=== PATIENT | female | born 1990 | race American Indian/Alaskan Native ===

== ENCOUNTER 2019-04-28 17:10 | Inpatient (IN) | payer BC ==
[2019-04-28] MEDS: Pantoprazole 40 MG Tab.CR PO SCH (18:17)
[2019-04-28] MEDS ORDERED: Famotidine 20 MG/2 ML SDV IVPUSH ONE (18:49)
[2019-04-28] MEDS ORDERED: Lactated Ringers 1,000 ML IV ONE (18:50)
[2019-04-28] MEDS ORDERED: Alum Hydrox/Mag Hydrox/Simeth 30 ML, Lidocaine 2% 15 ML PO ONE ×2 (18:54)
[2019-04-28] MEDS: Lactated Ringers 1,000 ML IV SCH (20:34)
--- NOTE | 2019-04-28 22:52 | PCM.LDHP ---
L&D History of Present Illness - General Date of Service: 04/28/19 Admit Problem/Dx: Patient Status Order with Admit Dx/Problem 04/28/19 17:21 Patient Status [ADT] Routine Admission Diagnosis/Problem Admission Diagnosis/Problem Acute pancreatitis Source of Information: Patient History Limitations: Reports: No Limitations - History of Present Illness Introduction:: 28 yo A2 female at 33 weeks and 4 days gestation presented for evaluation of upper abdominal pain. She states that it started during the night, but when she woke up at 6:30 am she was feeling upper abdominal pain that radiated through to her back. It is a constant pain and is worse on the right side. The pain is aggravated by eating or drinking. She also has increased pain with deep breaths, laughing or going over bumps when she was driving in to the hospital. She denies nausea or vomiting or diarrhea. She is feeling hungry, but trying to eat or drink anything causes an increase in her pain. She rated her pain as 6-7/10. She did have a cholecystectomy about 8 years ago after her last baby delivered. She had gallbladder attacks during that and was hospitalized a number of times with her last . She denies fever or chills. She denies any alcohol use. She has been using a heating pad which helped some. We gave her a pantoprazole when she first came in to the hospital that didn't seem to help. I then gave her a GI cocktail and then Pepcid 20 mg IV which did help relieve some of her discomfort, but still a constant pain that is worse with standing, walking and deep breaths. She is rating her pain now as 3-4/10. She has been having a lot of heartburn with her , worse in the last couple of weeks. She has not been feeling any contractions and baby has been moving well. Her NST is reactive and no contractions noted. She did test positive for Influenza B on 04/16/19 and was treated with Tamiflu. - Related Data Allergies/Adverse Reactions: Allergies Allergy/AdvReac Type Severity Reaction Status Date / Time No Known Allergies Allergy Verified 04/28/19 17:21 Past Medical History Gastrointestinal History: Reports: Cholelithiasis, GERD Other Gastrointestinal History: Cholecystectomy about 2010 : 4 Para: 1 (C/S due to breech presentation) LMP (Approximate): Other OB/BYN History: 1 miscarriage and 1 TA Other Psychiatric History: depression Social & Family History - Family History GI: Reports: Pancreatitis (Mother had pancreatitis this summer 2018, unknown etiology) H&P Review of Systems - Review of Systems: Review Of Systems: See Below General: Reports: No Symptoms HEENT: Reports: No Symptoms Pulmonary: Reports: Pleuritic Chest Pain Gastrointestinal: Reports: Abdominal Pain, Other (Heartburn) Genitourinary: Reports: No Symptoms Musculoskeletal: Reports: No Symptoms Skin: Reports: No Symptoms Psychiatric: Reports: No Symptoms Neurological: Reports: No Symptoms Hematologic/Lymphatic: Reports: No Symptoms L&D Exam - Exam Exam: See Below - Vital Signs Weight: 93.44 kg - OB Specific Contraction Frequency (min): None Movement: Active Heart Tones: Present Heart Tones per Min: 135 Heart Rate (FHR) Variability: Moderate (6-25 bmp) Presentation: Vertex - Exam General: Alert, Oriented, Mild Distress HEENT: EOMI, Hearing Intact, Pupils Equal Neck: Supple, Trachea Midline Lungs: Normal Respiratory Effort, Decreased Breath Sounds (Decreased breath sounds on right side. No crackles or wheezes) Cardiovascular: Regular Rate, Regular Rhythm GI/Abdominal Exam: Normal Bowel Sounds, Soft, Tender (Tender to palpation in RUQ and epigastric area. Increased pain with deep breaths. ) Rectal Exam: Deferred Back Exam: Normal Inspection, Full Range of Motion, CVA Tenderness (R) Extremities: Normal Inspection, Non-Tender, No Pedal Edema Skin: Warm, Dry, Intact Neurological: Cranial Nerves Intact, Normal Gait, Normal Speech Psychiatric: Alert, Normal Affect, Normal Mood - Patient Data Lab Results Last 24 hrs: Laboratory Results - last 24 hr 04/28/19 04/28/19 04/28/19 Range/Units 18:00 18:00 18:00 WBC 11.50 H (3.98-10.04) K/mm3 RBC 3.71 L (3.98-5.22) M/mm3 Hgb 11.4 (11.2-15.7) gm/dl Hct 34.9 (34.1-44.9) % MCV 94.1 (79.4-94.8) fl MCH 30.7 (25.6-32.2) pg MCHC 32.7 (32.2-35.5) g/dl RDW Std Deviation 44.3 (36.4-46.3) fL Plt Count 305 (182-369) K/mm3 MPV 9.3 L (9.4-12.3) fl Neut % (Auto) 73.8 H (34.0-71.1) % Lymph % (Auto) 15.8 L (19.3-51.7) % [place] % (Auto) 8.8 (4.7-12.5) % Eos % (Auto) 1.1 (0.7-5.8) Baso % (Auto) 0.2 (0.1-1.2) % Neut # (Auto) 8.48 H (1.56-6.13) K/mm3 Lymph # (Auto) 1.82 (1.18-3.74) K/mm3 [place] # (Auto) 1.01 H (0.24-0.36) K/mm3 Eos # (Auto) 0.13 (0.04-0.36) K/mm3 Baso # (Auto) 0.02 (0.01-0.08) K/mm3 Manual Slide Review Not Reportable Sodium 140 (136-145) mEq/L Potassium 3.5 (3.5-5.1) mEq/L Chloride 106 (98-107) mEq/L Carbon Dioxide 22 (21-32) mEq/L Anion Gap 15.5 H (5-15) BUN 5 L (7-18) mg/dL Creatinine 0.3 L (0.55-1.02) mg/dL Est Cr Clr Drug Dosing 241.08 mL/min Estimated GFR (MDRD) > 60 (>60) mL/min BUN/Creatinine Ratio 16.7 (14-18) Glucose 95 (74-106) mg/dL Calcium 8.6 (8.5-10.1) mg/dL Total Bilirubin 0.4 (0.2-1.0) mg/dL AST 19 (15-37) U/L ALT 15 (14-59) U/L Alkaline Phosphatase 109 (46-116) U/L C-Reactive Protein 1.2 H* (<1.0) mg/dL Total Protein 6.6 (6.4-8.2) g/dl Albumin 2.5 L (3.4-5.0) g/dl Globulin 4.1 gm/dL Albumin/Globulin Ratio 0.6 L (1-2) Amylase 136 H (25-115) U/L Lipase (73-393) U/L Urine Color (Yellow) Urine Appearance (Clear) Urine pH (5.0-8.0) Ur Specific [place] (1.005-1.030) Urine Protein (Negative) Urine Glucose (UA) (Negative) Urine Ketones (Negative) Urine Occult Blood (Negative) Urine Nitrite (Negative) Urine Bilirubin (Negative) Urine Urobilinogen (0.2-1.0) Ur Leukocyte Esterase (Negative) Urine RBC (0-5) /hpf Urine WBC (0-5) /hpf Ur Squamous Epith Cells (0-5) /hpf Urine Bacteria (FEW) /hpf Urine Mucus (FEW) /hpf 04/28/19 04/28/19 Range/Units 18:00 19:00 WBC (3.98-10.04) K/mm3 RBC (3.98-5.22) M/mm3 Hgb (11.2-15.7) gm/dl Hct (34.1-44.9) % MCV (79.4-94.8) fl MCH (25.6-32.2) pg MCHC (32.2-35.5) g/dl RDW Std Deviation (36.4-46.3) fL Plt Count (182-369) K/mm3 MPV (9.4-12.3) fl Neut % (Auto) (34.0-71.1) % Lymph % (Auto) (19.3-51.7) % [place] % (Auto) (4.7-12.5) % Eos % (Auto) (0.7-5.8) Baso % (Auto) (0.1-1.2) % Neut # (Auto) (1.56-6.13) K/mm3 Lymph # (Auto) (1.18-3.74) K/mm3 [place] # (Auto) (0.24-0.36) K/mm3 Eos # (Auto) (0.04-0.36) K/mm3 Baso # (Auto) (0.01-0.08) K/mm3 Manual Slide Review Sodium (136-145) mEq/L Potassium (3.5-5.1) mEq/L Chloride (98-107) mEq/L Carbon Dioxide (21-32) mEq/L Anion Gap (5-15) BUN (7-18) mg/dL Creatinine (0.55-1.02) mg/dL Est Cr Clr Drug Dosing mL/min Estimated GFR (MDRD) (>60) mL/min BUN/Creatinine Ratio (14-18) Glucose (74-106) mg/dL Calcium (8.5-10.1) mg/dL Total Bilirubin (0.2-1.0) mg/dL AST (15-37) U/L ALT (14-59) U/L Alkaline Phosphatase (46-116) U/L C-Reactive Protein (<1.0) mg/dL Total Protein (6.4-8.2) g/dl Albumin (3.4-5.0) g/dl Globulin gm/dL Albumin/Globulin Ratio (1-2) Amylase (25-115) U/L Lipase 1055 H (73-393) U/L Urine Color Yellow (Yellow) Urine Appearance Clear (Clear) Urine pH 7.5 (5.0-8.0) Ur Specific [place] 1.020 (1.005-1.030) Urine Protein Negative (Negative) Urine Glucose (UA) Negative (Negative) Urine Ketones Negative (Negative) Urine Occult Blood Negative (Negative) Urine Nitrite Negative (Negative) Urine Bilirubin Negative (Negative) Urine Urobilinogen 0.2 (0.2-1.0) Ur Leukocyte Esterase Negative (Negative) Urine RBC 0-5 (0-5) /hpf Urine WBC 0-5 (0-5) /hpf Ur Squamous Epith Cells 0-5 (0-5) /hpf Urine Bacteria Moderate H (FEW) /hpf Urine Mucus Moderate H (FEW) /hpf Result Diagrams: 04/28/19 18:00 04/28/19 18:00 Imaging Impressions Last 24 hrs: Abdominal ultrasound read as no focal hepatic lesion. STatus post cholecystectomy, no abnormal collection demonstrated in the gallbladder fossa. The common bile duct is nondilated. Pancreas is not well evaluated. Mild distention of the right renal pelvis and right ureter is mildly prominent, most likely due to . CXR done tonight, report pending but appears clear to me. - Problem List (1) Acute pancreatitis SNOMED Code(s): 119009119 ICD Code: K85.90 - ACUTE PANCREATITIS WITHOUT NECROSIS OR INFECTION, UNSP Status: Acute Current Visit: Yes (2) 33 weeks gestation of SNOMED Code(s): 70073479 ICD Code: Z3A.33 - 33 WEEKS GESTATION OF Status: Acute Current Visit: Yes (3) Status post cholecystectomy SNOMED Code(s): 118881962, 01631108, 227817890 ICD Code: Z90.49 - ACQUIRED ABSENCE OF OTHER SPECIFIED PARTS OF DIGESTIVE TRACT Status: Acute Current Visit: Yes (4) GERD (gastroesophageal reflux disease) SNOMED Code(s): 012861016 ICD Code: K21.9 - GASTRO-ESOPHAGEAL REFLUX DISEASE WITHOUT ESOPHAGITIS Status: Acute Current Visit: Yes Problem List Initiated/Reviewed/Updated: Yes Orders Last 24hrs: Active Orders 24 hr Category Date Time Status Patient Status [ADT] Routine ADT 04/28/19 17:21 Active Antiembolic Devices [RC] .Routine Care 04/28/19 22:22 Ordered Non Stress Test [RC] PER UNIT ROUTINE Care 04/28/19 17:21 Active Non Stress Test [RC] PER UNIT ROUTINE Care 04/28/19 22:18 Ordered Intake and Output [RC] Q2H Care 04/28/19 22:21 Ordered Notify Provider Consults [RC] ASDIRECTED Care 04/28/19 22:27 Ordered Notify Provider [RC] PRN Care 04/28/19 22:19 Ordered VTE/DVT Education [RC] PER UNIT ROUTINE Care 04/28/19 22:22 Ordered Vital Signs [RC] PER UNIT ROUTINE Care 04/28/19 17:21 Active Vital Signs [RC] PER UNIT ROUTINE Care 04/28/19 22:19 Ordered Consult to Physician [CONS] Urgent Cons 04/28/19 22:18 Ordered Nothing Per Oral Diet [DIET] Diet 04/28/19 Dinner Ordered Abdomen Ltd [US] Routine Exams 04/28/19 20:48 Ordered Chest 2V [CR] Routine Exams 04/28/19 20:48 Ordered CBC WITH AUTO DIFF [HEME] AM Lab 04/29/19 05:11 Ordered COMPREHENSIVE METABOLIC PN,CMP [CHEM] AM Lab 04/29/19 05:11 Ordered LIPASE [CHEM] AM Lab 04/29/19 05:11 Ordered Famotidine [Pepcid] Med 04/28/19 22:18 Ordered 20 mg IV Q12H PRN Lactated Ringers [Ringers, Lactated] 1,000 ml Med 04/28/19 19:00 Active IV ASDIRECTED Ondansetron [Zofran] Med 04/28/19 22:18 Ordered 4 mg IV Q4H PRN Pantoprazole [ProTONIX] Med 04/28/19 17:45 Active 40 mg PO DAILY fentaNYL [Sublimaze] Med 04/28/19 22:41 Ordered 25 mcg IVPUSH Q1H PRN DVT/VTE Prophylaxis Reflex [OM.PC] Routine Oth 04/28/19 22:18 Ordered Resuscitation Status Routine Resus Stat 04/28/19 17:21 Ordered Medication Orders Famotidine (Pepcid) 20 mg IV Q12H PRN PRN Reason: Heartburn Fentanyl (Sublimaze) 25 mcg IVPUSH Q1H PRN PRN Reason: Abdominal Pain Lactated Ringer's (Ringers, Lactated) 1,000 mls @ 200 mls/hr IV ASDIRECTED [facility] Last Admin: 04/28/19 20:34 Dose: 100 mls/hr Ondansetron HCl (Zofran) 4 mg IV Q4H PRN PRN Reason: Nausea/Vomiting Pantoprazole Sodium (Protonix) 40 mg PO DAILY [facility] Last Admin: 04/28/19 18:17 Dose: 40 mg Assessment/Plan Comment:: 28 year old A2 at 33+4 weeks gestation with acute pancreatitis, mild. Symptoms started this morning. No nausea or vomiting, but limited oral intake due to increased pain when she tries to eat or drink. GERD has been more severe lately as well. Normal , no signs of labor. Plan: Consult hospitalist, DR. Gamble to assist with medical management of acute pancreatitis. IV hydration and NPO for now. LR at 200 ml/hr. Monitor ins and outs every 2 hours and adjust IV fluid rate if needed for poor urine output. She has voided 3 times since we started IV fluids. DVT prophylaxis per protocol. Pain management - currently has mild pain, 3/10 and is not wanting any pain meds. Will order IV fentanyl as needed Repeat labs in am Will do daily NST to monitor well being and as needed if she starts feeling contractions or decreased movement.
[2019-04-28] MEDS: fentaNYL 100 MCG/2 ML SDV IVPUSH PRN (23:19)
--- NOTE | 2019-04-29 00:50 | PCM.CONS ---
H&P History of Present Illness - General Date of Service: 04/29/19 Admit Problem/Dx: Patient Status Order with Admit Dx/Problem 04/28/19 17:21 Patient Status [ADT] Routine Admission Diagnosis/Problem Admission Diagnosis/Problem Acute pancreatitis Source of Information: Patient, Family, Old Records, Provider, RN Notes Reviewed History Limitations: Reports: No Limitations - History of Present Illness Initial Comments - Free Text/Narative: This is a 28 yo A2 at 33 weeks and 4 days gestation with past medical hx/o GERD and Cholelithiasis S/p Cholecystectomy in 2010w ho presents to OB for right upper quadrant pain with radiation to her back that started a couple of night ago and was diagnosed with acute pancreatitis. The hospitalist service was consulted to help with further evaluation and medical management. - Related Data Allergies/Adverse Reactions: Allergies Allergy/AdvReac Type Severity Reaction Status Date / Time No Known Allergies Allergy Verified 04/28/19 17:21 Past Medical History Gastrointestinal History: Reports: Cholelithiasis, GERD Other Gastrointestinal History: Cholecystectomy about 2010 [employer] History: Reports: , Spontaneous , Therapeutic Other OB/BYN History: 1 miscarriage and 1 TA Psychiatric History: Reports: Depression Other Psychiatric History: depression - Past Surgical History HEENT Surgical History: Reports: Myringotomy w Tube(s), Oral Surgery Female Surgical History: Reports: Section Social & Family History - Family History GI: Reports: Pancreatitis (Mother had pancreatitis this summer 2018, unknown etiology) - Tobacco Use Smoking Status *Q: Never Smoker - Recreational Drug Use Recreational Drug Type: Reports: Marijuana/Hashish Other Recreational Drug Type: pt denies drug use with ; notes she had Marijuana in August 2018 H&P Review of Systems - Review of Systems: Review Of Systems: See Below General: Reports: Decreased Appetite Pulmonary: Denies: Shortness of Breath Cardiovascular: Denies: Chest Pain, Lightheadedness Gastrointestinal: Reports: Abdominal Pain. Denies: Nausea, Vomiting Genitourinary: Reports: No Symptoms Musculoskeletal: Reports: No Symptoms Skin: Denies: Rash Psychiatric: Denies: Depression, Anxiety, Hallucinations Neurological: Reports: No Symptoms Hematologic/Lymphatic: Reports: No Symptoms Immunologic: Reports: No Symptoms Exam - Exam Exam: See Below - Vital Signs Weight: 93.44 kg - Exam General: Alert, Oriented, Cooperative HEENT: Conjunctiva Clear, EACs Clear, EOMI, Hearing Intact, Mucosa Moist & [place] , Nares Patent, Normal Nasal Septum, Posterior Pharynx Clear, Pupils Reactive, TMs Clear Neck: Supple, Trachea Midline Lungs: Clear to Auscultation, Normal Respiratory Effort Cardiovascular: Regular Rate, Regular Rhythm GI/Abdominal Exam: Normal Bowel Sounds, No Abnormal Bruit, No Mass, Tender ( right upper quadrant), Other (enlarged abdomen) (Female) Exam: Deferred Rectal (Female) Exam: Deferred Back Exam: Normal Inspection, Decreased Range of Motion Extremities: Normal Inspection, Normal Range of Motion, Non-Tender, No Pedal Edema, Normal Capillary Refill Peripheral Pulses: 2+: Posterior Tibial (L), Posterior Tibial (R), Dorsalis Pedis (L), Dorsalis Pedis (R) Skin: Warm, Dry, Intact Neuro Extensive - Mental Status: Oriented x3, Normal Cognition, Memory Intact Neuro Extensive - Motor, Sensory, Reflexes: CN II-XII Intact (limited but grossly intact), Normal Gait Psychiatric: Alert, Normal Affect, Normal Mood - Patient Data Lab Results Last 24 hrs: Laboratory Results - last 24 hr 04/28/19 04/28/19 04/28/19 Range/Units 18:00 18:00 18:00 WBC 11.50 H (3.98-10.04) K/mm3 RBC 3.71 L (3.98-5.22) M/mm3 Hgb 11.4 (11.2-15.7) gm/dl Hct 34.9 (34.1-44.9) % MCV 94.1 (79.4-94.8) fl MCH 30.7 (25.6-32.2) pg MCHC 32.7 (32.2-35.5) g/dl RDW Std Deviation 44.3 (36.4-46.3) fL Plt Count 305 (182-369) K/mm3 MPV 9.3 L (9.4-12.3) fl Neut % (Auto) 73.8 H (34.0-71.1) % Lymph % (Auto) 15.8 L (19.3-51.7) % [place] % (Auto) 8.8 (4.7-12.5) % Eos % (Auto) 1.1 (0.7-5.8) Baso % (Auto) 0.2 (0.1-1.2) % Neut # (Auto) 8.48 H (1.56-6.13) K/mm3 Lymph # (Auto) 1.82 (1.18-3.74) K/mm3 [place] # (Auto) 1.01 H (0.24-0.36) K/mm3 Eos # (Auto) 0.13 (0.04-0.36) K/mm3 Baso # (Auto) 0.02 (0.01-0.08) K/mm3 Manual Slide Review Not Reportable Sodium 140 (136-145) mEq/L Potassium 3.5 (3.5-5.1) mEq/L Chloride 106 (98-107) mEq/L Carbon Dioxide 22 (21-32) mEq/L Anion Gap 15.5 H (5-15) BUN 5 L (7-18) mg/dL Creatinine 0.3 L (0.55-1.02) mg/dL Est Cr Clr Drug Dosing 241.08 mL/min Estimated GFR (MDRD) > 60 (>60) mL/min BUN/Creatinine Ratio 16.7 (14-18) Glucose 95 (74-106) mg/dL Lactic Acid (0.4-2.0) mmol/L Calcium 8.6 (8.5-10.1) mg/dL Total Bilirubin 0.4 (0.2-1.0) mg/dL AST 19 (15-37) U/L ALT 15 (14-59) U/L Alkaline Phosphatase 109 (46-116) U/L C-Reactive Protein 1.2 H* (<1.0) mg/dL Total Protein 6.6 (6.4-8.2) g/dl Albumin 2.5 L (3.4-5.0) g/dl Globulin 4.1 gm/dL Albumin/Globulin Ratio 0.6 L (1-2) Amylase 136 H (25-115) U/L Lipase (73-393) U/L Urine Color (Yellow) Urine Appearance (Clear) Urine pH (5.0-8.0) Ur Specific [place] (1.005-1.030) Urine Protein (Negative) Urine Glucose (UA) (Negative) Urine Ketones (Negative) Urine Occult Blood (Negative) Urine Nitrite (Negative) Urine Bilirubin (Negative) Urine Urobilinogen (0.2-1.0) Ur Leukocyte Esterase (Negative) Urine RBC (0-5) /hpf Urine WBC (0-5) /hpf Ur Squamous Epith Cells (0-5) /hpf Urine Bacteria (FEW) /hpf Urine Mucus (FEW) /hpf 04/28/19 04/28/19 04/28/19 Range/Units 18:00 19:00 23:35 WBC (3.98-10.04) K/mm3 RBC (3.98-5.22) M/mm3 Hgb (11.2-15.7) gm/dl Hct (34.1-44.9) % MCV (79.4-94.8) fl MCH (25.6-32.2) pg MCHC (32.2-35.5) g/dl RDW Std Deviation (36.4-46.3) fL Plt Count (182-369) K/mm3 MPV (9.4-12.3) fl Neut % (Auto) (34.0-71.1) % Lymph % (Auto) (19.3-51.7) % [place] % (Auto) (4.7-12.5) % Eos % (Auto) (0.7-5.8) Baso % (Auto) (0.1-1.2) % Neut # (Auto) (1.56-6.13) K/mm3 Lymph # (Auto) (1.18-3.74) K/mm3 [place] # (Auto) (0.24-0.36) K/mm3 Eos # (Auto) (0.04-0.36) K/mm3 Baso # (Auto) (0.01-0.08) K/mm3 Manual Slide Review Sodium (136-145) mEq/L Potassium (3.5-5.1) mEq/L Chloride (98-107) mEq/L Carbon Dioxide (21-32) mEq/L Anion Gap (5-15) BUN (7-18) mg/dL Creatinine (0.55-1.02) mg/dL Est Cr Clr Drug Dosing mL/min Estimated GFR (MDRD) (>60) mL/min BUN/Creatinine Ratio (14-18) Glucose (74-106) mg/dL Lactic Acid 0.7 (0.4-2.0) mmol/L Calcium (8.5-10.1) mg/dL Total Bilirubin (0.2-1.0) mg/dL AST (15-37) U/L ALT (14-59) U/L Alkaline Phosphatase (46-116) U/L C-Reactive Protein (<1.0) mg/dL Total Protein (6.4-8.2) g/dl Albumin (3.4-5.0) g/dl Globulin gm/dL Albumin/Globulin Ratio (1-2) Amylase (25-115) U/L Lipase 1055 H (73-393) U/L Urine Color Yellow (Yellow) Urine Appearance Clear (Clear) Urine pH 7.5 (5.0-8.0) Ur Specific [place] 1.020 (1.005-1.030) Urine Protein Negative (Negative) Urine Glucose (UA) Negative (Negative) Urine Ketones Negative (Negative) Urine Occult Blood Negative (Negative) Urine Nitrite Negative (Negative) Urine Bilirubin Negative (Negative) Urine Urobilinogen 0.2 (0.2-1.0) Ur Leukocyte Esterase Negative (Negative) Urine RBC 0-5 (0-5) /hpf Urine WBC 0-5 (0-5) /hpf Ur Squamous Epith Cells 0-5 (0-5) /hpf Urine Bacteria Moderate H (FEW) /hpf Urine Mucus Moderate H (FEW) /hpf Result Diagrams: 04/28/19 18:00 04/28/19 18:00 Imaging Impressions Last 24 hrs: CRX V-rad report read as no radiographic evidence or active cardiopulmonary disease. US abdominal U/S V-rad report read as Cholecystectomy > no abnormal collection demonstrated in the GB fossa. The common bile duct is non-dilated. Pancreas is not well evaluated. Sepsis Event Note - Evaluation Sepsis Screening Result: No Definite Risk Consult PN Assessment/Plan POD#: 0 Procedures: Procedures ASSAY OF FERRITIN (01/08/19) ASSAY OF IRON (01/08/19) ASSAY THYROID STIM HORMONE (12/26/18) BLOOD TYPING SEROLOGIC ABO (10/09/18) BLOOD TYPING SEROLOGIC RH(D) (10/09/18) CHORIONIC GONADOTROPIN TEST (10/09/18) COMPLETE CBC W/AUTO DIFF WBC (03/18/19) GLUCOSE TEST (03/18/19) HEPATITIS C AB TEST (12/26/18) HIV-1 AG W/HIV-1 & HIV-2 AB (12/26/18) METABOLIC PANEL TOTAL CA (01/08/19) OB US >/= 14 WKS SNGL FETUS (02/05/19) RBC ANTIBODY SCREEN (10/09/18) ROUTINE VENIPUNCTURE (03/18/19) SMEAR WET [place] SALINE/INK (12/29/18) SYPHILIS TEST NON-TREP QUAL (03/18/19) TRICHOMONAS ASSAY W/OPTIC (12/29/18) URINALYSIS AUTO W/O SCOPE (12/26/18) URINE CULTURE/COLONY COUNT (12/26/18) VARICELLA-ZOSTER ANTIBODY (12/26/18) Problem List Initiated/Reviewed/Updated: Yes My Orders Last 24 Hours: My Active Orders 04/29/19 05:11 LACTATE DEHYDROGENASE,LDH [CHEM] AM Plan: 28 yo A2 at 33 weeks and 4 days gestation who presents to OB for right upper quadrant pain with radiation to her back Assessment: Acute Pancreatitis with 0 to 1 -/+ (pending LDH) [place]'s Criteria. Supportive care and medical management for now. Mild Leukocytosis with WBC of 11.50 2/2 to above. Will monitor. Status post cholecystectomy in 2010 GERD, H2B/PPI Hypoalbuminemia with Albumin of 2.6. Dietary consult once po with meals Plan: From the hospitalist standpoint after reviewing her diagnostic data and imaging studies, we felt she has a mild case of acute pancreatitis with mildly elevated WBC, very minimal CRP and a normal LA level. Her abdominal U/S also showed no acute finding and her pain has essentially improved with narcotics. At this point, we recommend to continue current treatment, serial lipase level, Lipid panel, LDH and routine AM labs. NPO except ice chips or sips of water. No po meals until her lipase level is at or < 500. If she does not improve with medical management, we recommend general surgery consult. Thank you for the opportunity to participate in the management of this patinet. Any changes or further recommendations will be based on the patient's course. We will follow her along with you.
[2019-04-29] MEDS: fentaNYL 100 MCG/2 ML SDV IVPUSH PRN ×6 (01:43→09:26)
[2019-04-29] MEDS: Ondansetron 4 MG/2 ML SDV IV PRN ×2 (03:29→11:06)
[2019-04-29] MEDS: Lactated Ringers 1,000 ML IV SCH (06:06)
--- NOTE | 2019-04-29 07:02 | CR ---
Chest: Two views of the chest were obtained. Comparison: No previous chest imaging. Heart size and mediastinum are normal. Slight atelectasis is seen within the left lung base. Lungs otherwise are clear. Bony structures are unremarkable. Surgical clips are seen from prior cholecystectomy. Impression: 1. Slight atelectasis within left lung base. 2. Nothing acute is appreciated on two-view chest x-ray. Diagnostic code #2 This report was dictated in [place] Standard Time I agree with preliminary report from [facility], finalized on 04/29/19, 12:23 AM Central Time
--- NOTE | 2019-04-29 07:02 | US ---
Limited abdominal ultrasound: Multiple real-time images of the upper right abdomen were obtained. Comparison: No prior abdominal imaging. Findings: Liver shows no focal abnormality. Previous cholecystectomy is noted. No biliary duct dilatation is seen. Right kidney shows an extrarenal pelvis which is slightly prominent. Right ureter is also slightly prominent in size. Right kidney has a length of 12.6 cm. Visualized portions of the pancreas appear within normal limits. Impression: 1. Mildly prominent extrarenal pelvis and proximal right ureter within the right kidney. Findings may relate to hydronephrosis of . Difficult to exclude nonvisualized partially obstructing ureteral stone, please correlate with the patient's symptoms. 2. Prior cholecystectomy with no biliary duct dilatation. 3. No additional abnormality is appreciated on right upper quadrant abdominal ultrasound. Diagnostic code #2 This report was dictated in [place] Standard Time I agree with preliminary report from [facility], finalized on 04/28/19, 11:54 PM Central Time
[2019-04-29] MEDS ORDERED: Potassium Chloride 20 MEQ Tab.ER PO ONE (07:21)
--- NOTE | 2019-04-29 08:07 | PCM.PN ---
- General Info Date of Service: 04/29/19 Admission Dx/Problem (Free Text): Patient Status Order with Admit Dx/Problem 04/28/19 17:21 Patient Status [ADT] Routine Admission Diagnosis/Problem Admission Diagnosis/Problem Acute pancreatitis Subjective Update: Patient has been having more pain and has been getting 50 mcg IV fentanyl every hour since 6 am. Her pain will get up to 10/10 and down to about 6/10 with the fentanyl. She describes her pain as constant, worst in the RUQ, goes through to the back, but also feels pain radiating down to her abdomen. Pain is worse if she moves, especially when she gets up to the bathroom. She is nauseated now after getting up to the bathroom because her pain is so severe. She has not vomited. Has not had a BM today. NST this am is reactive, no contractions noted just a few tightenings. Donis score as of this am is 0. Functional Status: Reports: Ambulating, Urinating. Denies: Pain Controlled, New Symptoms - Review of Systems General: Denies: Fever, Fatigue, Malaise, Chills, Night Sweats HEENT: Reports: No Symptoms Pulmonary: Denies: Shortness of Breath Cardiovascular: Denies: Chest Pain Gastrointestinal: Denies: Abdominal Pain, Nausea, Vomiting Genitourinary: Reports: No Symptoms Musculoskeletal: Reports: No Symptoms Skin: Denies: Pruritis, Rash Neurological: Denies: Trouble Speaking, Weakness, Gait Disturbance Psychiatric: Denies: Depression, Anxiety, Agitation, Cravings Systems Review Comment:: She did not rest well last night due to pain. Her pain was not fully controlled so she is now on [employer] (narcotic gtt). She is passing gas and denies having nausea or vomiting. - Patient Data Vitals - Most Recent: Last Vital Signs Temp 36.3 C 04/29/19 03:33 Pulse 85 04/29/19 03:33 Resp 16 04/29/19 03:33 BP 102/83 04/29/19 03:33 Pulse Ox 97 04/29/19 03:33 Weight - Most Recent: 93.44 kg I&O - Last 24 Hours: Intake & Output 04/28/19 04/29/19 04/29/19 22:59 06:59 14:59 Intake Total 1000 1000 Output Total 750 Balance 1000 250 Lab Results Last 24 Hours: Laboratory Results - last 24 hr 04/28/19 04/28/19 04/28/19 Range/Units 18:00 18:00 18:00 WBC 11.50 H (3.98-10.04) K/mm3 RBC 3.71 L (3.98-5.22) M/mm3 Hgb 11.4 (11.2-15.7) gm/dl Hct 34.9 (34.1-44.9) % MCV 94.1 (79.4-94.8) fl MCH 30.7 (25.6-32.2) pg MCHC 32.7 (32.2-35.5) g/dl RDW Std Deviation 44.3 (36.4-46.3) fL Plt Count 305 (182-369) K/mm3 MPV 9.3 L (9.4-12.3) fl Neut % (Auto) 73.8 H (34.0-71.1) % Lymph % (Auto) 15.8 L (19.3-51.7) % [place] % (Auto) 8.8 (4.7-12.5) % Eos % (Auto) 1.1 (0.7-5.8) Baso % (Auto) 0.2 (0.1-1.2) % Neut # (Auto) 8.48 H (1.56-6.13) K/mm3 Lymph # (Auto) 1.82 (1.18-3.74) K/mm3 [place] # (Auto) 1.01 H (0.24-0.36) K/mm3 Eos # (Auto) 0.13 (0.04-0.36) K/mm3 Baso # (Auto) 0.02 (0.01-0.08) K/mm3 Manual Slide Review Not Reportable Sodium 140 (136-145) mEq/L Potassium 3.5 (3.5-5.1) mEq/L Chloride 106 (98-107) mEq/L Carbon Dioxide 22 (21-32) mEq/L Anion Gap 15.5 H (5-15) BUN 5 L (7-18) mg/dL Creatinine 0.3 L (0.55-1.02) mg/dL Est Cr Clr Drug Dosing 241.08 mL/min Estimated GFR (MDRD) > 60 (>60) mL/min BUN/Creatinine Ratio 16.7 (14-18) Glucose 95 (74-106) mg/dL Lactic Acid (0.4-2.0) mmol/L Calcium 8.6 (8.5-10.1) mg/dL Total Bilirubin 0.4 (0.2-1.0) mg/dL AST 19 (15-37) U/L ALT 15 (14-59) U/L Alkaline Phosphatase 109 (46-116) U/L Lactate Dehydrogenase (81-234) U/L C-Reactive Protein 1.2 H* (<1.0) mg/dL Total Protein 6.6 (6.4-8.2) g/dl Albumin 2.5 L (3.4-5.0) g/dl Globulin 4.1 gm/dL Albumin/Globulin Ratio 0.6 L (1-2) Triglycerides (<150) mg/dL Cholesterol (<200) mg/dL LDL Cholesterol Direct (<100) mg/dL HDL Cholesterol (40-59) mg/dL Amylase 136 H (25-115) U/L Lipase (73-393) U/L Urine Color (Yellow) Urine Appearance (Clear) Urine pH (5.0-8.0) Ur Specific [place] (1.005-1.030) Urine Protein (Negative) Urine Glucose (UA) (Negative) Urine Ketones (Negative) Urine Occult Blood (Negative) Urine Nitrite (Negative) Urine Bilirubin (Negative) Urine Urobilinogen (0.2-1.0) Ur Leukocyte Esterase (Negative) Urine RBC (0-5) /hpf Urine WBC (0-5) /hpf Ur Squamous Epith Cells (0-5) /hpf Urine Bacteria (FEW) /hpf Urine Mucus (FEW) /hpf 04/28/19 04/28/19 04/28/19 Range/Units 18:00 19:00 23:35 WBC (3.98-10.04) K/mm3 RBC (3.98-5.22) M/mm3 Hgb (11.2-15.7) gm/dl Hct (34.1-44.9) % MCV (79.4-94.8) fl MCH (25.6-32.2) pg MCHC (32.2-35.5) g/dl RDW Std Deviation (36.4-46.3) fL Plt Count (182-369) K/mm3 MPV (9.4-12.3) fl Neut % (Auto) (34.0-71.1) % Lymph % (Auto) (19.3-51.7) % [place] % (Auto) (4.7-12.5) % Eos % (Auto) (0.7-5.8) Baso % (Auto) (0.1-1.2) % Neut # (Auto) (1.56-6.13) K/mm3 Lymph # (Auto) (1.18-3.74) K/mm3 [place] # (Auto) (0.24-0.36) K/mm3 Eos # (Auto) (0.04-0.36) K/mm3 Baso # (Auto) (0.01-0.08) K/mm3 Manual Slide Review Sodium (136-145) mEq/L Potassium (3.5-5.1) mEq/L Chloride (98-107) mEq/L Carbon Dioxide (21-32) mEq/L Anion Gap (5-15) BUN (7-18) mg/dL Creatinine (0.55-1.02) mg/dL Est Cr Clr Drug Dosing mL/min Estimated GFR (MDRD) (>60) mL/min BUN/Creatinine Ratio (14-18) Glucose (74-106) mg/dL Lactic Acid 0.7 (0.4-2.0) mmol/L Calcium (8.5-10.1) mg/dL Total Bilirubin (0.2-1.0) mg/dL AST (15-37) U/L ALT (14-59) U/L Alkaline Phosphatase (46-116) U/L Lactate Dehydrogenase (81-234) U/L C-Reactive Protein (<1.0) mg/dL Total Protein (6.4-8.2) g/dl Albumin (3.4-5.0) g/dl Globulin gm/dL Albumin/Globulin Ratio (1-2) Triglycerides (<150) mg/dL Cholesterol (<200) mg/dL LDL Cholesterol Direct (<100) mg/dL HDL Cholesterol (40-59) mg/dL Amylase (25-115) U/L Lipase 1055 H (73-393) U/L Urine Color Yellow (Yellow) Urine Appearance Clear (Clear) Urine pH 7.5 (5.0-8.0) Ur Specific [place] 1.020 (1.005-1.030) Urine Protein Negative (Negative) Urine Glucose (UA) Negative (Negative) Urine Ketones Negative (Negative) Urine Occult Blood Negative (Negative) Urine Nitrite Negative (Negative) Urine Bilirubin Negative (Negative) Urine Urobilinogen 0.2 (0.2-1.0) Ur Leukocyte Esterase Negative (Negative) Urine RBC 0-5 (0-5) /hpf Urine WBC 0-5 (0-5) /hpf Ur Squamous Epith Cells 0-5 (0-5) /hpf Urine Bacteria Moderate H (FEW) /hpf Urine Mucus Moderate H (FEW) /hpf 04/29/19 04/29/19 04/29/19 Range/Units 05:15 05:15 05:15 WBC 13.13 H (3.98-10.04) K/mm3 RBC 3.70 L (3.98-5.22) M/mm3 Hgb 11.2 (11.2-15.7) gm/dl Hct 35.2 (34.1-44.9) % MCV 95.1 H (79.4-94.8) fl MCH 30.3 (25.6-32.2) pg MCHC 31.8 L (32.2-35.5) g/dl RDW Std Deviation 44.8 (36.4-46.3) fL Plt Count 311 (182-369) K/mm3 MPV 9.9 (9.4-12.3) fl Neut % (Auto) 75.7 H (34.0-71.1) % Lymph % (Auto) 14.0 L (19.3-51.7) % [place] % (Auto) 9.1 (4.7-12.5) % Eos % (Auto) 0.8 (0.7-5.8) Baso % (Auto) 0.1 (0.1-1.2) % Neut # (Auto) 9.94 H (1.56-6.13) K/mm3 Lymph # (Auto) 1.84 (1.18-3.74) K/mm3 [place] # (Auto) 1.19 H (0.24-0.36) K/mm3 Eos # (Auto) 0.11 (0.04-0.36) K/mm3 Baso # (Auto) 0.01 (0.01-0.08) K/mm3 Manual Slide Review Sodium 138 (136-145) mEq/L Potassium 3.4 L (3.5-5.1) mEq/L Chloride 105 (98-107) mEq/L Carbon Dioxide 20 L (21-32) mEq/L Anion Gap 16.4 H (5-15) BUN 5 L (7-18) mg/dL Creatinine 0.5 L (0.55-1.02) mg/dL Est Cr Clr Drug Dosing 144.65 mL/min Estimated GFR (MDRD) > 60 (>60) mL/min BUN/Creatinine Ratio 10.0 L (14-18) Glucose 95 97 (74-106) mg/dL Lactic Acid (0.4-2.0) mmol/L Calcium 8.6 (8.5-10.1) mg/dL Total Bilirubin 0.7 (0.2-1.0) mg/dL AST 17 (15-37) U/L ALT 14 (14-59) U/L Alkaline Phosphatase 105 (46-116) U/L Lactate Dehydrogenase 147 (81-234) U/L C-Reactive Protein (<1.0) mg/dL Total Protein 6.4 (6.4-8.2) g/dl Albumin 2.5 L (3.4-5.0) g/dl Globulin 3.9 gm/dL Albumin/Globulin Ratio 0.6 L (1-2) Triglycerides 376 H (<150) mg/dL Cholesterol 178 (<200) mg/dL LDL Cholesterol Direct 79 (<100) mg/dL HDL Cholesterol 57.0 (40-59) mg/dL Amylase (25-115) U/L Lipase 2754 H (73-393) U/L Urine Color (Yellow) Urine Appearance (Clear) Urine pH (5.0-8.0) Ur Specific [place] (1.005-1.030) Urine Protein (Negative) Urine Glucose (UA) (Negative) Urine Ketones (Negative) Urine Occult Blood (Negative) Urine Nitrite (Negative) Urine Bilirubin (Negative) Urine Urobilinogen (0.2-1.0) Ur Leukocyte Esterase (Negative) Urine RBC (0-5) /hpf Urine WBC (0-5) /hpf Ur Squamous Epith Cells (0-5) /hpf Urine Bacteria (FEW) /hpf Urine Mucus (FEW) /hpf Med Orders - Current: Current Medications Famotidine (Pepcid) 20 mg IV Q12H PRN PRN Reason: Heartburn Fentanyl (Sublimaze) 25 mcg IVPUSH Q1H PRN PRN Reason: Abdominal Pain Last Admin: 04/29/19 01:43 Dose: 25 mcg Fentanyl (Sublimaze) 50 mcg IVPUSH Q1H PRN PRN Reason: Abdominal Pain Last Admin: 04/29/19 07:07 Dose: 50 mcg Lactated Ringer's (Ringers, Lactated) 1,000 mls @ 200 mls/hr IV ASDIRECTED [facility] Last Admin: 04/29/19 06:06 Dose: 200 mls/hr Ondansetron HCl (Zofran) 4 mg IV Q4H PRN PRN Reason: Nausea/Vomiting Last Admin: 04/29/19 03:29 Dose: 4 mg Pantoprazole Sodium (Protonix) 40 mg PO DAILY [facility] Last Admin: 04/28/19 18:17 Dose: 40 mg Discontinued Medications Al Hydroxide/Mg Hydroxide 30 (ml/ Lidocaine HCl 15 ml) 0 ml PO ONETIME ONE Stop: 04/28/19 18:55 Last Admin: 04/28/19 19:29 Dose: 45 ml Famotidine (Pepcid) 20 mg IVPUSH ONETIME ONE Stop: 04/28/19 18:50 Last Admin: 04/28/19 19:30 Dose: 20 mg Lactated Ringer's (Ringers, Lactated) 1,000 mls @ 999 mls/hr IV .BOLUS ONE Stop: 04/28/19 19:50 Last Admin: 04/28/19 19:30 Dose: 999 mls/hr Potassium Chloride (Klor-Con M20) 40 meq PO ONETIME ONE Stop: 04/29/19 07:22 - Exam General: Alert, Oriented, Cooperative, No Acute Distress HEENT: Pupils Equal, Pupils Reactive, EOMI, Mucous Membr. Moist/[place] Neck: Supple Lungs: Clear to Auscultation, Normal Respiratory Effort, Decreased Breath Sounds Cardiovascular: Regular Rate, Regular Rhythm GI/Abdominal Exam: Normal Bowel Sounds, Soft, Non-Tender, No Organomegaly, No Distention, No Abnormal Bruit, Other (enlarged abdomen) (Female) Exam: Deferred Back Exam: Normal Inspection, Decreased Range of Motion Extremities: Normal Inspection, Normal Range of Motion, Non-Tender, No Pedal Edema, Normal Capillary Refill Peripheral Pulses: 2+: Dorsalis Pedis (L), Dorsalis Pedis (R) Skin: Warm, Dry, Intact Neurological: No New Focal Deficit (limited but grossly intact) Psy/Mental Status: Alert, Normal Affect, Normal Mood Sepsis Event Note - Evaluation Sepsis Screening Result: No Definite Risk - Focused Exam Vital Signs: Vital Signs Temp Pulse Resp BP Pulse Ox 04/29/19 03:33 36.3 C 85 16 102/83 97 Date Exam was Performed: 04/29/19 Time Exam was Performed: 19:00 - Problem List Review Problem List Initiated/Reviewed/Updated: Yes - Plan Plan:: 28 year old A2 at 33+4 weeks gestation with acute pancreatitis. Assessment: Acute Pancreatitis with 0 Donis's Criteria. Lipase of 1055-->2754. CRP 1.2--> 2.5. Mild Leukocytosis with WBC of 11.50--> 13.13 2/2 above. Continue to monitor. Status post cholecystectomy in 2010 GERD, Already on H2B/PPI Hypoalbuminemia with Albumin of 2.6. Dietary consult once po with meals Hypokalemia with K of 3.4. Will replete and monitor Mild Hypertriglyceridemia Plan: Continue supportive care and medical management. IV fluid for hydration, already on D51/2NS. Monitor Is/Os. DVT prophylaxis. IS as directed to prevent pneumonia. Consider low dose Dilaudid PRN for pain control. Educated patient about narcotics and its potential side effects.
[2019-04-29] MEDS: Pantoprazole 40 MG Tab.CR PO SCH (09:28)
[2019-04-29] MEDS ORDERED: NS + KCl 20mEq/L 1,000 ML IV SCH (10:45)
[2019-04-29] MEDS: HYDROmorphone 0.5 MG/0.5 ML Syringe IVPUSH PRN ×9 (10:53→23:23)
--- NOTE | 2019-04-29 10:57 | PCM.PN ---
- General Info Date of Service: 04/29/19 Admission Dx/Problem (Free Text): Patient Status Order with Admit Dx/Problem 04/28/19 17:21 Patient Status [ADT] Routine Admission Diagnosis/Problem Admission Diagnosis/Problem Acute pancreatitis Subjective Update: Patient has been having more pain and has been getting 50 mcg IV fentanyl every hour since 6 am. Her pain will get up to 10/10 and down to about 6/10 with the fentanyl. She describes her pain as constant, worst in the RUQ, goes through to the back, but also feels pain radiating down to her abdomen. Pain is worse if she moves, especially when she gets up to the bathroom. She is nauseated now after getting up to the bathroom because her pain is so severe. She has not vomited. Has not had a BM today. NST this am is reactive, no contractions noted just a few tightenings. Cincinnatus score as of this am is 0. Functional Status: Reports: Urinating Pain Score: 10 - Review of Systems General: Reports: Weakness, Fatigue HEENT: Reports: No Symptoms Pulmonary: Reports: No Symptoms, Other (hurts to take deep breaths. ) Cardiovascular: Reports: No Symptoms Gastrointestinal: Reports: Abdominal Pain, Nausea Genitourinary: Reports: No Symptoms Musculoskeletal: Reports: No Symptoms Skin: Reports: No Symptoms Neurological: Reports: No Symptoms Psychiatric: Reports: Agitation - Patient Data Vitals - Most Recent: Last Vital Signs Temp 36.4 C 04/29/19 08:22 Pulse 93 04/29/19 08:22 Resp 16 04/29/19 03:33 BP 109/67 04/29/19 08:22 Pulse Ox 97 04/29/19 08:22 Weight - Most Recent: 93.44 kg I&O - Last 24 Hours: Intake & Output 04/28/19 04/29/19 04/29/19 22:59 06:59 14:59 Intake Total 1000 1000 Output Total 750 200 Balance 1000 250 -200 Lab Results Last 24 Hours: Laboratory Results - last 24 hr 04/28/19 04/28/19 04/28/19 Range/Units 18:00 18:00 18:00 WBC 11.50 H (3.98-10.04) K/mm3 RBC 3.71 L (3.98-5.22) M/mm3 Hgb 11.4 (11.2-15.7) gm/dl Hct 34.9 (34.1-44.9) % MCV 94.1 (79.4-94.8) fl MCH 30.7 (25.6-32.2) pg MCHC 32.7 (32.2-35.5) g/dl RDW Std Deviation 44.3 (36.4-46.3) fL Plt Count 305 (182-369) K/mm3 MPV 9.3 L (9.4-12.3) fl Neut % (Auto) 73.8 H (34.0-71.1) % Lymph % (Auto) 15.8 L (19.3-51.7) % Porter % (Auto) 8.8 (4.7-12.5) % Eos % (Auto) 1.1 (0.7-5.8) Baso % (Auto) 0.2 (0.1-1.2) % Neut # (Auto) 8.48 H (1.56-6.13) K/mm3 Lymph # (Auto) 1.82 (1.18-3.74) K/mm3 Porter # (Auto) 1.01 H (0.24-0.36) K/mm3 Eos # (Auto) 0.13 (0.04-0.36) K/mm3 Baso # (Auto) 0.02 (0.01-0.08) K/mm3 Manual Slide Review Not Reportable Sodium 140 (136-145) mEq/L Potassium 3.5 (3.5-5.1) mEq/L Chloride 106 (98-107) mEq/L Carbon Dioxide 22 (21-32) mEq/L Anion Gap 15.5 H (5-15) BUN 5 L (7-18) mg/dL Creatinine 0.3 L (0.55-1.02) mg/dL Est Cr Clr Drug Dosing 241.08 mL/min Estimated GFR (MDRD) > 60 (>60) mL/min BUN/Creatinine Ratio 16.7 (14-18) Glucose 95 (74-106) mg/dL Lactic Acid (0.4-2.0) mmol/L Calcium 8.6 (8.5-10.1) mg/dL Total Bilirubin 0.4 (0.2-1.0) mg/dL AST 19 (15-37) U/L ALT 15 (14-59) U/L Alkaline Phosphatase 109 (46-116) U/L Lactate Dehydrogenase (81-234) U/L C-Reactive Protein 1.2 H* (<1.0) mg/dL Total Protein 6.6 (6.4-8.2) g/dl Albumin 2.5 L (3.4-5.0) g/dl Globulin 4.1 gm/dL Albumin/Globulin Ratio 0.6 L (1-2) Triglycerides (<150) mg/dL Cholesterol (<200) mg/dL LDL Cholesterol Direct (<100) mg/dL HDL Cholesterol (40-59) mg/dL Amylase 136 H (25-115) U/L Lipase (73-393) U/L Urine Color (Yellow) Urine Appearance (Clear) Urine pH (5.0-8.0) Ur Specific [place] (1.005-1.030) Urine Protein (Negative) Urine Glucose (UA) (Negative) Urine Ketones (Negative) Urine Occult Blood (Negative) Urine Nitrite (Negative) Urine Bilirubin (Negative) Urine Urobilinogen (0.2-1.0) Ur Leukocyte Esterase (Negative) Urine RBC (0-5) /hpf Urine WBC (0-5) /hpf Ur Squamous Epith Cells (0-5) /hpf Urine Bacteria (FEW) /hpf Urine Mucus (FEW) /hpf 04/28/19 04/28/19 04/28/19 Range/Units 18:00 19:00 23:35 WBC (3.98-10.04) K/mm3 RBC (3.98-5.22) M/mm3 Hgb (11.2-15.7) gm/dl Hct (34.1-44.9) % MCV (79.4-94.8) fl MCH (25.6-32.2) pg MCHC (32.2-35.5) g/dl RDW Std Deviation (36.4-46.3) fL Plt Count (182-369) K/mm3 MPV (9.4-12.3) fl Neut % (Auto) (34.0-71.1) % Lymph % (Auto) (19.3-51.7) % Porter % (Auto) (4.7-12.5) % Eos % (Auto) (0.7-5.8) Baso % (Auto) (0.1-1.2) % Neut # (Auto) (1.56-6.13) K/mm3 Lymph # (Auto) (1.18-3.74) K/mm3 Porter # (Auto) (0.24-0.36) K/mm3 Eos # (Auto) (0.04-0.36) K/mm3 Baso # (Auto) (0.01-0.08) K/mm3 Manual Slide Review Sodium (136-145) mEq/L Potassium (3.5-5.1) mEq/L Chloride (98-107) mEq/L Carbon Dioxide (21-32) mEq/L Anion Gap (5-15) BUN (7-18) mg/dL Creatinine (0.55-1.02) mg/dL Est Cr Clr Drug Dosing mL/min Estimated GFR (MDRD) (>60) mL/min BUN/Creatinine Ratio (14-18) Glucose (74-106) mg/dL Lactic Acid 0.7 (0.4-2.0) mmol/L Calcium (8.5-10.1) mg/dL Total Bilirubin (0.2-1.0) mg/dL AST (15-37) U/L ALT (14-59) U/L Alkaline Phosphatase (46-116) U/L Lactate Dehydrogenase (81-234) U/L C-Reactive Protein (<1.0) mg/dL Total Protein (6.4-8.2) g/dl Albumin (3.4-5.0) g/dl Globulin gm/dL Albumin/Globulin Ratio (1-2) Triglycerides (<150) mg/dL Cholesterol (<200) mg/dL LDL Cholesterol Direct (<100) mg/dL HDL Cholesterol (40-59) mg/dL Amylase (25-115) U/L Lipase 1055 H (73-393) U/L Urine Color Yellow (Yellow) Urine Appearance Clear (Clear) Urine pH 7.5 (5.0-8.0) Ur Specific [place] 1.020 (1.005-1.030) Urine Protein Negative (Negative) Urine Glucose (UA) Negative (Negative) Urine Ketones Negative (Negative) Urine Occult Blood Negative (Negative) Urine Nitrite Negative (Negative) Urine Bilirubin Negative (Negative) Urine Urobilinogen 0.2 (0.2-1.0) Ur Leukocyte Esterase Negative (Negative) Urine RBC 0-5 (0-5) /hpf Urine WBC 0-5 (0-5) /hpf Ur Squamous Epith Cells 0-5 (0-5) /hpf Urine Bacteria Moderate H (FEW) /hpf Urine Mucus Moderate H (FEW) /hpf 04/29/19 04/29/19 04/29/19 Range/Units 05:15 05:15 05:15 WBC 13.13 H (3.98-10.04) K/mm3 RBC 3.70 L (3.98-5.22) M/mm3 Hgb 11.2 (11.2-15.7) gm/dl Hct 35.2 (34.1-44.9) % MCV 95.1 H (79.4-94.8) fl MCH 30.3 (25.6-32.2) pg MCHC 31.8 L (32.2-35.5) g/dl RDW Std Deviation 44.8 (36.4-46.3) fL Plt Count 311 (182-369) K/mm3 MPV 9.9 (9.4-12.3) fl Neut % (Auto) 75.7 H (34.0-71.1) % Lymph % (Auto) 14.0 L (19.3-51.7) % Porter % (Auto) 9.1 (4.7-12.5) % Eos % (Auto) 0.8 (0.7-5.8) Baso % (Auto) 0.1 (0.1-1.2) % Neut # (Auto) 9.94 H (1.56-6.13) K/mm3 Lymph # (Auto) 1.84 (1.18-3.74) K/mm3 [place] # (Auto) 1.19 H (0.24-0.36) K/mm3 Eos # (Auto) 0.11 (0.04-0.36) K/mm3 Baso # (Auto) 0.01 (0.01-0.08) K/mm3 Manual Slide Review Sodium 138 (136-145) mEq/L Potassium 3.4 L (3.5-5.1) mEq/L Chloride 105 (98-107) mEq/L Carbon Dioxide 20 L (21-32) mEq/L Anion Gap 16.4 H (5-15) BUN 5 L (7-18) mg/dL Creatinine 0.5 L (0.55-1.02) mg/dL Est Cr Clr Drug Dosing 144.65 mL/min Estimated GFR (MDRD) > 60 (>60) mL/min BUN/Creatinine Ratio 10.0 L (14-18) Glucose 95 97 (74-106) mg/dL Lactic Acid (0.4-2.0) mmol/L Calcium 8.6 (8.5-10.1) mg/dL Total Bilirubin 0.7 (0.2-1.0) mg/dL AST 17 (15-37) U/L ALT 14 (14-59) U/L Alkaline Phosphatase 105 (46-116) U/L Lactate Dehydrogenase 147 (81-234) U/L C-Reactive Protein (<1.0) mg/dL Total Protein 6.4 (6.4-8.2) g/dl Albumin 2.5 L (3.4-5.0) g/dl Globulin 3.9 gm/dL Albumin/Globulin Ratio 0.6 L (1-2) Triglycerides 376 H (<150) mg/dL Cholesterol 178 (<200) mg/dL LDL Cholesterol Direct 79 (<100) mg/dL HDL Cholesterol 57.0 (40-59) mg/dL Amylase (25-115) U/L Lipase 2754 H (73-393) U/L Urine Color (Yellow) Urine Appearance (Clear) Urine pH (5.0-8.0) Ur Specific [place] (1.005-1.030) Urine Protein (Negative) Urine Glucose (UA) (Negative) Urine Ketones (Negative) Urine Occult Blood (Negative) Urine Nitrite (Negative) Urine Bilirubin (Negative) Urine Urobilinogen (0.2-1.0) Ur Leukocyte Esterase (Negative) Urine RBC (0-5) /hpf Urine WBC (0-5) /hpf Ur Squamous Epith Cells (0-5) /hpf Urine Bacteria (FEW) /hpf Urine Mucus (FEW) /hpf 04/29/19 Range/Units 05:15 WBC (3.98-10.04) K/mm3 RBC (3.98-5.22) M/mm3 Hgb (11.2-15.7) gm/dl Hct (34.1-44.9) % MCV (79.4-94.8) fl MCH (25.6-32.2) pg MCHC (32.2-35.5) g/dl RDW Std Deviation (36.4-46.3) fL Plt Count (182-369) K/mm3 MPV (9.4-12.3) fl Neut % (Auto) (34.0-71.1) % Lymph % (Auto) (19.3-51.7) % [place] % (Auto) (4.7-12.5) % Eos % (Auto) (0.7-5.8) Baso % (Auto) (0.1-1.2) % Neut # (Auto) (1.56-6.13) K/mm3 Lymph # (Auto) (1.18-3.74) K/mm3 [place] # (Auto) (0.24-0.36) K/mm3 Eos # (Auto) (0.04-0.36) K/mm3 Baso # (Auto) (0.01-0.08) K/mm3 Manual Slide Review Sodium (136-145) mEq/L Potassium (3.5-5.1) mEq/L Chloride (98-107) mEq/L Carbon Dioxide (21-32) mEq/L Anion Gap (5-15) BUN (7-18) mg/dL Creatinine (0.55-1.02) mg/dL Est Cr Clr Drug Dosing mL/min Estimated GFR (MDRD) (>60) mL/min BUN/Creatinine Ratio (14-18) Glucose (74-106) mg/dL Lactic Acid (0.4-2.0) mmol/L Calcium (8.5-10.1) mg/dL Total Bilirubin (0.2-1.0) mg/dL AST (15-37) U/L ALT (14-59) U/L Alkaline Phosphatase (46-116) U/L Lactate Dehydrogenase (81-234) U/L C-Reactive Protein 2.5 H* (<1.0) mg/dL Total Protein (6.4-8.2) g/dl Albumin (3.4-5.0) g/dl Globulin gm/dL Albumin/Globulin Ratio (1-2) Triglycerides (<150) mg/dL Cholesterol (<200) mg/dL LDL Cholesterol Direct (<100) mg/dL HDL Cholesterol (40-59) mg/dL Amylase (25-115) U/L Lipase (73-393) U/L Urine Color (Yellow) Urine Appearance (Clear) Urine pH (5.0-8.0) Ur Specific [place] (1.005-1.030) Urine Protein (Negative) Urine Glucose (UA) (Negative) Urine Ketones (Negative) Urine Occult Blood (Negative) Urine Nitrite (Negative) Urine Bilirubin (Negative) Urine Urobilinogen (0.2-1.0) Ur Leukocyte Esterase (Negative) Urine RBC (0-5) /hpf Urine WBC (0-5) /hpf Ur Squamous Epith Cells (0-5) /hpf Urine Bacteria (FEW) /hpf Urine Mucus (FEW) /hpf Med Orders - Current: Current Medications Famotidine (Pepcid) 20 mg IV Q12H PRN PRN Reason: Heartburn Fentanyl (Sublimaze) 50 mcg IVPUSH Q1H PRN PRN Reason: Abdominal Pain Last Admin: 04/29/19 09:26 Dose: 50 mcg Hydromorphone HCl (Dilaudid) 0.25 mg IVPUSH Q1H PRN PRN Reason: Abdominal Pain Potassium Chloride/Sodium Chloride (Normal Saline With 20 Meq Kcl) 1,000 mls @ 125 mls/hr IV ASDIRECTED [facility] Ondansetron HCl (Zofran) 4 mg IV Q4H PRN PRN Reason: Nausea/Vomiting Last Admin: 04/29/19 03:29 Dose: 4 mg Pantoprazole Sodium (Protonix) 40 mg PO DAILY [facility] Last Admin: 04/29/19 09:28 Dose: 40 mg Discontinued Medications Al Hydroxide/Mg Hydroxide 30 (ml/ Lidocaine HCl 15 ml) 0 ml PO ONETIME ONE Stop: 04/28/19 18:55 Last Admin: 04/28/19 19:29 Dose: 45 ml Famotidine (Pepcid) 20 mg IVPUSH ONETIME ONE Stop: 04/28/19 18:50 Last Admin: 04/28/19 19:30 Dose: 20 mg Fentanyl (Sublimaze) 25 mcg IVPUSH Q1H PRN PRN Reason: Abdominal Pain Last Admin: 04/29/19 01:43 Dose: 25 mcg Lactated Ringer's (Ringers, Lactated) 1,000 mls @ 999 mls/hr IV .BOLUS ONE Stop: 04/28/19 19:50 Last Admin: 04/28/19 19:30 Dose: 999 mls/hr Lactated Ringer's (Ringers, Lactated) 1,000 mls @ 200 mls/hr IV ASDIRECTED [facility] Last Admin: 04/29/19 06:06 Dose: 200 mls/hr Potassium Chloride (Klor-Con M20) 40 meq PO ONETIME ONE Stop: 04/29/19 07:22 Last Admin: 04/29/19 09:28 Dose: 40 meq - Exam General: Alert, Oriented, Severe Distress HEENT: Pupils Equal, Other (mucus membranes dry) Neck: Supple Lungs: Decreased Breath Sounds Cardiovascular: Regular Rate, Regular Rhythm GI/Abdominal Exam: Guarding, Tender (tender to palpation in RUQ and epigastric area. Mild tenderness in suprapubic area as well. ), Abnormal Bowel Sounds ( decreased bowel sounds) (Female) Exam: Fundal Height (gravid uterus, soft to palpation, fundus about 3 fingers above umbilicus) Back Exam: Normal Inspection, CVA Tenderness (R) Extremities: Non-Tender Skin: Warm, Dry, Intact Neurological: No New Focal Deficit Psy/Mental Status: Anxious Sepsis Event Note - Evaluation Sepsis Screening Result: No Definite Risk - Focused Exam Vital Signs: Vital Signs Temp Pulse Resp BP Pulse Ox 04/29/19 08:22 36.4 C 93 109/67 97 04/29/19 03:33 36.3 C 85 16 102/83 97 Date Exam was Performed: 04/29/19 Time Exam was Performed: 11:14 - Problem List & Annotations (1) Acute pancreatitis SNOMED Code(s): 205414309 Code(s): K85.90 - ACUTE PANCREATITIS WITHOUT NECROSIS OR INFECTION, UNSP Status: Acute Current Visit: Yes (2) 33 weeks gestation of SNOMED Code(s): 66995771 Code(s): Z3A.33 - 33 WEEKS GESTATION OF Status: Acute Current Visit: Yes (3) Status post cholecystectomy SNOMED Code(s): 693808554, 51139791, 044275588 Code(s): Z90.49 - ACQUIRED ABSENCE OF OTHER SPECIFIED PARTS OF DIGESTIVE TRACT Status: Acute Current Visit: Yes (4) GERD (gastroesophageal reflux disease) SNOMED Code(s): 113931969 Code(s): K21.9 - GASTRO-ESOPHAGEAL REFLUX DISEASE WITHOUT ESOPHAGITIS Status: Acute Current Visit: Yes (5) Hypokalemia SNOMED Code(s): 32559656 Code(s): E87.6 - HYPOKALEMIA Status: Acute Current Visit: Yes - Problem List Review Problem List Initiated/Reviewed/Updated: Yes - My Orders Last 24 Hours: My Active Orders 04/28/19 17:21 Non Stress Test [RC] PER UNIT ROUTINE Vital Signs [RC] PER UNIT ROUTINE Resuscitation Status Routine 04/28/19 17:45 Pantoprazole [ProTONIX] 40 mg PO DAILY 04/28/19 22:18 Consult to Physician [CONS] Urgent Famotidine [Pepcid] 20 mg IV Q12H PRN Ondansetron [Zofran] 4 mg IV Q4H PRN DVT/VTE Prophylaxis Reflex [OM.PC] Routine 04/28/19 22:19 Notify Provider [RC] PRN 04/28/19 22:21 Intake and Output [RC] Q2H 04/28/19 22:22 Antiembolic Devices [RC] .Routine VTE/DVT Education [RC] PER UNIT ROUTINE 04/28/19 22:27 Notify Provider Consults [RC] ASDIRECTED 04/28/19 Dinner Nothing Per Oral Diet [DIET] 04/29/19 03:20 fentaNYL [Sublimaze] 50 mcg IVPUSH Q1H PRN 04/29/19 09:49 Admission Status [Patient Status] [ADT] Routine 04/29/19 10:30 HYDROmorphone [Dilaudid] 0.25 mg IVPUSH Q1H PRN 04/29/19 10:34 Antiembolic Devices [RC] PER UNIT ROUTINE Incentive Spirometry [RT Incentive Spirometry] [RC] Q1HWA Sequential Compression Device [OM.PC] Routine 04/29/19 10:45 NS + KCl 20mEq/L [Normal Saline with 20 mEq KCl] 1,000 ml IV ASDIRECTED 04/30/19 05:11 CBC WITH AUTO DIFF [HEME] AM COMPREHENSIVE METABOLIC PN,CMP [CHEM] AM CRP [C-REACTIVE PROTEIN] [CHEM] AM LIPASE [CHEM] AM - Assessment Assessment:: 1. Acute pancreatitis - she is having more pain this am than she was having yesterday. Lipase has more than doubled, CRP is up to 2.5. Donis score is 0. She has been receiving 50 mcg IV fentanyl every hour since 6 am and that brings her pain down from 10/10 to 6/10. She is nauseated this am, but no vomiting. 2. Fluid status - currently IV LR at 200 ml/hr. URine output has been averaging about 100 ml/hour. Creatinine and BUN stable. 3. GERD - on IV Pepcid q 12 hour and po pantoprazole given this am. 4. Hypokalemia - given 40 mEq po this am. 5. at 33 weeks and 5 days - NST this am is reactive. No signs of labor - Plan Plan:: 28 year old A2 at 33+4 weeks gestation with acute pancreatitis, mild. Symptoms started this morning. No nausea or vomiting, but limited oral intake due to increased pain when she tries to eat or drink. GERD has been more severe lately as well. Normal , no signs of labor. Plan: Consult hospitalist, DR. Gambel to assist with medical management of acute pancreatitis. IV hydration and NPO for now. LR at 200 ml/hr. Monitor ins and outs every 2 hours and adjust IV fluid rate if needed for poor urine output. She has voided 3 times since we started IV fluids. DVT prophylaxis per protocol. Pain management - currently has mild pain, 3/10 and is not wanting any pain meds. Will order IV fentanyl as needed Repeat labs in am Will do daily NST to monitor well being and as needed if she starts feeling contractions or decreased movement. 05/09/19 Acute pancreatitis - will try Dilaudid IV for pain control and see if that will give her longer periods of relief than the fentanyl. She has not been moving, only getting up to void, so will start SCD's and IS. Repeat CMP, lipase, CBC, CRP and LDH in am. Continue NPO until lipase under 500. She is nauseated this am, will use Zofran as needed. Fluid status - will change IV to NS with 20 mEq KCl/litre and decrease rate to 125 ml/hr since urine output has been so good and she has not been vomiting. GERD - continue pepcid IV 20 mg q12 h and pantoprazole 40 mg also given this am. Hypokalemia - 40 mEq po given this am and will add KCl to her iv fluids. Recheck CMP in am. - stable, reactive NST, continue daily NST and prn if any contractions.
--- NOTE | 2019-04-29 19:20 | PCM.PN ---
- General Info Date of Service: 04/29/19 Admission Dx/Problem (Free Text): Patient Status Order with Admit Dx/Problem 04/28/19 17:21 Patient Status [ADT] Routine Admission Diagnosis/Problem Admission Diagnosis/Problem Acute pancreatitis Subjective Update: 1899: Patient has done better with Dilaudid for pain control this afternoon. Pain rating at 6/10 before Dilaudid and down to 2-3/10 after dilaudid. She does have increased pain with Dilaudid injection for about a minute and then it settles. She was given zofran IV this am when her pain was so bad and she was nauseated, and has not needed zofran since. She is finding it easier to move and actually walked in the halls this afternoon. Still has noticed increased pain just with trying to wet her mouth with a wet sponge. She was complaining of some lower abdominal pressure about 1730 and put on the monitor again. It was showing mild contractions about every 3 minutes that she wasn't really feeling and was sleeping through them. RN checked her cervix and it was posterior, difficult to reach. By 1830, those contractions had settled. NST reactive with moderate variability and accelerations, no decelerations. She has been doing her IS and no complaints of SOB and no cough and no fever. SCD' s are on. IV changed to NS with 20mEq KCl this am and rate decreased to 125 ml/ hr and still has been voiding 150-250 ml every couple of hours. Functional Status: Reports: Pain Controlled, Ambulating, Urinating - Review of Systems General: Reports: No Symptoms HEENT: Reports: Other (dry mouth) Pulmonary: Reports: No Symptoms Cardiovascular: Reports: No Symptoms Gastrointestinal: Reports: Abdominal Pain, Other (Not passing gas, but burping) Genitourinary: Reports: No Symptoms Musculoskeletal: Reports: No Symptoms Skin: Reports: No Symptoms Neurological: Reports: No Symptoms Psychiatric: Reports: No Symptoms - Patient Data Vitals - Most Recent: Last Vital Signs Temp 36.4 C 04/29/19 12:24 Pulse 100 04/29/19 12:24 Resp 16 04/29/19 12:24 BP 126/70 04/29/19 12:24 Pulse Ox 96 04/29/19 12:24 Weight - Most Recent: 93.44 kg I&O - Last 24 Hours: Intake & Output 04/29/19 04/29/19 04/29/19 06:59 14:59 22:59 Intake Total 1000 500 Output Total 750 800 350 Balance 250 -800 150 Lab Results Last 24 Hours: Laboratory Results - last 24 hr 04/28/19 04/28/19 04/28/19 Range/Units 18:00 18:00 19:00 WBC (3.98-10.04) K/mm3 RBC (3.98-5.22) M/mm3 Hgb (11.2-15.7) gm/dl Hct (34.1-44.9) % MCV (79.4-94.8) fl MCH (25.6-32.2) pg MCHC (32.2-35.5) g/dl RDW Std Deviation (36.4-46.3) fL Plt Count (182-369) K/mm3 MPV (9.4-12.3) fl Neut % (Auto) (34.0-71.1) % Lymph % (Auto) (19.3-51.7) % [place] % (Auto) (4.7-12.5) % Eos % (Auto) (0.7-5.8) Baso % (Auto) (0.1-1.2) % Neut # (Auto) (1.56-6.13) K/mm3 Lymph # (Auto) (1.18-3.74) K/mm3 [place] # (Auto) (0.24-0.36) K/mm3 Eos # (Auto) (0.04-0.36) K/mm3 Baso # (Auto) (0.01-0.08) K/mm3 Sodium (136-145) mEq/L Potassium (3.5-5.1) mEq/L Chloride (98-107) mEq/L Carbon Dioxide (21-32) mEq/L Anion Gap (5-15) BUN (7-18) mg/dL Creatinine (0.55-1.02) mg/dL Est Cr Clr Drug Dosing mL/min Estimated GFR (MDRD) (>60) mL/min BUN/Creatinine Ratio (14-18) Glucose (74-106) mg/dL Lactic Acid (0.4-2.0) mmol/L Calcium (8.5-10.1) mg/dL Total Bilirubin (0.2-1.0) mg/dL AST (15-37) U/L ALT (14-59) U/L Alkaline Phosphatase (46-116) U/L Lactate Dehydrogenase (81-234) U/L C-Reactive Protein (<1.0) mg/dL Total Protein (6.4-8.2) g/dl Albumin (3.4-5.0) g/dl Globulin gm/dL Albumin/Globulin Ratio (1-2) Triglycerides (<150) mg/dL Cholesterol (<200) mg/dL LDL Cholesterol Direct (<100) mg/dL HDL Cholesterol (40-59) mg/dL Amylase 136 H (25-115) U/L Lipase 1055 H (73-393) U/L Urine Color Yellow (Yellow) Urine Appearance Clear (Clear) Urine pH 7.5 (5.0-8.0) Ur Specific [place] 1.020 (1.005-1.030) Urine Protein Negative (Negative) Urine Glucose (UA) Negative (Negative) Urine Ketones Negative (Negative) Urine Occult Blood Negative (Negative) Urine Nitrite Negative (Negative) Urine Bilirubin Negative (Negative) Urine Urobilinogen 0.2 (0.2-1.0) Ur Leukocyte Esterase Negative (Negative) Urine RBC 0-5 (0-5) /hpf Urine WBC 0-5 (0-5) /hpf Ur Squamous Epith Cells 0-5 (0-5) /hpf Urine Bacteria Moderate H (FEW) /hpf Urine Mucus Moderate H (FEW) /hpf 04/28/19 04/29/19 04/29/19 Range/Units 23:35 05:15 05:15 WBC 13.13 H (3.98-10.04) K/mm3 RBC 3.70 L (3.98-5.22) M/mm3 Hgb 11.2 (11.2-15.7) gm/dl Hct 35.2 (34.1-44.9) % MCV 95.1 H (79.4-94.8) fl MCH 30.3 (25.6-32.2) pg MCHC 31.8 L (32.2-35.5) g/dl RDW Std Deviation 44.8 (36.4-46.3) fL Plt Count 311 (182-369) K/mm3 MPV 9.9 (9.4-12.3) fl Neut % (Auto) 75.7 H (34.0-71.1) % Lymph % (Auto) 14.0 L (19.3-51.7) % [place] % (Auto) 9.1 (4.7-12.5) % Eos % (Auto) 0.8 (0.7-5.8) Baso % (Auto) 0.1 (0.1-1.2) % Neut # (Auto) 9.94 H (1.56-6.13) K/mm3 Lymph # (Auto) 1.84 (1.18-3.74) K/mm3 [place] # (Auto) 1.19 H (0.24-0.36) K/mm3 Eos # (Auto) 0.11 (0.04-0.36) K/mm3 Baso # (Auto) 0.01 (0.01-0.08) K/mm3 Sodium 138 (136-145) mEq/L Potassium 3.4 L (3.5-5.1) mEq/L Chloride 105 (98-107) mEq/L Carbon Dioxide 20 L (21-32) mEq/L Anion Gap 16.4 H (5-15) BUN 5 L (7-18) mg/dL Creatinine 0.5 L (0.55-1.02) mg/dL Est Cr Clr Drug Dosing 144.65 mL/min Estimated GFR (MDRD) > 60 (>60) mL/min BUN/Creatinine Ratio 10.0 L (14-18) Glucose 95 (74-106) mg/dL Lactic Acid 0.7 (0.4-2.0) mmol/L Calcium 8.6 (8.5-10.1) mg/dL Total Bilirubin 0.7 (0.2-1.0) mg/dL AST 17 (15-37) U/L ALT 14 (14-59) U/L Alkaline Phosphatase 105 (46-116) U/L Lactate Dehydrogenase 147 (81-234) U/L C-Reactive Protein (<1.0) mg/dL Total Protein 6.4 (6.4-8.2) g/dl Albumin 2.5 L (3.4-5.0) g/dl Globulin 3.9 gm/dL Albumin/Globulin Ratio 0.6 L (1-2) Triglycerides 376 H (<150) mg/dL Cholesterol 178 (<200) mg/dL LDL Cholesterol Direct 79 (<100) mg/dL HDL Cholesterol 57.0 (40-59) mg/dL Amylase (25-115) U/L Lipase 2754 H (73-393) U/L Urine Color (Yellow) Urine Appearance (Clear) Urine pH (5.0-8.0) Ur Specific [place] (1.005-1.030) Urine Protein (Negative) Urine Glucose (UA) (Negative) Urine Ketones (Negative) Urine Occult Blood (Negative) Urine Nitrite (Negative) Urine Bilirubin (Negative) Urine Urobilinogen (0.2-1.0) Ur Leukocyte Esterase (Negative) Urine RBC (0-5) /hpf Urine WBC (0-5) /hpf Ur Squamous Epith Cells (0-5) /hpf Urine Bacteria (FEW) /hpf Urine Mucus (FEW) /hpf 04/29/19 04/29/19 Range/Units 05:15 05:15 WBC (3.98-10.04) K/mm3 RBC (3.98-5.22) M/mm3 Hgb (11.2-15.7) gm/dl Hct (34.1-44.9) % MCV (79.4-94.8) fl MCH (25.6-32.2) pg MCHC (32.2-35.5) g/dl RDW Std Deviation (36.4-46.3) fL Plt Count (182-369) K/mm3 MPV (9.4-12.3) fl Neut % (Auto) (34.0-71.1) % Lymph % (Auto) (19.3-51.7) % [place] % (Auto) (4.7-12.5) % Eos % (Auto) (0.7-5.8) Baso % (Auto) (0.1-1.2) % Neut # (Auto) (1.56-6.13) K/mm3 Lymph # (Auto) (1.18-3.74) K/mm3 [place] # (Auto) (0.24-0.36) K/mm3 Eos # (Auto) (0.04-0.36) K/mm3 Baso # (Auto) (0.01-0.08) K/mm3 Sodium (136-145) mEq/L Potassium (3.5-5.1) mEq/L Chloride (98-107) mEq/L Carbon Dioxide (21-32) mEq/L Anion Gap (5-15) BUN (7-18) mg/dL Creatinine (0.55-1.02) mg/dL Est Cr Clr Drug Dosing mL/min Estimated GFR (MDRD) (>60) mL/min BUN/Creatinine Ratio (14-18) Glucose 97 (74-106) mg/dL Lactic Acid (0.4-2.0) mmol/L Calcium (8.5-10.1) mg/dL Total Bilirubin (0.2-1.0) mg/dL AST (15-37) U/L ALT (14-59) U/L Alkaline Phosphatase (46-116) U/L Lactate Dehydrogenase (81-234) U/L C-Reactive Protein 2.5 H* (<1.0) mg/dL Total Protein (6.4-8.2) g/dl Albumin (3.4-5.0) g/dl Globulin gm/dL Albumin/Globulin Ratio (1-2) Triglycerides (<150) mg/dL Cholesterol (<200) mg/dL LDL Cholesterol Direct (<100) mg/dL HDL Cholesterol (40-59) mg/dL Amylase (25-115) U/L Lipase (73-393) U/L Urine Color (Yellow) Urine Appearance (Clear) Urine pH (5.0-8.0) Ur Specific [place] (1.005-1.030) Urine Protein (Negative) Urine Glucose (UA) (Negative) Urine Ketones (Negative) Urine Occult Blood (Negative) Urine Nitrite (Negative) Urine Bilirubin (Negative) Urine Urobilinogen (0.2-1.0) Ur Leukocyte Esterase (Negative) Urine RBC (0-5) /hpf Urine WBC (0-5) /hpf Ur Squamous Epith Cells (0-5) /hpf Urine Bacteria (FEW) /hpf Urine Mucus (FEW) /hpf Med Orders - Current: Current Medications Famotidine (Pepcid) 20 mg IV Q12H PRN PRN Reason: Heartburn Fentanyl (Sublimaze) 50 mcg IVPUSH Q1H PRN PRN Reason: Abdominal Pain Last Admin: 04/29/19 09:26 Dose: 50 mcg Hydromorphone HCl (Dilaudid) 0.25 mg IVPUSH Q1H PRN PRN Reason: Abdominal Pain Last Admin: 04/29/19 18:22 Dose: 0.25 mg Potassium Chloride/Dextrose/Sod Cl (D5 1/2 Ns W/ 20 Meq/L Kcl) 1,000 mls @ 100 [facility]ls[facility] Ondansetron HCl (Zofran) 4 mg IV Q4H PRN PRN Reason: Nausea/Vomiting Last Admin: 04/29/19 11:06 Dose: 4 mg Pantoprazole Sodium (Protonix) 40 mg PO DAILY [facility] Last Admin: 04/29/19 09:28 Dose: 40 mg Discontinued Medications Al Hydroxide/Mg Hydroxide 30 (ml/ Lidocaine HCl 15 ml) 0 ml PO ONETIME ONE Stop: 04/28/19 18:55 Last Admin: 04/28/19 19:29 Dose: 45 ml Famotidine (Pepcid) 20 mg IVPUSH ONETIME ONE Stop: 04/28/19 18:50 Last Admin: 04/28/19 19:30 Dose: 20 mg Fentanyl (Sublimaze) 25 mcg IVPUSH Q1H PRN PRN Reason: Abdominal Pain Last Admin: 04/29/19 01:43 Dose: 25 mcg Lactated Ringer's (Ringers, Lactated) 1,000 mls @ 999 mls/hr IV .BOLUS ONE Stop: 04/28/19 19:50 Last Admin: 04/28/19 19:30 Dose: 999 mls/hr Lactated Ringer's (Ringers, Lactated) 1,000 mls @ 200 mls/hr IV ASDIRECTED [facility] Last Admin: 04/29/19 06:06 Dose: 200 mls/hr Potassium Chloride/Sodium Chloride (Normal Saline With 20 Meq Kcl) 1,000 mls @ 125 mls/hr IV ASDIRECTED [facility] Last Admin: 04/29/19 10:57 Dose: 125 mls/hr Potassium Chloride (Klor-Con M20) 40 meq PO ONETIME ONE Stop: 04/29/19 07:22 Last Admin: 04/29/19 09:28 Dose: 40 meq - Exam General: Alert, Oriented, Mild Distress HEENT: Pupils Equal, EOMI, Other (lips dry) Neck: Supple Lungs: Normal Respiratory Effort, Decreased Breath Sounds (Decreased to bases, no crackles. Still pain in abdomen with deep inspiration.) Cardiovascular: Regular Rate, Regular Rhythm GI/Abdominal Exam: Soft, Guarding, Tender (Tender in RUQ and epigastrium and right flank) (Female) Exam: Other (Gravid uterus, soft to palpation) Back Exam: Normal Inspection, CVA Tenderness (R) Extremities: Normal Inspection, Non-Tender, No Pedal Edema, Other (SCD's on) Skin: Warm, Dry, Intact Neurological: No New Focal Deficit Psy/Mental Status: Alert, Normal Affect, Normal Mood Sepsis Event Note - Evaluation Sepsis Screening Result: No Definite Risk - Focused Exam Vital Signs: Vital Signs Temp Pulse Resp BP Pulse Ox 04/29/19 12:24 36.4 C 100 16 126/70 96 04/29/19 08:22 36.4 C 93 109/67 97 Date Exam was Performed: 04/29/19 Time Exam was Performed: 19:14 - Problem List & Annotations (1) Acute pancreatitis SNOMED Code(s): 929999867 Code(s): K85.90 - ACUTE PANCREATITIS WITHOUT NECROSIS OR INFECTION, UNSP Status: Acute Current Visit: Yes (2) 33 weeks gestation of SNOMED Code(s): 29798663 Code(s): Z3A.33 - 33 WEEKS GESTATION OF Status: Acute Current Visit: Yes (3) Status post cholecystectomy SNOMED Code(s): 656474001, 17521153, 081221276 Code(s): Z90.49 - ACQUIRED ABSENCE OF OTHER SPECIFIED PARTS OF DIGESTIVE TRACT Status: Acute Current Visit: Yes (4) GERD (gastroesophageal reflux disease) SNOMED Code(s): 988438820 Code(s): K21.9 - GASTRO-ESOPHAGEAL REFLUX DISEASE WITHOUT ESOPHAGITIS Status: Acute Current Visit: Yes (5) Hypokalemia SNOMED Code(s): 47902369 Code(s): E87.6 - HYPOKALEMIA Status: Acute Current Visit: Yes - Problem List Review Problem List Initiated/Reviewed/Updated: Yes - My Orders Last 24 Hours: My Active Orders 04/28/19 22:18 Consult to Physician [CONS] Urgent Famotidine [Pepcid] 20 mg IV Q12H PRN Ondansetron [Zofran] 4 mg IV Q4H PRN DVT/VTE Prophylaxis Reflex [OM.PC] Routine 04/28/19 22:19 Notify Provider [RC] PRN 04/28/19 22:21 Intake and Output [RC] Q2H 04/28/19 22:22 Antiembolic Devices [RC] .Routine VTE/DVT Education [RC] PER UNIT ROUTINE 04/28/19 22:27 Notify Provider Consults [RC] ASDIRECTED 04/29/19 03:20 fentaNYL [Sublimaze] 50 mcg IVPUSH Q1H PRN 04/29/19 09:49 Admission Status [Patient Status] [ADT] Routine 04/29/19 10:30 HYDROmorphone [Dilaudid] 0.25 mg IVPUSH Q1H PRN 04/29/19 10:34 Antiembolic Devices [RC] PER UNIT ROUTINE Incentive Spirometry [RT Incentive Spirometry] [RC] Q1HWA Sequential Compression Device [OM.PC] Routine 04/29/19 19:00 Dextrose 5%-1/2 Normal Saline with KCl 20 mEq @ 100 mL/Hr (1000 mL) D5 1/2 NS w / 20 mEq/L KCl 1,000 ml IV ASDIRECTED 04/30/19 05:11 CBC WITH AUTO DIFF [HEME] AM COMPREHENSIVE METABOLIC PN,CMP [CHEM] AM CRP [C-REACTIVE PROTEIN] [CHEM] AM LIPASE [CHEM] AM - Assessment Assessment:: 1900: Assessment and plan 1. Acute pancreatitis - Doing better with IV dilaudid for pain control. Using 0.25 mg about every 1.5 hours and pain will go from 6/10 to 2-3/10. She was nauseated this am, but no vomiting. 1 dose zofran given, none since then and nausea has not returned. Will continue Dilaudid and keep NPO. Repeat labs in am. 2. Fluid status - currently IV NS with 20mEq KCl at 125 ml/hr. Still good UO, 150-250 ml every couple hours. Creatinine and BUN stable. Will change to D5 1/2 NS with 20mEq KCl and decrease to 100 ml/hr and continue to monitor urine output. BP and pulse stable. 3. GERD - on IV Pepcid q 12 hour and po pantoprazole given this am. 4. Hypokalemia - given 40 mEq po this am. KCl in IV fluid since this am. 5. at 33 weeks and 5 days - NST this am is reactive. Had some mild cramping and mild tightenings every 3 mins this evening on monitor that have resolved. Cervix is posterior and hard to reach. Will repeat NST in am and as needed. Jessica Harris MD - Plan Plan:: 28 year old A2 at 33+4 weeks gestation with acute pancreatitis. Assessment: Acute Pancreatitis with 0 Donis's Criteria. Lipase of 1055-->2754. CRP 1.2--> 2.5. Mild Leukocytosis with WBC of 11.50--> 13.13 2/2 above. Continue to monitor. Status post cholecystectomy in 2010 GERD, Already on H2B/PPI Hypoalbuminemia with Albumin of 2.6. Dietary consult once po with meals Hypokalemia with K of 3.4. Will replete and monitor Mild Hypertriglyceridemia Plan: Continue supportive care and medical management. IV fluid for hydration, already on D51/2NS. Monitor Is/Os. DVT prophylaxis. IS as directed to prevent pneumonia. Consider low dose Dilaudid PRN for pain control. Educated patient about narcotics and its potential side effects.
[2019-04-29] MEDS: D5 1/2 NS w/ 20 mEq/L KCl 1,000 ML IV SCH (19:40)
[2019-04-30] MEDS: HYDROmorphone 0.5 MG/0.5 ML Syringe IVPUSH PRN ×10 (02:04→22:37)
[2019-04-30] MEDS: Famotidine 20 MG/2 ML SDV IV PRN (05:18)
[2019-04-30] MEDS: D5 1/2 NS w/ 20 mEq/L KCl 1,000 ML IV SCH ×2 (05:28→16:57)
[2019-04-30] MEDS: Pantoprazole 40 MG Tab.CR PO SCH (10:25)
--- NOTE | 2019-04-30 11:44 | PCM.CONSN ---
- General Info Date of Service: 04/30/19 Admission Dx/Problem (Free Text): Patient Status Order with Admit Dx/Problem 04/28/19 17:21 Patient Status [ADT] Routine Admission Diagnosis/Problem Admission Diagnosis/Problem Acute pancreatitis Subjective Update: 1899: Patient has done better with Dilaudid for pain control this afternoon. Pain rating at 6/10 before Dilaudid and down to 2-3/10 after dilaudid. She does have increased pain with Dilaudid injection for about a minute and then it settles. She was given zofran IV this am when her pain was so bad and she was nauseated, and has not needed zofran since. She is finding it easier to move and actually walked in the halls this afternoon. Still has noticed increased pain just with trying to wet her mouth with a wet sponge. She was complaining of some lower abdominal pressure about 1730 and put on the monitor again. It was showing mild contractions about every 3 minutes that she wasn't really feeling and was sleeping through them. RN checked her cervix and it was posterior, difficult to reach. By 1830, those contractions had settled. NST reactive with moderate variability and accelerations, no decelerations. She has been doing her IS and no complaints of SOB and no cough and no fever. SCD' s are on. IV changed to NS with 20mEq KCl this am and rate decreased to 125 ml/ hr and still has been voiding 150-250 ml every couple of hours. Functional Status: Reports: Pain Controlled, Ambulating, Urinating - Review of Systems General: Denies: Fever, Chills HEENT: Reports: No Symptoms Pulmonary: Denies: Shortness of Breath Cardiovascular: Denies: Chest Pain, Dyspnea on Exertion, Lightheadedness Gastrointestinal: Denies: Abdominal Pain, Nausea, Vomiting Genitourinary: Reports: No Symptoms Musculoskeletal: Reports: No Symptoms Skin: Denies: Cyanosis, Pallor, Diaphoresis, Rash Neurological: Denies: Numbness, Weakness, Gait Disturbance Psychiatric: Denies: Depression, Anxiety, Agitation Systems Review Comment:: She had an uneventful night. She feels much better today than yesterday. She remains afebrile w/o nausea and vomiting. She got up and took a shower this morning. So far she had 5 small doses of Dilaudid overnight. She is mainly ice chips for now. - Patient Data Vitals - Most Recent: Last Vital Signs Temp 36.7 C 04/30/19 04:45 Pulse 104 H 04/30/19 04:45 Resp 16 04/30/19 04:45 BP 124/72 04/30/19 04:45 Pulse Ox 96 04/30/19 04:45 Weight - Most Recent: 91.314 kg I&O - Last 24 Hours: Intake & Output 04/29/19 04/30/19 04/30/19 22:59 06:59 14:59 Intake Total 1475 45 1000 Output Total 675 400 75 Balance 800 -355 925 Lab Results Last 24 Hours: Laboratory Results - last 24 hr 04/30/19 04/30/19 Range/Units 05:15 05:15 WBC 18.10 H (3.98-10.04) K/mm3 RBC 4.04 (3.98-5.22) M/mm3 Hgb 12.6 (11.2-15.7) gm/dl Hct 38.4 (34.1-44.9) % MCV 95.0 H (79.4-94.8) fl MCH 31.2 (25.6-32.2) pg MCHC 32.8 (32.2-35.5) g/dl RDW Std Deviation 45.6 (36.4-46.3) fL Plt Count 323 (182-369) K/mm3 MPV 9.7 (9.4-12.3) fl Neut % (Auto) 83.3 H (34.0-71.1) % Lymph % (Auto) 7.1 L (19.3-51.7) % [place] % (Auto) 8.9 (4.7-12.5) % Eos % (Auto) 0.4 L (0.7-5.8) Baso % (Auto) 0.1 (0.1-1.2) % Neut # (Auto) 15.08 H (1.56-6.13) K/mm3 Lymph # (Auto) 1.28 (1.18-3.74) K/mm3 [place] # (Auto) 1.61 H (0.24-0.36) K/mm3 Eos # (Auto) 0.08 (0.04-0.36) K/mm3 Baso # (Auto) 0.01 (0.01-0.08) K/mm3 Manual Slide Review Abnormal smear Sodium 136 (136-145) mEq/L Potassium 4.1 (3.5-5.1) mEq/L Chloride 105 (98-107) mEq/L Carbon Dioxide 19 L (21-32) mEq/L Anion Gap 16.1 H (5-15) BUN 5 L (7-18) mg/dL Creatinine 0.6 (0.55-1.02) mg/dL Est Cr Clr Drug Dosing 120.54 mL/min Estimated GFR (MDRD) > 60 (>60) mL/min BUN/Creatinine Ratio 8.3 L (14-18) Glucose 121 H (74-106) mg/dL Calcium 8.7 (8.5-10.1) mg/dL Total Bilirubin 1.5 H (0.2-1.0) mg/dL AST 22 (15-37) U/L ALT 15 (14-59) U/L Alkaline Phosphatase 118 H (46-116) U/L C-Reactive Protein 16.0 H* (<1.0) mg/dL Total Protein 6.9 (6.4-8.2) g/dl Albumin 2.6 L (3.4-5.0) g/dl Globulin 4.3 gm/dL Albumin/Globulin Ratio 0.6 L (1-2) Lipase 5594 H (73-393) U/L Med Orders - Current: Current Medications Famotidine (Pepcid) 20 mg IV Q12H PRN PRN Reason: Heartburn Last Admin: 04/30/19 05:18 Dose: 20 mg Fentanyl (Sublimaze) 50 mcg IVPUSH Q1H PRN PRN Reason: Abdominal Pain Last Admin: 04/29/19 09:26 Dose: 50 mcg Hydromorphone HCl (Dilaudid) 0.25 mg IVPUSH Q1H PRN PRN Reason: Abdominal Pain Last Admin: 04/30/19 10:24 Dose: 0.25 mg Potassium Chloride/Dextrose/Sod Cl (D5 1/2 Ns W/ 20 Meq/L Kcl) 1,000 mls @ 100 mls/hr IV ASDIRECTED [facility] Last Admin: 04/30/19 05:28 Dose: 100 mls/hr Ondansetron HCl (Zofran) 4 mg IV Q4H PRN PRN Reason: Nausea/Vomiting Last Admin: 04/29/19 11:06 Dose: 4 mg Pantoprazole Sodium (Protonix) 40 mg PO DAILY [facility] Last Admin: 04/30/19 10:25 Dose: 40 mg Discontinued Medications Al Hydroxide/Mg Hydroxide 30 (ml/ Lidocaine HCl 15 ml) 0 ml PO ONETIME ONE Stop: 04/28/19 18:55 Last Admin: 04/28/19 19:29 Dose: 45 ml Famotidine (Pepcid) 20 mg IVPUSH ONETIME ONE Stop: 04/28/19 18:50 Last Admin: 04/28/19 19:30 Dose: 20 mg Fentanyl (Sublimaze) 25 mcg IVPUSH Q1H PRN PRN Reason: Abdominal Pain Last Admin: 04/29/19 01:43 Dose: 25 mcg Lactated Ringer's (Ringers, Lactated) 1,000 mls @ 999 mls/hr IV .BOLUS ONE Stop: 04/28/19 19:50 Last Admin: 04/28/19 19:30 Dose: 999 mls/hr Lactated Ringer's (Ringers, Lactated) 1,000 mls @ 200 mls/hr IV ASDIRECTED [facility] Last Admin: 04/29/19 06:06 Dose: 200 mls/hr Potassium Chloride/Sodium Chloride (Normal Saline With 20 Meq Kcl) 1,000 mls @ 125 mls/hr IV ASDIRECTED [facility] Last Admin: 04/29/19 10:57 Dose: 125 mls/hr Potassium Chloride (Klor-Con M20) 40 meq PO ONETIME ONE Stop: 04/29/19 07:22 Last Admin: 04/29/19 09:28 Dose: 40 meq - Exam General: Alert, Oriented, Cooperative HEENT: Pupils Equal, EOMI, Mucous Membr. Moist/[place] Neck: Supple Lungs: Clear to Auscultation, Normal Respiratory Effort, Decreased Breath Sounds Cardiovascular: Regular Rate, Regular Rhythm GI/Abdominal Exam: Normal Bowel Sounds, Soft, Non-Tender, No Organomegaly, No Distention, No Abnormal Bruit (Female) Exam: Deferred Back Exam: Normal Inspection, Decreased Range of Motion Extremities: Normal Inspection, Normal Range of Motion, Non-Tender, No Pedal Edema, Normal Capillary Refill Peripheral Pulses: 2+: Dorsalis Pedis (L), Dorsalis Pedis (R) Skin: Warm, Dry, Intact Neurological: No New Focal Deficit Psy/Mental Status: Alert, Normal Affect, Normal Mood Sepsis Event Note - Evaluation Sepsis Screening Result: No Definite Risk - Focused Exam Vital Signs: Vital Signs Temp Pulse Resp BP Pulse Ox 04/30/19 04:45 36.7 C 104 H 16 124/72 96 Date Exam was Performed: 05/01/19 Time Exam was Performed: 00:02 Consult PN Assessment/Plan Procedures: Procedures ASSAY OF FERRITIN (01/08/19) ASSAY OF IRON (01/08/19) ASSAY THYROID STIM HORMONE (12/26/18) BLOOD TYPING SEROLOGIC ABO (10/09/18) BLOOD TYPING SEROLOGIC RH(D) (10/09/18) CHORIONIC GONADOTROPIN TEST (10/09/18) COMPLETE CBC W/AUTO DIFF WBC (03/18/19) GLUCOSE TEST (03/18/19) HEPATITIS C AB TEST (12/26/18) HIV-1 AG W/HIV-1 & HIV-2 AB (12/26/18) METABOLIC PANEL TOTAL CA (01/08/19) OB US >/= 14 WKS SNGL FETUS (02/05/19) RBC ANTIBODY SCREEN (10/09/18) ROUTINE VENIPUNCTURE (03/18/19) SMEAR WET [place] SALINE/INK (12/29/18) SYPHILIS TEST NON-TREP QUAL (03/18/19) TRICHOMONAS ASSAY W/OPTIC (12/29/18) URINALYSIS AUTO W/O SCOPE (12/26/18) URINE CULTURE/COLONY COUNT (12/26/18) VARICELLA-ZOSTER ANTIBODY (12/26/18) Problem List Initiated/Reviewed/Updated: Yes My Orders Last 24 Hours: My Active Orders 04/30/19 10:55 RESPIRATORY PANEL PCR [MREF] Urgent 04/30/19 11:36 Ang Abdomen wo Cont [MR] Routine Plan: 28 year old A2 at 33+4 weeks gestation with acute pancreatitis. Assessment: Acute Pancreatitis with 0 Culbertson's Criteria. No nauseas of vomiting. Lipase of 1055-->2754-->5597 and CRP of 1.2-->2.5-->16. Leukocytosis with WBC of 11.50-->13.13-->18.10. 2/2 above. Continue to monitor. Status post cholecystectomy in 2010 GERD, Already on H2B/PPI Hypoalbuminemia with Albumin of 2.6. Dietary consult once po with meals S/p Hypokalemia with K of 3.4-->4.1. Mild Hypertriglyceridemia Patient looks clinically better than her labs this morning. I discussed her case with Dr. Red and he agreed MRCP w/o Gadolinium. I then informed Dr. Rendon about the planned imaging study and he okayed it. Plan: Patient remains afebrile since admission. Hence, I would not recommend antibiotic even with worsening CRP and WBC levels. Continue supportive care and medical management. DVT/GI prophylaxis. IS as directed to prevent pneumonia and encourage to ambulate as tolerated. Will updated Dr. Harris when she gets back in town this afternoon.
--- NOTE | 2019-04-30 12:56 | PCM.PN ---
- General Info Date of Service: 04/30/19 Admission Dx/Problem (Free Text): Patient Status Order with Admit Dx/Problem 04/28/19 17:21 Patient Status [ADT] Routine Admission Diagnosis/Problem Admission Diagnosis/Problem Acute pancreatitis Subjective Update: Patient reports that she is doing better today than she was last evening. Reports that her pain has improved significantly since last evening. She does continue to have epigastric pain that will come back about every 2-3 hours where yesterday it was getting worse about every hour. She is continuing to use IV Dilaudid 0.25 mg every 2-3 hours to control her pain. She reports that her pain will be about a 5-6/10 prior to taking the Dilaudid but will go down to a 1-2/10 after treatment. She reports that her nausea has improved and that she does not have any significant nausea at this time. Has not had a bowel movement in the last 1.5 days but has not had much to eat during this timeframe. Denies any fevers. Denies any difficulty with breathing or shortness of breath. Reports good movement. Reports some occasional cramping and contractions but they are very infrequent. She denies any vaginal bleeding or leaking of fluid. Pain Score: 1 - Review of Systems General: Reports: Malaise. Denies: Fever, Weakness, Fatigue Pulmonary: Denies: Shortness of Breath, Pleuritic Chest Pain Cardiovascular: Denies: Chest Pain, Palpitations Gastrointestinal: Reports: Abdominal Pain. Denies: Constipation, Diarrhea, Nausea, Vomiting Genitourinary: Denies: Dysuria, Frequency, Burning, Pain, Urgency Skin: Denies: Rash - Patient Data Vitals - Most Recent: Last Vital Signs Temp 36.7 C 04/30/19 04:45 Pulse 104 H 04/30/19 04:45 Resp 16 04/30/19 04:45 BP 124/72 04/30/19 04:45 Pulse Ox 96 04/30/19 04:45 Weight - Most Recent: 91.314 kg I&O - Last 24 Hours: Intake & Output 04/29/19 04/30/19 04/30/19 22:59 06:59 14:59 Intake Total 1475 45 1000 Output Total 675 400 75 Balance 800 -355 925 Lab Results Last 24 Hours: Laboratory Results - last 24 hr 04/30/19 04/30/19 Range/Units 05:15 05:15 WBC 18.10 H (3.98-10.04) K/mm3 RBC 4.04 (3.98-5.22) M/mm3 Hgb 12.6 (11.2-15.7) gm/dl Hct 38.4 (34.1-44.9) % MCV 95.0 H (79.4-94.8) fl MCH 31.2 (25.6-32.2) pg MCHC 32.8 (32.2-35.5) g/dl RDW Std Deviation 45.6 (36.4-46.3) fL Plt Count 323 (182-369) K/mm3 MPV 9.7 (9.4-12.3) fl Neut % (Auto) 83.3 H (34.0-71.1) % Lymph % (Auto) 7.1 L (19.3-51.7) % [place] % (Auto) 8.9 (4.7-12.5) % Eos % (Auto) 0.4 L (0.7-5.8) Baso % (Auto) 0.1 (0.1-1.2) % Neut # (Auto) 15.08 H (1.56-6.13) K/mm3 Lymph # (Auto) 1.28 (1.18-3.74) K/mm3 [place] # (Auto) 1.61 H (0.24-0.36) K/mm3 Eos # (Auto) 0.08 (0.04-0.36) K/mm3 Baso # (Auto) 0.01 (0.01-0.08) K/mm3 Manual Slide Review Abnormal smear Sodium 136 (136-145) mEq/L Potassium 4.1 (3.5-5.1) mEq/L Chloride 105 (98-107) mEq/L Carbon Dioxide 19 L (21-32) mEq/L Anion Gap 16.1 H (5-15) BUN 5 L (7-18) mg/dL Creatinine 0.6 (0.55-1.02) mg/dL Est Cr Clr Drug Dosing 120.54 mL/min Estimated GFR (MDRD) > 60 (>60) mL/min BUN/Creatinine Ratio 8.3 L (14-18) Glucose 121 H (74-106) mg/dL Calcium 8.7 (8.5-10.1) mg/dL Total Bilirubin 1.5 H (0.2-1.0) mg/dL AST 22 (15-37) U/L ALT 15 (14-59) U/L Alkaline Phosphatase 118 H (46-116) U/L C-Reactive Protein 16.0 H* (<1.0) mg/dL Total Protein 6.9 (6.4-8.2) g/dl Albumin 2.6 L (3.4-5.0) g/dl Globulin 4.3 gm/dL Albumin/Globulin Ratio 0.6 L (1-2) Lipase 5594 H (73-393) U/L Med Orders - Current: Current Medications Famotidine (Pepcid) 20 mg IV Q12H PRN PRN Reason: Heartburn Last Admin: 04/30/19 05:18 Dose: 20 mg Fentanyl (Sublimaze) 50 mcg IVPUSH Q1H PRN PRN Reason: Abdominal Pain Last Admin: 04/29/19 09:26 Dose: 50 mcg Hydromorphone HCl (Dilaudid) 0.25 mg IVPUSH Q1H PRN PRN Reason: Abdominal Pain Last Admin: 04/30/19 12:19 Dose: 0.25 mg Potassium Chloride/Dextrose/Sod Cl (D5 1/2 Ns W/ 20 Meq/L Kcl) 1,000 mls @ 100 mls/hr IV ASDIRECTED [facility] Last Admin: 04/30/19 05:28 Dose: 100 mls/hr Ondansetron HCl (Zofran) 4 mg IV Q4H PRN PRN Reason: Nausea/Vomiting Last Admin: 04/29/19 11:06 Dose: 4 mg Pantoprazole Sodium (Protonix) 40 mg PO DAILY [facility] Last Admin: 04/30/19 10:25 Dose: 40 mg Discontinued Medications Al Hydroxide/Mg Hydroxide 30 (ml/ Lidocaine HCl 15 ml) 0 ml PO ONETIME ONE Stop: 04/28/19 18:55 Last Admin: 04/28/19 19:29 Dose: 45 ml Famotidine (Pepcid) 20 mg IVPUSH ONETIME ONE Stop: 04/28/19 18:50 Last Admin: 04/28/19 19:30 Dose: 20 mg Fentanyl (Sublimaze) 25 mcg IVPUSH Q1H PRN PRN Reason: Abdominal Pain Last Admin: 04/29/19 01:43 Dose: 25 mcg Lactated Ringer's (Ringers, Lactated) 1,000 mls @ 999 mls/hr IV .BOLUS ONE Stop: 04/28/19 19:50 Last Admin: 04/28/19 19:30 Dose: 999 mls/hr Lactated Ringer's (Ringers, Lactated) 1,000 mls @ 200 mls/hr IV ASDIRECTED [facility] Last Admin: 04/29/19 06:06 Dose: 200 mls/hr Potassium Chloride/Sodium Chloride (Normal Saline With 20 Meq Kcl) 1,000 mls @ 125 mls/hr IV ASDIRECTED [facility] Last Admin: 04/29/19 10:57 Dose: 125 mls/hr Potassium Chloride (Klor-Con M20) 40 meq PO ONETIME ONE Stop: 04/29/19 07:22 Last Admin: 04/29/19 09:28 Dose: 40 meq - Exam General: Alert, Oriented HEENT: EOMI Neck: Supple, Trachea Midline Lungs: Clear to Auscultation, Normal Respiratory Effort Cardiovascular: Regular Rhythm, Tachycardia GI/Abdominal Exam: Soft, No Distention, Tender (Mild epigastric tenderness with deep palpation), Other (Gravid) Extremities: No Pedal Edema Skin: Warm, Dry, Intact Psy/Mental Status: Alert, Normal Affect, Normal Mood Sepsis Event Note - Evaluation Sepsis Screening Result: No Definite Risk - Focused Exam Vital Signs: Vital Signs Temp Pulse Resp BP Pulse Ox 04/30/19 04:45 36.7 C 104 H 16 124/72 96 Date Exam was Performed: 04/30/19 Time Exam was Performed: 12:57 - Problem List & Annotations (1) 33 weeks gestation of SNOMED Code(s): 59486392 Code(s): Z3A.33 - 33 WEEKS GESTATION OF Status: Acute Current Visit: Yes (2) Acute pancreatitis SNOMED Code(s): 925727723 Code(s): K85.90 - ACUTE PANCREATITIS WITHOUT NECROSIS OR INFECTION, UNSP Status: Acute Current Visit: Yes (3) GERD (gastroesophageal reflux disease) SNOMED Code(s): 682253157 Code(s): K21.9 - GASTRO-ESOPHAGEAL REFLUX DISEASE WITHOUT ESOPHAGITIS Status: Acute Current Visit: Yes - Problem List Review Problem List Initiated/Reviewed/Updated: Yes - Assessment Assessment:: Assessment and plan 1. Acute pancreatitis - Doing better with IV dilaudid for pain control. Using 0.25 mg about every 2-3 hours and pain will go from 5/10 to 1-2/10. Nausea has improved at this time. Continue Zofran as needed for nausea that may develop. Will continue Dilaudid and keep NPO. Repeat labs in am. Lipase increased to 5500 this morning and on discussion with Dr. Spence he was recommending to have MRCP to further evaluate for possible obstruction at the sphincter of Oddi. Discussed that this is a safe procedure to perform during as there is no radiation that is used. Recommended to avoid use of gadolinium during the procedure unless absolutely necessary as there has been limited data on use of the contrast in . 2. Fluid status -continue IV D5 1/2NS with 20mEq KCl at 100 ml/hr. Continues to have good urine output with 50 to 100 mL/h. Creatinine and BUN stable. Will change to D5 1/2 NS with 20mEq KCl and decrease to 100 ml/hr and continue to monitor urine output. BP and pulse stable. 3. GERD - on IV Pepcid q 12 hour and po pantoprazole given this am. 4. Hypokalemia - KCl in IV fluid since this am. 5. at 33 weeks and 6 days - NST is reactive. Had some mild cramping and mild tightenings every 10-12 minutes with NST but not strong or painful. Will continue to monitor. Ash Hernandez MD 1:01 PM 04/30/2019 - Plan Plan:: Assessment and plan 1. Acute pancreatitis - Doing better with IV dilaudid for pain control. Using 0.25 mg about every 2-3 hours and pain will go from 5/10 to 1-2/10. Nausea has improved at this time. Continue Zofran as needed for nausea that may develop. Will continue Dilaudid and keep NPO. Repeat labs in am. Lipase increased to 5500 this morning and on discussion with Dr. Spence he was recommending to have MRCP to further evaluate for possible obstruction at the sphincter of Oddi. Discussed that this is a safe procedure to perform during as there is no radiation that is used. Recommended to avoid use of gadolinium during the procedure unless absolutely necessary as there has been limited data on use of the contrast in . 2. Fluid status -continue IV D5 1/2NS with 20mEq KCl at 100 ml/hr. Continues to have good urine output with 50 to 100 mL/h. Creatinine and BUN stable. Will change to D5 1/2 NS with 20mEq KCl and decrease to 100 ml/hr and continue to monitor urine output. BP and pulse stable. 3. GERD - on IV Pepcid q 12 hour and po pantoprazole given this am. 4. Hypokalemia - KCl in IV fluid since this am. 5. at 33 weeks and 6 days - NST is reactive. Had some mild cramping and mild tightenings every 10-12 minutes with NST but not strong or painful. Will continue to monitor. Ash Hernandez MD 1:01 PM 04/30/2019
--- NOTE | 2019-04-30 13:41 | PCM.SN ---
- Free Text/Narrative Note: Anesthesia Note: Start: 1315 Stop: 1332 IV start times 3 attempts with 20 gauge to left wrist noted and flushed with 20ml's of normal saline. Patient tolerated well.
--- NOTE | 2019-04-30 14:13 | PCM.SN ---
- Free Text/Narrative Note: IV start per anesthesia: Start: 1350 Stop: 1400 IV to right AC times one attempt with 20 gauge. IV flushed with 20ml's of normal saline.
--- NOTE | 2019-04-30 15:01 | MR ---
MRI abdomen Technique: Various sequences were obtained through the upper abdomen. Patient was and this was discussed with Dr. Rosenbaum and it was believed that the small risk of MRI to the fetus outweighs the benefit to the patient. Findings: Liver and spleen shows no abnormality. Visualized kidneys appear within normal limits. Small amount of ascites is seen within the abdomen which is believed to be due to patient's clinically suspected pancreatitis. There is mild amount of edema around the pancreas being seen. There are no focal fluid collections of abscess or pancreatic pseudocyst being seen. Slight hydronephrosis of is noted within the right kidney. CBD and CHD appeared normal in size. No evidence of choledocholithiasis. No intrahepatic biliary duct dilatation is seen. Impression: 1. Mild amount of ascites with edema seen around the pancreas. Findings felt compatible with clinical history of pancreatitis. No pseudocyst or pancreatic abscess is seen at this time. 2. No abnormality is seen on the MR cholangiogram study. 3. Hydronephrosis of within the right kidney. Diagnostic code #3 This report was dictated in [place] Standard Time
--- NOTE | 2019-04-30 17:24 | PCM.PN ---
- General Info Date of Service: 04/30/19 Admission Dx/Problem (Free Text): Patient Status Order with Admit Dx/Problem 04/28/19 17:21 Patient Status [ADT] Routine Admission Diagnosis/Problem Admission Diagnosis/Problem Acute pancreatitis Subjective Update: Clinically doing a bit better today. Has been tolerating some ice chips without increased abdominal pain. Has been using dilaudid 0.25 mg iv about every 2 hours. Denies nausea. Not passing gas and no BM today. No fever. She has started feeling some uterine tightenings this evening, so will put her on the monitor for a while. Dr. Gamble ordered an MRI abdomen since her lipase and CRP have both increased significantly, but it is not showing and sludge or stone in the ducts and no pseudocyst. Does show inflammation of the pancreas consistent with pancreatitis. Her WBC is elevated as well, most likely related to the inflammation of the pancreatitis. She is not coughing or feeling SOB and has been using the IS. No fever. Respiratory panel was sent out today and is pending. She continues to have good urine output, about 100 ml/hr on average. K+ on labs today is normal range. She has KCl in her IV fluid. Functional Status: Reports: Pain Controlled, Ambulating, Urinating, Incentive Spirometry Pain Score: 2 (RUQ and epigastric, into the back) - Review of Systems General: Reports: No Symptoms HEENT: Reports: No Symptoms Pulmonary: Reports: Other (Pain in abdomen with deep breaths.) Cardiovascular: Reports: No Symptoms Gastrointestinal: Reports: Abdominal Pain, Constipation (No BM since admit, but has been NPO) Genitourinary: Reports: No Symptoms Musculoskeletal: Reports: No Symptoms Skin: Reports: No Symptoms Neurological: Reports: No Symptoms Psychiatric: Reports: No Symptoms - Patient Data Vitals - Most Recent: Last Vital Signs Temp 36.7 C 04/30/19 04:45 Pulse 104 H 04/30/19 04:45 Resp 16 04/30/19 04:45 BP 124/72 04/30/19 04:45 Pulse Ox 96 04/30/19 04:45 Weight - Most Recent: 91.314 kg I&O - Last 24 Hours: Intake & Output 04/30/19 04/30/19 04/30/19 06:59 14:59 22:59 Intake Total 45 1000 Output Total 400 775 Balance -355 225 Lab Results Last 24 Hours: Laboratory Results - last 24 hr 04/30/19 04/30/19 Range/Units 05:15 05:15 WBC 18.10 H (3.98-10.04) K/mm3 RBC 4.04 (3.98-5.22) M/mm3 Hgb 12.6 (11.2-15.7) gm/dl Hct 38.4 (34.1-44.9) % MCV 95.0 H (79.4-94.8) fl MCH 31.2 (25.6-32.2) pg MCHC 32.8 (32.2-35.5) g/dl RDW Std Deviation 45.6 (36.4-46.3) fL Plt Count 323 (182-369) K/mm3 MPV 9.7 (9.4-12.3) fl Neut % (Auto) 83.3 H (34.0-71.1) % Lymph % (Auto) 7.1 L (19.3-51.7) % [place] % (Auto) 8.9 (4.7-12.5) % Eos % (Auto) 0.4 L (0.7-5.8) Baso % (Auto) 0.1 (0.1-1.2) % Neut # (Auto) 15.08 H (1.56-6.13) K/mm3 Lymph # (Auto) 1.28 (1.18-3.74) K/mm3 [place] # (Auto) 1.61 H (0.24-0.36) K/mm3 Eos # (Auto) 0.08 (0.04-0.36) K/mm3 Baso # (Auto) 0.01 (0.01-0.08) K/mm3 Manual Slide Review Abnormal smear Sodium 136 (136-145) mEq/L Potassium 4.1 (3.5-5.1) mEq/L Chloride 105 (98-107) mEq/L Carbon Dioxide 19 L (21-32) mEq/L Anion Gap 16.1 H (5-15) BUN 5 L (7-18) mg/dL Creatinine 0.6 (0.55-1.02) mg/dL Est Cr Clr Drug Dosing 120.54 mL/min Estimated GFR (MDRD) > 60 (>60) mL/min BUN/Creatinine Ratio 8.3 L (14-18) Glucose 121 H (74-106) mg/dL Calcium 8.7 (8.5-10.1) mg/dL Total Bilirubin 1.5 H (0.2-1.0) mg/dL AST 22 (15-37) U/L ALT 15 (14-59) U/L Alkaline Phosphatase 118 H (46-116) U/L C-Reactive Protein 16.0 H* (<1.0) mg/dL Total Protein 6.9 (6.4-8.2) g/dl Albumin 2.6 L (3.4-5.0) g/dl Globulin 4.3 gm/dL Albumin/Globulin Ratio 0.6 L (1-2) Lipase 5594 H (73-393) U/L Med Orders - Current: Current Medications Famotidine (Pepcid) 20 mg IV Q12H PRN PRN Reason: Heartburn Last Admin: 04/30/19 05:18 Dose: 20 mg Fentanyl (Sublimaze) 50 mcg IVPUSH Q1H PRN PRN Reason: Abdominal Pain Last Admin: 04/29/19 09:26 Dose: 50 mcg Hydromorphone HCl (Dilaudid) 0.25 mg IVPUSH Q1H PRN PRN Reason: Abdominal Pain Last Admin: 04/30/19 15:46 Dose: 0.25 mg Potassium Chloride/Dextrose/Sod Cl (D5 1/2 Ns W/ 20 Meq/L Kcl) 1,000 mls @ 100 mls/hr IV ASDIRECTED [facility] Last Admin: 04/30/19 16:57 Dose: 100 mls/hr Ondansetron HCl (Zofran) 4 mg IV Q4H PRN PRN Reason: Nausea/Vomiting Last Admin: 04/29/19 11:06 Dose: 4 mg Pantoprazole Sodium (Protonix) 40 mg PO DAILY [facility] Last Admin: 04/30/19 10:25 Dose: 40 mg Discontinued Medications Al Hydroxide/Mg Hydroxide 30 (ml/ Lidocaine HCl 15 ml) 0 ml PO ONETIME ONE Stop: 04/28/19 18:55 Last Admin: 04/28/19 19:29 Dose: 45 ml Famotidine (Pepcid) 20 mg IVPUSH ONETIME ONE Stop: 04/28/19 18:50 Last Admin: 04/28/19 19:30 Dose: 20 mg Fentanyl (Sublimaze) 25 mcg IVPUSH Q1H PRN PRN Reason: Abdominal Pain Last Admin: 04/29/19 01:43 Dose: 25 mcg Lactated Ringer's (Ringers, Lactated) 1,000 mls @ 999 mls/hr IV .BOLUS ONE Stop: 04/28/19 19:50 Last Admin: 04/28/19 19:30 Dose: 999 mls/hr Lactated Ringer's (Ringers, Lactated) 1,000 mls @ 200 mls/hr IV ASDIRECTED [facility] Last Admin: 04/29/19 06:06 Dose: 200 mls/hr Potassium Chloride/Sodium Chloride (Normal Saline With 20 Meq Kcl) 1,000 mls @ 125 mls/hr IV ASDIRECTED [facility] Last Admin: 04/29/19 10:57 Dose: 125 mls/hr Potassium Chloride (Klor-Con M20) 40 meq PO ONETIME ONE Stop: 04/29/19 07:22 Last Admin: 04/29/19 09:28 Dose: 40 meq - Exam General: Alert, Oriented, Cooperative, Mild Distress (some increased abdominal pain with moving.) HEENT: Pupils Equal Neck: Supple Lungs: Normal Respiratory Effort, Decreased Breath Sounds (Decreased to breath sounds bilaterally. No crackles or wheezes) Cardiovascular: Regular Rate, Regular Rhythm GI/Abdominal Exam: Soft, Tender (Tender in RUQ and epigastrium), Abnormal Bowel Sounds (decreased bowel sounds) (Female) Exam: Enlarged Uterus (consistent with her gestation. Some tightenings with mild discomfort) Back Exam: Normal Inspection Extremities: No Pedal Edema, Other (SCD's in place) Skin: Warm, Dry, Intact Neurological: No New Focal Deficit Psy/Mental Status: Alert, Normal Affect, Normal Mood Sepsis Event Note - Evaluation Sepsis Screening Result: No Definite Risk - Problem List & Annotations (1) Acute pancreatitis SNOMED Code(s): 773449647 Code(s): K85.90 - ACUTE PANCREATITIS WITHOUT NECROSIS OR INFECTION, UNSP Status: Acute Current Visit: Yes (2) 33 weeks gestation of SNOMED Code(s): 83587881 Code(s): Z3A.33 - 33 WEEKS GESTATION OF Status: Acute Current Visit: Yes (3) Status post cholecystectomy SNOMED Code(s): 877221806, 69701500, 206832519 Code(s): Z90.49 - ACQUIRED ABSENCE OF OTHER SPECIFIED PARTS OF DIGESTIVE TRACT Status: Acute Current Visit: Yes (4) GERD (gastroesophageal reflux disease) SNOMED Code(s): 527539889 Code(s): K21.9 - GASTRO-ESOPHAGEAL REFLUX DISEASE WITHOUT ESOPHAGITIS Status: Acute Current Visit: Yes (5) Hypokalemia SNOMED Code(s): 58458438 Code(s): E87.6 - HYPOKALEMIA Status: Acute Current Visit: Yes - Problem List Review Problem List Initiated/Reviewed/Updated: Yes - My Orders Last 24 Hours: My Active Orders 04/29/19 19:00 D5 1/2 NS w/ 20 mEq/L KCl 1,000 ml IV ASDIRECTED 05/01/19 05:11 CBC W/O DIFF,HEMOGRAM [HEME] AM CMP [COMPREHENSIVE METABOLIC PN,CMP] [CHEM] AM CRP [C-REACTIVE PROTEIN] [CHEM] AM LIPASE [CHEM] AM - Assessment Assessment:: Assessment and plan 1. Acute pancreatitis - Doing better with IV dilaudid for pain control. Using 0.25 mg about every 2-3 hours and pain will go from 5/10 to 1-2/10. Nausea has improved at this time. Continue Zofran as needed for nausea that may develop. Will continue Dilaudid and keep NPO. Repeat labs in am. Lipase increased to 5500 this morning. MRI abdomen was done and no sludge or stone in CBD noted, no pseudocyst or necrosis of pancreas. Inflammation of pancreas consistent with pancreatitis and some ascites. 2. Fluid status -continue IV D5 1/2NS with 20mEq KCl at 100 ml/hr. Continues to have good urine output with 50 to 100 mL/h. Creatinine and BUN stable. Continue to monitor urine output. BP and pulse stable. 3. GERD - on IV Pepcid q 12 hour and po pantoprazole given this am. 4. Hypokalemia - KCl in IV fluid, K+ normal today 5. at 33 weeks and 6 days - NST is reactive. Feeling some mild tightenings again this evening, and has been on the monitor for about 20 minutes now and contractions noted about every 8 minutes but mild and not painful. Baby is reactive with good accelerations and moderate variability. [place] [address]/30/19 - Plan Plan:: Assessment and plan 1. Acute pancreatitis - Doing better with IV dilaudid for pain control. Using 0.25 mg about every 2-3 hours and pain will go from 5/10 to 1-2/10. Nausea has improved at this time. Continue Zofran as needed for nausea that may develop. Will continue Dilaudid and keep NPO. Repeat labs in am. Lipase increased to 5500 this morning and on discussion with Dr. Spence he was recommending to have MRCP to further evaluate for possible obstruction at the sphincter of Oddi. Discussed that this is a safe procedure to perform during as there is no radiation that is used. Recommended to avoid use of gadolinium during the procedure unless absolutely necessary as there has been limited data on use of the contrast in . 2. Fluid status -continue IV D5 1/2NS with 20mEq KCl at 100 ml/hr. Continues to have good urine output with 50 to 100 mL/h. Creatinine and BUN stable. Will change to D5 1/2 NS with 20mEq KCl and decrease to 100 ml/hr and continue to monitor urine output. BP and pulse stable. 3. GERD - on IV Pepcid q 12 hour and po pantoprazole given this am. 4. Hypokalemia - KCl in IV fluid since this am. 5. at 33 weeks and 6 days - NST is reactive. Had some mild cramping and mild tightenings every 10-12 minutes with NST but not strong or painful. Will continue to monitor. Ash Hernandez MD 1:01 PM 04/30/2019
[2019-05-01] MEDS: HYDROmorphone 0.5 MG/0.5 ML Syringe IVPUSH PRN ×5 (00:07→08:59)
[2019-05-01] MEDS: D5 1/2 NS w/ 20 mEq/L KCl 1,000 ML IV SCH (03:05)
[2019-05-01] MEDS: Famotidine 20 MG/2 ML SDV IV PRN (09:46)
[2019-05-01] MEDS: Pantoprazole 40 MG Tab.CR PO SCH (09:47)
[2019-05-01] MEDS: Morphine 2 MG/ML Syringe IVPUSH PRN ×4 (12:26→21:28)
[2019-05-01] MEDS ORDERED: Lactated Ringers 1,000 ML IV STA (13:55)
[2019-05-01] MEDS ORDERED: Magnesium Sulfate/Water 4 GM in Premix Bag 1 BAG IV ONE (14:30)
[2019-05-01] MEDS ORDERED: Potassium Phosphates 30 MMOLE in Sodium Chloride 0.9% 250 ML IV ONE (14:30)
[2019-05-01] MEDS ORDERED: Sodium Chloride 0.9% 500 ML IV SCH (15:00)
--- NOTE | 2019-05-01 15:49 | PCM.PN ---
- General Info Date of Service: 05/01/19 Subjective Update: Feeling better than on admission but currently in pain slept ok - Patient Data Vitals - Most Recent: Last Vital Signs Temp 98.1 F 05/01/19 12:51 Pulse 100 05/01/19 12:51 Resp 20 05/01/19 12:51 BP 125/66 05/01/19 12:51 Pulse Ox 95 05/01/19 12:51 Weight - Most Recent: 91.314 kg - Exam General: Alert, Oriented, Cooperative, Moderate Distress HEENT: Pupils Equal, Pupils Reactive, EOMI. No: Mucous Membr. Moist/[place] Neck: Supple, Trachea Midline, No JVD Lungs: Clear to Auscultation, Normal Respiratory Effort. No: Crackles, Rales, Rhonchi Cardiovascular: Regular Rate, Regular Rhythm. No: Murmurs, Gallops, Rubs GI/Abdominal Exam: Soft, Tender. No: Guarding, Rigid, Rebound Neurological: No New Focal Deficit Psy/Mental Status: Alert Sepsis Event Note - Evaluation Sepsis Screening Result: No Definite Risk - Focused Exam Vital Signs: Vital Signs Temp Temp Pulse Pulse Resp BP BP 05/01/19 12:51 98.1 F 100 20 125/66 05/01/19 08:05 97.3 F 105 H 22 H 121/52 L 05/01/19 05:26 98.1 F 97 20 119/71 05/01/19 04:00 98.0 F 95 20 119/71 Pulse Ox 05/01/19 12:51 95 05/01/19 08:05 97 05/01/19 05:26 95 05/01/19 04:00 96 Date Exam was Performed: 05/01/19 Time Exam was Performed: 15:53 - Problem List & Annotations (1) Acute pancreatitis SNOMED Code(s): 642059956 Code(s): K85.90 - ACUTE PANCREATITIS WITHOUT NECROSIS OR INFECTION, UNSP Status: Acute Current Visit: Yes (2) 33 weeks gestation of SNOMED Code(s): 14375774 Code(s): Z3A.33 - 33 WEEKS GESTATION OF Status: Acute Current Visit: Yes (3) Hypomagnesemia SNOMED Code(s): 734699663 Code(s): E83.42 - HYPOMAGNESEMIA Status: Acute Current Visit: Yes (4) Hypophosphatemia SNOMED Code(s): 7007212 Code(s): E83.39 - OTHER DISORDERS OF PHOSPHORUS METABOLISM Status: Acute Current Visit: Yes (5) Hypokalemia SNOMED Code(s): 28538480 Code(s): E87.6 - HYPOKALEMIA Status: Acute Current Visit: Yes - Problem List Review Problem List Initiated/Reviewed/Updated: Yes - Plan Plan:: Acute pancreatitis Patient came in with severe abdominal pain Previous cholecystectomy in 2010 with negative MRCP Admitted for supportive care Pain controlled Tolerating ice chips today PLAN - Change IVF to LR at 125ml/hr - Change pain regimen to IV tylenol and morphine Hypomagnesemia/Hypophosphatemia/Hypokalemia Potassium has been replaced with IVF for 3 days Magnesium and phosphate level today significantly low PLAN - Replace with 30mMol with K phosphate - Replace with 4g of Mg SO4 - Repeat labs in AM 33 weeks gestation of Primary team to follow No distress or any changes as per nursing CODE STATUS: FULL CODE PROPHYLAXIS & DISPOSITION PER PRIMARY TEAM
[2019-05-01] MEDS: Acetaminophen/Codeine 300-30 MG Tab PO PRN (18:21)
--- NOTE | 2019-05-01 18:27 | PCM.PN ---
- General Info Date of Service: 05/01/18 Admission Dx/Problem (Free Text): Patient Status Order with Admit Dx/Problem 04/28/19 17:21 Patient Status [ADT] Routine Admission Diagnosis/Problem Admission Diagnosis/Problem Acute pancreatitis Subjective Update: 05/01/18 1820 Patient was seen this am and again this evening. She had been tolerating some ice chips without increased pain so advised to try more sips of fluids which she has been tolerating today. Her lipase this am is down to 1200, WBC is down some, but CRP still significantly elevated. Hospitalist rounded on her this afternoon and changed her pain medicine to morphine since Dilaudid can irritate the pancreatic duct. She has had 1 dose of morphine and did not have the pain like she did when dilaudid was injected. She has also ordered some Tylenol #3, trying to back off on the narcotics. She still is not passing gas and no BM. She has walking the halls twice today, voiding well and urine is more yellow in color, not tea colored like it had been. Continues to do her IS and getting better with it. Phosphorous and magnesium replaced via IV today. Baby has been active and NST this am was reactive. No contractions. Functional Status: Reports: Pain Controlled, Ambulating, Urinating, Incentive Spirometry - Review of Systems General: Reports: No Symptoms HEENT: Reports: No Symptoms Pulmonary: Reports: No Symptoms Cardiovascular: Reports: No Symptoms Gastrointestinal: Reports: Abdominal Pain (Less pain in the upper abdomen, but still significant pain in the mid back) Genitourinary: Reports: No Symptoms Musculoskeletal: Reports: No Symptoms Skin: Reports: No Symptoms Neurological: Reports: No Symptoms Psychiatric: Reports: No Symptoms - Patient Data Vitals - Most Recent: Last Vital Signs Temp 36.7 C 05/01/19 16:24 Pulse 103 H 05/01/19 16:24 Resp 20 05/01/19 12:51 BP 115/58 L 05/01/19 16:24 Pulse Ox 99 05/01/19 16:24 Weight - Most Recent: 91.314 kg I&O - Last 24 Hours: Intake & Output 05/01/19 05/01/19 05/01/19 06:59 14:59 22:59 Output Total 500 875 400 Balance -500 -645 -400 Lab Results Last 24 Hours: Laboratory Results - last 24 hr 05/01/19 05/01/19 05/01/19 Range/Units 06:05 06:05 12:31 WBC 15.57 H (3.98-10.04) K/mm3 RBC 3.55 L (3.98-5.22) M/mm3 Hgb 10.8 L D (11.2-15.7) gm/dl Hct 34.0 L (34.1-44.9) % MCV 95.8 H (79.4-94.8) fl MCH 30.4 (25.6-32.2) pg MCHC 31.8 L (32.2-35.5) g/dl RDW Std Deviation 46.3 (36.4-46.3) fL Plt Count 279 (182-369) K/mm3 MPV 9.2 L (9.4-12.3) fl Sodium 136 (136-145) mEq/L Potassium 3.6 3.5 (3.5-5.1) mEq/L Chloride 106 (98-107) mEq/L Carbon Dioxide 18 L (21-32) mEq/L Anion Gap 15.6 H (5-15) BUN 4 L (7-18) mg/dL Creatinine 0.4 L (0.55-1.02) mg/dL Est Cr Clr Drug Dosing 180.81 mL/min Estimated GFR (MDRD) > 60 (>60) mL/min BUN/Creatinine Ratio 10.0 L (14-18) Glucose 94 (74-106) mg/dL Calcium 8.5 (8.5-10.1) mg/dL Phosphorus 2.1 L (2.6-4.7) mg/dL Magnesium 1.4 L (1.8-2.4) mg/dl Total Bilirubin 1.0 (0.2-1.0) mg/dL AST 15 (15-37) U/L ALT 11 L (14-59) U/L Alkaline Phosphatase 107 (46-116) U/L C-Reactive Protein 18.2 H* (<1.0) mg/dL Total Protein 6.0 L (6.4-8.2) g/dl Albumin 2.2 L (3.4-5.0) g/dl Globulin 3.8 gm/dL Albumin/Globulin Ratio 0.6 L (1-2) Lipase 1247 H (73-393) U/L Med Orders - Current: Current Medications Acetaminophen/Codeine Phosphate (Tylenol With Codeine No.3 300mg/30mg) 2 tab PO Q6H PRN PRN Reason: Pain Famotidine (Pepcid) 20 mg IV Q12H PRN PRN Reason: Heartburn Last Admin: 05/01/19 09:46 Dose: 20 mg Lactated Ringer's (Ringers, Lactated) 1,000 mls @ 125 mls/hr IV ASDIRECTED [facility] Stop: 05/01/19 21:54 Magnesium Sulfate 4 gm/ Premix 50 mls @ 12.5 mls/hr IV ONETIME ONE Stop: 05/01/19 18:29 Last Admin: 05/01/19 14:43 Dose: 12.5 mls/hr Potassium Phosphate 30 mmole/ (Sodium Chloride) 260 mls @ 52 mls/hr IV ONETIME ONE Stop: 05/01/19 19:29 Last Admin: 05/01/19 14:42 Dose: 52 mls/hr Sodium Chloride (Normal Saline) 500 mls @ 100 mls/hr IV ASDIRECTED [facility] Last Admin: 05/01/19 15:04 Dose: 100 mls/hr Morphine Sulfate (Morphine) 2 mg IVPUSH Q4H PRN PRN Reason: Pain Last Admin: 05/01/19 17:21 Dose: 2 mg Ondansetron HCl (Zofran) 4 mg IV Q4H PRN PRN Reason: Nausea/Vomiting Last Admin: 04/29/19 11:06 Dose: 4 mg Pantoprazole Sodium (Protonix) 40 mg PO DAILY [facility] Last Admin: 05/01/19 09:47 Dose: 40 mg Discontinued Medications Al Hydroxide/Mg Hydroxide 30 (ml/ Lidocaine HCl 15 ml) 0 ml PO ONETIME ONE Stop: 04/28/19 18:55 Last Admin: 04/28/19 19:29 Dose: 45 ml Famotidine (Pepcid) 20 mg IVPUSH ONETIME ONE Stop: 04/28/19 18:50 Last Admin: 04/28/19 19:30 Dose: 20 mg Fentanyl (Sublimaze) 25 mcg IVPUSH Q1H PRN PRN Reason: Abdominal Pain Last Admin: 04/29/19 01:43 Dose: 25 mcg Fentanyl (Sublimaze) 50 mcg IVPUSH Q1H PRN PRN Reason: Abdominal Pain Last Admin: 04/29/19 09:26 Dose: 50 mcg Hydromorphone HCl (Dilaudid) 0.25 mg IVPUSH Q1H PRN PRN Reason: Abdominal Pain Last Admin: 05/01/19 08:59 Dose: 0.25 mg Lactated Ringer's (Ringers, Lactated) 1,000 mls @ 999 mls/hr IV .BOLUS ONE Stop: 04/28/19 19:50 Last Admin: 04/28/19 19:30 Dose: 999 mls/hr Lactated Ringer's (Ringers, Lactated) 1,000 mls @ 200 mls/hr IV ASDIRECTED [facility] Last Admin: 04/29/19 06:06 Dose: 200 mls/hr Potassium Chloride/Sodium Chloride (Normal Saline With 20 Meq Kcl) 1,000 mls @ 125 mls/hr IV ASDIRECTED [facility] Last Admin: 04/29/19 10:57 Dose: 125 mls/hr Potassium Chloride/Dextrose/Sod Cl (D5 1/2 Ns W/ 20 Meq/L Kcl) 1,000 mls @ 100 mls/hr IV ASDIRECTED [facility] Last Admin: 05/01/19 03:05 Dose: 100 mls/hr Acetaminophen (Ofirmev) 100 mls @ 400 mls/hr IV Q6HR PRN PRN Reason: Pain Stop: 05/02/19 12:15 Acetaminophen (Ofirmev) 100 mls @ 400 mls/hr IV Q6H PRN PRN Reason: Pain Stop: 05/02/19 12:15 Acetaminophen (Ofirmev) 65 mls @ 400 mls/hr IV Q4H PRN PRN Reason: Pain Stop: 05/02/19 13:55 Last Admin: 05/01/19 14:07 Dose: 260 mls/hr Morphine Sulfate (Morphine) 1 mg IVPUSH Q2H PRN PRN Reason: Pain Last Admin: 05/01/19 14:03 Dose: 1 mg Potassium Chloride (Klor-Con M20) 40 meq PO ONETIME ONE Stop: 04/29/19 07:22 Last Admin: 04/29/19 09:28 Dose: 40 meq - Exam General: Alert, Oriented, Cooperative, No Acute Distress HEENT: Pupils Equal Neck: Supple Lungs: Normal Respiratory Effort, Decreased Breath Sounds (Decreased breath sounds to bases. No crackles or wheezes noted. ) Cardiovascular: Regular Rate, Regular Rhythm, No Murmurs GI/Abdominal Exam: Tender (mild tenderness at this time in the RUQ and epigastric area), Abnormal Bowel Sounds (minimal bowel sounds. ) (Female) Exam: Enlarged Uterus, Heart Tones (130's) Back Exam: CVA Tenderness (R) Extremities: No Pedal Edema, Other (SCD'S in place) Skin: Warm, Dry, Intact Neurological: No New Focal Deficit Psy/Mental Status: Alert, Normal Affect, Normal Mood Sepsis Event Note - Evaluation Sepsis Screening Result: No Definite Risk - Focused Exam Vital Signs: Vital Signs Temp Pulse Resp BP Pulse Ox 05/01/19 16:24 36.7 C 103 H 115/58 L 99 05/01/19 13:21 106 H 100 05/01/19 12:51 36.7 C 100 20 125/66 95 05/01/19 08:05 36.3 C 105 H 22 H 121/52 L 97 Date Exam was Performed: 05/01/19 Time Exam was Performed: 18:21 - Problem List & Annotations (1) Acute pancreatitis SNOMED Code(s): 489846806 Code(s): K85.90 - ACUTE PANCREATITIS WITHOUT NECROSIS OR INFECTION, UNSP Status: Acute Current Visit: Yes (2) 33 weeks gestation of SNOMED Code(s): 98762958 Code(s): Z3A.33 - 33 WEEKS GESTATION OF Status: Acute Current Visit: Yes (3) Status post cholecystectomy SNOMED Code(s): 704551698, 44932156, 835440586 Code(s): Z90.49 - ACQUIRED ABSENCE OF OTHER SPECIFIED PARTS OF DIGESTIVE TRACT Status: Acute Current Visit: Yes (4) GERD (gastroesophageal reflux disease) SNOMED Code(s): 215324142 Code(s): K21.9 - GASTRO-ESOPHAGEAL REFLUX DISEASE WITHOUT ESOPHAGITIS Status: Acute Current Visit: Yes (5) Hypokalemia SNOMED Code(s): 38026220 Code(s): E87.6 - HYPOKALEMIA Status: Acute Current Visit: Yes - Problem List Review Problem List Initiated/Reviewed/Updated: Yes - My Orders Last 24 Hours: My Active Orders 05/01/19 Dinner Clear Liquid Diet [DIET] 05/02/19 05:11 CBC WITH AUTO DIFF [HEME] AM COMPREHENSIVE METABOLIC PN,CMP [CHEM] AM CRP [C-REACTIVE PROTEIN] [CHEM] AM LIPASE [CHEM] AM - Assessment Assessment:: Assessment and plan 1. Acute pancreatitis - Lipase is down this am to about 1200. WBC is down, but CRP still elevated. Pain med changed to IV morphine every 4 hours as needed since dilaudid can irritate the pancreatic duct. Also started po tylenol with codeine. Continue IS and encourage ambulation. Try starting clear fluids this evening. Repeat labs in am. MRI abdomen was done and no sludge or stone in CBD noted, no pseudocyst or necrosis of pancreas. Inflammation of pancreas consistent with pancreatitis and some ascites. 2. Fluid status -Continues to have good urine output with 50 to 100 mL/h. Creatinine and BUN stable. IV fluid changed by hospitalist to LR at 125 ml/hr. Continue to monitor urine output. BP and pulse stable. 3. GERD - on IV Pepcid q 12 hour and po pantoprazole given this am. 4. Hypokalemia - K+ today 3.6. Mag level and PO4 checked and low, so IV replacements ordered by hospitalist. 5. at 34 weeks - NST is reactive. No contractions today. Will continue to monitor. Jessica Harris MD 181905/01/19 - Plan Plan:: Acute pancreatitis Patient came in with severe abdominal pain Previous cholecystectomy in 2010 with negative MRCP Admitted for supportive care Pain controlled Tolerating ice chips today PLAN - Change IVF to LR at 125ml/hr - Change pain regimen to IV tylenol and morphine Hypomagnesemia/Hypophosphatemia/Hypokalemia Potassium has been replaced with IVF for 3 days Magnesium and phosphate level today significantly low PLAN - Replace with 30mMol with K phosphate - Replace with 4g of Mg SO4 - Repeat labs in AM 33 weeks gestation of Primary team to follow No distress or any changes as per nursing CODE STATUS: FULL CODE PROPHYLAXIS & DISPOSITION PER PRIMARY TEAM
[2019-05-02] MEDS: Acetaminophen/Codeine 300-30 MG Tab PO PRN ×4 (00:18→18:08)
[2019-05-02] MEDS: Simethicone 80 MG Tab.Chew PO PRN (01:36)
[2019-05-02] MEDS: Morphine 2 MG/ML Syringe IVPUSH PRN ×2 (03:58→14:26)
[2019-05-02] MEDS: Lactated Ringers 1,000 ML IV SCH ×3 (05:05→18:24)
[2019-05-02] MEDS: Pantoprazole 40 MG Tab.CR PO SCH (09:50)
[2019-05-02] MEDS ORDERED: Bisacodyl 10 MG Supp RECTAL PRN (13:39)
[2019-05-02] MEDS ORDERED: Potassium Chloride 20 MEQ Tab.ER PO SCH (14:00)
--- NOTE | 2019-05-02 14:09 | PCM.PN ---
- General Info Date of Service: 05/02/19 Admission Dx/Problem (Free Text): Patient Status Order with Admit Dx/Problem 04/28/19 17:21 Patient Status [ADT] Routine Admission Diagnosis/Problem Admission Diagnosis/Problem Acute pancreatitis Subjective Update: Patient was having lower abdominal pressure and pain late last night. NST showed contraction about every 9 minutes, but it didn't seem to correlate with the pain. She tried sitting on the toilet for a BM with no success, not passing gas. She walked in the halls and that helped a bit. The nurse called me and I ordered simethicone for gas pain and that did seem to help. Today she has been having an "ache" in the left upper and mid abdomen, which also could be related to obstipation. She had her last dose of IV morphine at 0400 and pain has mostly been controlled with 2 Tylenol #3 every 6 hours. She has been tolerating clear fluids - some broth, jello and apple juice - without increased RUQ pain. No nausea or vomiting. Labs today show lipase down to 700 range, WBC down a touch, CRP still elevated. Mag level is up to 1.7, PO4 is normal range this am but K+ low at 3.4. Functional Status: Reports: Pain Controlled, Tolerating Diet, Ambulating, Urinating, Incentive Spirometry Pain Score: 6 (was a little late getting her Tylenol #3 and just had a dose) - Review of Systems General: Reports: No Symptoms HEENT: Reports: No Symptoms Pulmonary: Reports: Cough Cardiovascular: Reports: No Symptoms Gastrointestinal: Reports: Abdominal Pain (RUQ and epigastric tender, also some mild tenderness left side of the abdomen), Constipation Genitourinary: Reports: No Symptoms Musculoskeletal: Reports: No Symptoms - Patient Data Vitals - Most Recent: Last Vital Signs Temp 37.3 C 05/02/19 12:44 Pulse 101 H 05/02/19 12:44 Resp 16 05/02/19 12:44 BP 112/75 05/02/19 12:44 Pulse Ox 98 05/02/19 12:44 Weight - Most Recent: 91.314 kg I&O - Last 24 Hours: Intake & Output 05/01/19 05/02/19 05/02/19 22:59 06:59 14:59 Intake Total 1475 2100 Output Total 1050 1600 650 Balance 425 500 -650 Lab Results Last 24 Hours: Laboratory Results - last 24 hr 05/02/19 05/02/19 Range/Units 05:20 05:20 WBC 15.23 H (3.98-10.04) K/mm3 RBC 3.51 L (3.98-5.22) M/mm3 Hgb 10.8 L (11.2-15.7) gm/dl Hct 33.6 L (34.1-44.9) % MCV 95.7 H (79.4-94.8) fl MCH 30.8 (25.6-32.2) pg MCHC 32.1 L (32.2-35.5) g/dl RDW Std Deviation 46.4 H (36.4-46.3) fL Plt Count 290 (182-369) K/mm3 MPV 9.7 (9.4-12.3) fl Neut % (Auto) 77.1 H (34.0-71.1) % Lymph % (Auto) 10.5 L (19.3-51.7) % [place] % (Auto) 10.1 (4.7-12.5) % Eos % (Auto) 1.9 (0.7-5.8) Baso % (Auto) 0.1 (0.1-1.2) % Neut # (Auto) 11.74 H (1.56-6.13) K/mm3 Lymph # (Auto) 1.60 (1.18-3.74) K/mm3 [place] # (Auto) 1.54 H (0.24-0.36) K/mm3 Eos # (Auto) 0.29 (0.04-0.36) K/mm3 Baso # (Auto) 0.02 (0.01-0.08) K/mm3 Manual Slide Review Abnormal smear Sodium 138 (136-145) mEq/L Potassium 3.4 L (3.5-5.1) mEq/L Chloride 106 (98-107) mEq/L Carbon Dioxide 17 L (21-32) mEq/L Anion Gap 18.4 H (5-15) BUN 3 L (7-18) mg/dL Creatinine 0.4 L (0.55-1.02) mg/dL Est Cr Clr Drug Dosing 180.81 mL/min Estimated GFR (MDRD) > 60 (>60) mL/min BUN/Creatinine Ratio 7.5 L (14-18) Glucose 57 L (74-106) mg/dL Calcium 8.4 L (8.5-10.1) mg/dL Phosphorus 2.9 (2.6-4.7) mg/dL Magnesium 1.7 L (1.8-2.4) mg/dl Total Bilirubin 1.0 (0.2-1.0) mg/dL AST 18 (15-37) U/L ALT 13 L (14-59) U/L Alkaline Phosphatase 103 (46-116) U/L C-Reactive Protein 18.9 H* (<1.0) mg/dL Total Protein 6.1 L (6.4-8.2) g/dl Albumin 2.2 L (3.4-5.0) g/dl Globulin 3.9 gm/dL Albumin/Globulin Ratio 0.6 L (1-2) Lipase 789 H (73-393) U/L Med Orders - Current: Current Medications Acetaminophen/Codeine Phosphate (Tylenol With Codeine No.3 300mg/30mg) 2 tab PO Q6H PRN PRN Reason: Pain Last Admin: 05/02/19 12:41 Dose: 2 tab Bisacodyl (Dulcolax) 10 mg RECTAL DAILY PRN PRN Reason: Constipation Famotidine (Pepcid) 20 mg IV Q12H PRN PRN Reason: Heartburn Last Admin: 05/01/19 09:46 Dose: 20 mg Lactated Ringer's (Ringers, Lactated) 1,000 mls @ 75 mls/hr IV ASDIRECTED [facility] Last Admin: 05/02/19 05:05 Dose: 75 mls/hr Morphine Sulfate (Morphine) 2 mg IVPUSH Q4H PRN PRN Reason: Pain Last Admin: 05/02/19 03:58 Dose: 2 mg Ondansetron HCl (Zofran) 4 mg IV Q4H PRN PRN Reason: Nausea/Vomiting Last Admin: 04/29/19 11:06 Dose: 4 mg Pantoprazole Sodium (Protonix) 40 mg PO DAILY [facility] Last Admin: 05/02/19 09:50 Dose: 40 mg Polyethylene Glycol (Miralax) 17 gm PO DAILY [facility] Potassium Chloride (Klor-Con M20) 20 meq PO DAILY [facility] Senna/Docusate Sodium (Senna Plus) 2 tab PO BEDTIME [facility] Simethicone (Simethicone) 80 mg PO Q4H PRN PRN Reason: Gas Last Admin: 05/02/19 01:36 Dose: 80 mg Discontinued Medications Al Hydroxide/Mg Hydroxide 30 (ml/ Lidocaine HCl 15 ml) 0 ml PO ONETIME ONE Stop: 04/28/19 18:55 Last Admin: 04/28/19 19:29 Dose: 45 ml Famotidine (Pepcid) 20 mg IVPUSH ONETIME ONE Stop: 04/28/19 18:50 Last Admin: 04/28/19 19:30 Dose: 20 mg Fentanyl (Sublimaze) 25 mcg IVPUSH Q1H PRN PRN Reason: Abdominal Pain Last Admin: 04/29/19 01:43 Dose: 25 mcg Fentanyl (Sublimaze) 50 mcg IVPUSH Q1H PRN PRN Reason: Abdominal Pain Last Admin: 04/29/19 09:26 Dose: 50 mcg Hydromorphone HCl (Dilaudid) 0.25 mg IVPUSH Q1H PRN PRN Reason: Abdominal Pain Last Admin: 05/01/19 08:59 Dose: 0.25 mg Lactated Ringer's (Ringers, Lactated) 1,000 mls @ 999 mls/hr IV .BOLUS ONE Stop: 04/28/19 19:50 Last Admin: 04/28/19 19:30 Dose: 999 mls/hr Lactated Ringer's (Ringers, Lactated) 1,000 mls @ 200 mls/hr IV ASDIRECTED [facility] Last Admin: 04/29/19 06:06 Dose: 200 mls/hr Potassium Chloride/Sodium Chloride (Normal Saline With 20 Meq Kcl) 1,000 mls @ 125 mls/hr IV ASDIRECTED [facility] Last Admin: 04/29/19 10:57 Dose: 125 mls/hr Potassium Chloride/Dextrose/Sod Cl (D5 1/2 Ns W/ 20 Meq/L Kcl) 1,000 mls @ 100 mls/hr IV ASDIRECTED [facility] Last Admin: 05/01/19 03:05 Dose: 100 mls/hr Acetaminophen (Ofirmev) 100 mls @ 400 mls/hr IV Q6HR PRN PRN Reason: Pain Stop: 05/02/19 12:15 Acetaminophen (Ofirmev) 100 mls @ 400 mls/hr IV Q6H PRN PRN Reason: Pain Stop: 05/02/19 12:15 Acetaminophen (Ofirmev) 65 mls @ 400 mls/hr IV Q4H PRN PRN Reason: Pain Stop: 05/02/19 13:55 Last Admin: 05/01/19 14:07 Dose: 260 mls/hr Lactated Ringer's (Ringers, Lactated) 1,000 mls @ 125 mls/hr IV ASDIRECTED [facility] Stop: 05/01/19 21:54 Last Infusion: 05/01/19 22:35 Dose: 75 mls/hr Magnesium Sulfate 4 gm/ Premix 50 mls @ 12.5 mls/hr IV ONETIME ONE Stop: 05/01/19 18:29 Last Admin: 05/01/19 14:43 Dose: 12.5 mls/hr Potassium Phosphate 30 mmole/ (Sodium Chloride) 260 mls @ 52 mls/hr IV ONETIME ONE Stop: 05/01/19 19:29 Last Admin: 05/01/19 14:42 Dose: 52 mls/hr Sodium Chloride (Normal Saline) 500 mls @ 100 mls/hr IV ASDIRECTED [facility] Last Admin: 05/01/19 15:04 Dose: 100 mls/hr Morphine Sulfate (Morphine) 1 mg IVPUSH Q2H PRN PRN Reason: Pain Last Admin: 05/01/19 14:03 Dose: 1 mg Potassium Chloride (Klor-Con M20) 40 meq PO ONETIME ONE Stop: 04/29/19 07:22 Last Admin: 04/29/19 09:28 Dose: 40 meq - Exam General: Alert, Oriented, Cooperative, Mild Distress HEENT: Pupils Equal Neck: Supple Lungs: Decreased Breath Sounds (Decreased to bases, no crackles or wheezes. Getting IS up to about 1200) Cardiovascular: Regular Rate GI/Abdominal Exam: Tender (RUQ and epigastric and also some pain in left side of abdomen.), Abnormal Bowel Sounds (Some bowel sounds noted, improved from yesterday.) (Female) Exam: Enlarged Uterus (uterus is soft to palpation), Heart Tones (NST reactive this afternoon, baseline 120, moderate variability) Back Exam: Normal Inspection, Full Range of Motion Extremities: No Pedal Edema, Normal Capillary Refill Skin: Warm, Dry, Intact Neurological: No New Focal Deficit Psy/Mental Status: Alert, Normal Affect, Normal Mood Sepsis Event Note - Evaluation Sepsis Screening Result: No Definite Risk - Focused Exam Vital Signs: Vital Signs Temp Pulse Resp BP Pulse Ox 05/02/19 12:44 37.3 C 101 H 16 112/75 98 05/02/19 08:31 36.7 C 96 20 107/66 98 05/02/19 04:04 36.7 C 97 18 103/74 96 Date Exam was Performed: 05/02/19 Time Exam was Performed: 14:04 - Problem List & Annotations (1) Acute pancreatitis SNOMED Code(s): 237759634 Code(s): K85.90 - ACUTE PANCREATITIS WITHOUT NECROSIS OR INFECTION, UNSP Status: Acute Current Visit: Yes (2) 33 weeks gestation of SNOMED Code(s): 34784550 Code(s): Z3A.33 - 33 WEEKS GESTATION OF Status: Acute Current Visit: Yes (3) Status post cholecystectomy SNOMED Code(s): 984084286, 76399946, 244633679 Code(s): Z90.49 - ACQUIRED ABSENCE OF OTHER SPECIFIED PARTS OF DIGESTIVE TRACT Status: Acute Current Visit: Yes (4) GERD (gastroesophageal reflux disease) SNOMED Code(s): 771139731 Code(s): K21.9 - GASTRO-ESOPHAGEAL REFLUX DISEASE WITHOUT ESOPHAGITIS Status: Acute Current Visit: Yes (5) Hypokalemia SNOMED Code(s): 60395411 Code(s): E87.6 - HYPOKALEMIA Status: Acute Current Visit: Yes - Problem List Review Problem List Initiated/Reviewed/Updated: Yes - My Orders Last 24 Hours: My Active Orders 05/01/19 Dinner Clear Liquid Diet [DIET] 05/02/19 01:15 Simethicone 80 mg PO Q4H PRN 05/02/19 13:39 bisacodyL [Dulcolax] 10 mg RECTAL DAILY PRN 05/02/19 13:45 Polyethylene Glycol 3350 [MiraLAX] 17 gm PO DAILY 05/02/19 14:00 Potassium Chloride [Klor-Con M20] 20 meq PO DAILY 05/02/19 21:00 Docusate Sodium/Sennosides [Senna Plus] 2 tab PO BEDTIME 05/03/19 05:11 CBC WITH AUTO DIFF [HEME] AM COMPREHENSIVE METABOLIC PN,CMP [CHEM] AM CRP [C-REACTIVE PROTEIN] [CHEM] AM LIPASE [CHEM] AM MAGNESIUM [CHEM] AM - Assessment Assessment:: Assessment and plan 1. Acute pancreatitis - Lipase is down this am to about 789. WBC is down, but CRP still elevated at 18.9. Pain is controlled mostly with PO tylenol #3, 2 every 6 hours. She had her last dose of IV morphine at 0400 today. She does not get the pain during administration of morphine that she was getting with Dilaudid. Continue IS and encourage ambulation. Tolerating clear fluids, no nausea and no increased pain with po fluids. Repeat labs in am. MRI abdomen was done and no sludge or stone in CBD noted, no pseudocyst or necrosis of pancreas. Inflammation of pancreas consistent with pancreatitis and some ascites. 2. Fluid status -Continues to have good urine output with 50 to 100 mL/h. Creatinine and BUN stable. IV fluid changed by hospitalist to LR at 125 ml/hr. She is taking PO fluids now and tolerating. Continue to monitor urine output. BP and pulse stable. 3. GERD - on IV Pepcid q 12 hour and po pantoprazole given this am. 4. Hypokalemia - K+ today 3.4. Mag level is up to 1.7, PO4 up to 2.9. Will start PO KCl 20 mEq daily. 5. Ileus - not passing gas and no BM since admission. Will start Miralax today , prn dulcolax supp. Will also start Senekot-S nightly to help counteract the narcotic effect on the bowel. Encourage ambulation. Simethicone as needed for gas pains. 5. at 34 +1 weeks - NST is reactive. No contractions today. Will continue to monitor. Jessica Harris MD [id number] 05/02/19 - Plan Plan:: Acute pancreatitis Patient came in with severe abdominal pain Previous cholecystectomy in 2010 with negative MRCP Admitted for supportive care Pain controlled Tolerating ice chips today PLAN - Change IVF to LR at 125ml/hr - Change pain regimen to IV tylenol and morphine Hypomagnesemia/Hypophosphatemia/Hypokalemia Potassium has been replaced with IVF for 3 days Magnesium and phosphate level today significantly low PLAN - Replace with 30mMol with K phosphate - Replace with 4g of Mg SO4 - Repeat labs in AM 33 weeks gestation of Primary team to follow No distress or any changes as per nursing CODE STATUS: FULL CODE PROPHYLAXIS & DISPOSITION PER PRIMARY TEAM
[2019-05-02] MEDS: Polyethylene Glycol 3350 Powder 17 GM Packet PO SCH (15:24)
[2019-05-02] MEDS ORDERED: Potassium Chloride 20 MEQ Tab.ER PO ONE (19:38)
[2019-05-02] MEDS ORDERED: Magnesium Oxide 400 MG Tab PO ONE (19:41)
[2019-05-02] MEDS ORDERED: Sodium Chloride 0.9% 10 ML Syringe FLUSH SCH (21:00)
[2019-05-03] MEDS: Acetaminophen/Codeine 300-30 MG Tab PO PRN ×5 (00:22→23:31)
[2019-05-03] MEDS: Simethicone 80 MG Tab.Chew PO PRN ×2 (04:04→12:16)
--- NOTE | 2019-05-03 13:26 | PCM.PN ---
- General Info Date of Service: 05/02/19 Subjective Update: Feeling better Tolerating clear liquid diet Ambulating BM today - Patient Data Weight - Most Recent: 91.314 kg - Exam General: Alert, Oriented, Cooperative, No Acute Distress HEENT: Pupils Equal, Pupils Reactive, Mucous Membr. Moist/[place] Neck: Supple Lungs: Clear to Auscultation, Normal Respiratory Effort. No: Crackles, Rales, Rhonchi, Wheezing Cardiovascular: Regular Rate, Regular Rhythm. No: Murmurs, Gallops, Rubs GI/Abdominal Exam: Normal Bowel Sounds, Soft, Non-Tender. No: Guarding, Rigid Extremities: Normal Inspection Sepsis Event Note - Evaluation Sepsis Screening Result: No Definite Risk - Focused Exam Vital Signs: Vital Signs Temp Temp Pulse Pulse Resp BP BP 05/03/19 12:44 98.2 F 107 H 14 118/64 05/03/19 08:44 97.5 F 94 15 112/55 L 05/03/19 04:00 98.0 F 78 15 118/78 05/03/19 03:57 98.1 F 100 16 118/74 Pulse Ox 05/03/19 12:44 97 05/03/19 08:44 97 05/03/19 04:00 100 05/03/19 03:57 98 Date Exam was Performed: 05/03/19 Time Exam was Performed: 13:26 - Problem List & Annotations (1) Acute pancreatitis SNOMED Code(s): 076650453 Code(s): K85.90 - ACUTE PANCREATITIS WITHOUT NECROSIS OR INFECTION, UNSP Status: Acute Current Visit: Yes (2) 33 weeks gestation of SNOMED Code(s): 37247369 Code(s): Z3A.33 - 33 WEEKS GESTATION OF Status: Acute Current Visit: Yes (3) Hypomagnesemia SNOMED Code(s): 478449217 Code(s): E83.42 - HYPOMAGNESEMIA Status: Acute Current Visit: Yes (4) Hypophosphatemia SNOMED Code(s): 0592239 Code(s): E83.39 - OTHER DISORDERS OF PHOSPHORUS METABOLISM Status: Acute Current Visit: Yes (5) Hypokalemia SNOMED Code(s): 06560604 Code(s): E87.6 - HYPOKALEMIA Status: Acute Current Visit: Yes - Problem List Review Problem List Initiated/Reviewed/Updated: No - Plan Plan:: Acute pancreatitis Patient came in with severe abdominal pain Previous cholecystectomy in 2010 with negative MRCP Admitted for supportive care Pain controlled Tolerating ice chips today PLAN - Discontinue - Tylenol #3 and morphine for pain, avoid morphine as much as possible Hypomagnesemia/Hypophosphatemia/Hypokalemia Potassium has been replaced with IVF for 3 days Magnesium and phosphate level today significantly low PLAN - Magnesium oxide 400mg - KCL 40meq 33 weeks gestation of Primary team to follow No distress or any changes as per nursing CODE STATUS: FULL CODE PROPHYLAXIS & DISPOSITION PER PRIMARY TEAM
[2019-05-03] MEDS: Polyethylene Glycol 3350 Powder 17 GM Packet PO SCH (14:02)
[2019-05-03] MEDS: Pantoprazole 40 MG Tab.CR PO SCH (14:05)
--- NOTE | 2019-05-03 14:34 | PCM.PN ---
- General Info Date of Service: 05/03/18 Admission Dx/Problem (Free Text): Patient Status Order with Admit Dx/Problem 04/28/19 17:21 Patient Status [ADT] Routine Admission Diagnosis/Problem Admission Diagnosis/Problem Acute pancreatitis Subjective Update: Patient is having less RUQ and epigastric pain, but still having right flank pain, and has only been using 1 of the tylenol #3 which has been totally relieving her pain. She is having pain more on the LUQ and left side of her abdomen since yesterday and that has persisted today. She did have a small BM yesterday and has been passing gas when she goes to the bathroom. Simethicone has been helping some with that discomfort. She has been ambulating and doing her IS. She says that it hurts in the left abdomen when she takes deep breaths , but advised her to do her best despite the pain. She has been tolerating clear fluids without abdominal pain, but tried cream of wheat this morning and that did cause some pain. She continues to be afebrile. Urine output has still been averaging about 125 ml/hour. She states baby has been active and denies feeling contractions. NST today is reactive. Labs today still show elevated WBC and mild anemia that is stable. She still has an anion gap and hospitalist has ordered ABG and blood ketones today. Her mag and phosphorous levels are down again. Discussed with her and she is considering doing a CT abdomen to further evaluate the pancreas, looking for a complication contributing to the abnormal labs. Functional Status: Reports: Pain Controlled, Tolerating Diet (Tolerating clear fluids), Ambulating, Urinating, Incentive Spirometry - Review of Systems General: Reports: No Symptoms HEENT: Reports: No Symptoms Pulmonary: Reports: No Symptoms Cardiovascular: Reports: No Symptoms Gastrointestinal: Reports: Abdominal Pain (mostly left sided today), Flatus Genitourinary: Reports: No Symptoms Musculoskeletal: Reports: No Symptoms Skin: Reports: No Symptoms Neurological: Reports: No Symptoms Psychiatric: Reports: No Symptoms - Patient Data Vitals - Most Recent: Last Vital Signs Temp 36.8 C 05/03/19 12:44 Pulse 107 H 05/03/19 12:44 Resp 14 05/03/19 12:44 BP 118/64 05/03/19 12:44 Pulse Ox 97 05/03/19 12:44 Weight - Most Recent: 91.314 kg I&O - Last 24 Hours: Intake & Output 05/02/19 05/03/19 05/03/19 22:59 06:59 14:59 Intake Total 2360 Output Total 701 1150 600 Balance 1659 -1150 -600 Lab Results Last 24 Hours: Laboratory Results - last 24 hr 05/03/19 05/03/19 05/03/19 Range/Units 01:25 01:25 05:08 WBC 15.45 H (3.98-10.04) K/mm3 RBC 3.43 L (3.98-5.22) M/mm3 Hgb 10.6 L (11.2-15.7) gm/dl Hct 33.0 L (34.1-44.9) % MCV 96.2 H (79.4-94.8) fl MCH 30.9 (25.6-32.2) pg MCHC 32.1 L (32.2-35.5) g/dl RDW Std Deviation 46.9 H (36.4-46.3) fL Plt Count 324 (182-369) K/mm3 MPV 9.8 (9.4-12.3) fl Neut % (Auto) 78.3 H (34.0-71.1) % Lymph % (Auto) 10.0 L (19.3-51.7) % [place] % (Auto) 9.4 (4.7-12.5) % Eos % (Auto) 1.9 (0.7-5.8) Baso % (Auto) 0.1 (0.1-1.2) % Neut # (Auto) 12.10 H (1.56-6.13) K/mm3 Lymph # (Auto) 1.54 (1.18-3.74) K/mm3 [place] # (Auto) 1.46 H (0.24-0.36) K/mm3 Eos # (Auto) 0.30 (0.04-0.36) K/mm3 Baso # (Auto) 0.01 (0.01-0.08) K/mm3 Puncture Site ABG pH (7.35-7.45) ABG pCO2 (35.0-45.0) mmHg ABG pO2 (80.0-100.0) mmHg ABG HCO3 (22.0-26.0) meq/L ABG O2 Saturation (96.0-97.0) % ABG Base Excess (-2-2.0) Mo Test A-a Gradient mmHg O2 Delivery Device Oxygen Flow Rate FiO2 (21.00-100.00) % Sodium (136-145) mEq/L Potassium (3.5-5.1) mEq/L Chloride (98-107) mEq/L Carbon Dioxide (21-32) mEq/L Anion Gap (5-15) BUN (7-18) mg/dL Creatinine (0.55-1.02) mg/dL Est Cr Clr Drug Dosing mL/min Estimated GFR (MDRD) (>60) mL/min BUN/Creatinine Ratio (14-18) Glucose (74-106) mg/dL Lactic Acid 1.0 (0.4-2.0) mmol/L Calcium (8.5-10.1) mg/dL Phosphorus (2.6-4.7) mg/dL Magnesium (1.8-2.4) mg/dl Triglycerides (<150) mg/dL Cholesterol (<200) mg/dL LDL Cholesterol Direct (<100) mg/dL HDL Cholesterol (40-59) mg/dL Ketones 0.33 (0.0-0.3) mM 05/03/19 05/03/19 Range/Units 05:08 13:25 WBC (3.98-10.04) K/mm3 RBC (3.98-5.22) M/mm3 Hgb (11.2-15.7) gm/dl Hct (34.1-44.9) % MCV (79.4-94.8) fl MCH (25.6-32.2) pg MCHC (32.2-35.5) g/dl RDW Std Deviation (36.4-46.3) fL Plt Count (182-369) K/mm3 MPV (9.4-12.3) fl Neut % (Auto) (34.0-71.1) % Lymph % (Auto) (19.3-51.7) % [place] % (Auto) (4.7-12.5) % Eos % (Auto) (0.7-5.8) Baso % (Auto) (0.1-1.2) % Neut # (Auto) (1.56-6.13) K/mm3 Lymph # (Auto) (1.18-3.74) K/mm3 [place] # (Auto) (0.24-0.36) K/mm3 Eos # (Auto) (0.04-0.36) K/mm3 Baso # (Auto) (0.01-0.08) K/mm3 Puncture Site Lt radial ABG pH 7.42 (7.35-7.45) ABG pCO2 28.6 L (35.0-45.0) mmHg ABG pO2 80.0 (80.0-100.0) mmHg ABG HCO3 18.1 L (22.0-26.0) meq/L ABG O2 Saturation 96.9 (96.0-97.0) % ABG Base Excess -4.9 L (-2-2.0) Mo Test Positive A-a Gradient 34 mmHg O2 Delivery Device Room air Oxygen Flow Rate 0.0 FiO2 21.00 (21.00-100.00) % Sodium 138 (136-145) mEq/L Potassium 3.7 (3.5-5.1) mEq/L Chloride 106 (98-107) mEq/L Carbon Dioxide 18 L (21-32) mEq/L Anion Gap 17.7 H (5-15) BUN 6 L (7-18) mg/dL Creatinine 0.5 L (0.55-1.02) mg/dL Est Cr Clr Drug Dosing 144.65 mL/min Estimated GFR (MDRD) > 60 (>60) mL/min BUN/Creatinine Ratio 12.0 L (14-18) Glucose 71 L (74-106) mg/dL Lactic Acid (0.4-2.0) mmol/L Calcium 8.6 (8.5-10.1) mg/dL Phosphorus 2.4 L (2.6-4.7) mg/dL Magnesium 1.6 L (1.8-2.4) mg/dl Triglycerides 221 H (<150) mg/dL Cholesterol 124 (<200) mg/dL LDL Cholesterol Direct 63 (<100) mg/dL HDL Cholesterol 28.0 L (40-59) mg/dL Ketones (0.0-0.3) mM Med Orders - Current: Current Medications Acetaminophen/Codeine Phosphate (Tylenol With Codeine No.3 300mg/30mg) 1 tab PO Q4H PRN PRN Reason: Pain Last Admin: 05/03/19 14:02 Dose: 1 tab Bisacodyl (Dulcolax) 10 mg RECTAL DAILY PRN PRN Reason: Constipation Last Admin: 05/02/19 15:24 Dose: 10 mg Famotidine (Pepcid) 20 mg IV Q12H PRN PRN Reason: Heartburn Last Admin: 05/01/19 09:46 Dose: 20 mg Morphine Sulfate (Morphine) 2 mg IVPUSH Q4H PRN PRN Reason: Pain Last Admin: 05/02/19 14:26 Dose: 2 mg Ondansetron HCl (Zofran) 4 mg IV Q4H PRN PRN Reason: Nausea/Vomiting Last Admin: 04/29/19 11:06 Dose: 4 mg Pantoprazole Sodium (Protonix) 40 mg PO DAILY MELVIN Last Admin: 05/02/19 09:50 Dose: 40 mg Polyethylene Glycol (Miralax) 17 gm PO DAILY MELVIN Last Admin: 05/03/19 14:02 Dose: 17 gm Senna/Docusate Sodium (Senna Plus) 2 tab PO BEDTIME MELVIN Last Admin: 05/02/19 21:33 Dose: 2 tab Simethicone (Simethicone) 80 mg PO Q4H PRN PRN Reason: Gas Last Admin: 05/03/19 12:16 Dose: 80 mg Sodium Chloride (Saline Flush) 0 ml FLUSH Q12HR MELVIN Discontinued Medications Acetaminophen/Codeine Phosphate (Tylenol With Codeine No.3 300mg/30mg) 2 tab PO Q6H PRN PRN Reason: Pain Last Admin: 05/02/19 18:08 Dose: 2 tab Al Hydroxide/Mg Hydroxide 30 (ml/ Lidocaine HCl 15 ml) 0 ml PO ONETIME ONE Stop: 04/28/19 18:55 Last Admin: 04/28/19 19:29 Dose: 45 ml Famotidine (Pepcid) 20 mg IVPUSH ONETIME ONE Stop: 04/28/19 18:50 Last Admin: 04/28/19 19:30 Dose: 20 mg Fentanyl (Sublimaze) 25 mcg IVPUSH Q1H PRN PRN Reason: Abdominal Pain Last Admin: 04/29/19 01:43 Dose: 25 mcg Fentanyl (Sublimaze) 50 mcg IVPUSH Q1H PRN PRN Reason: Abdominal Pain Last Admin: 04/29/19 09:26 Dose: 50 mcg Hydromorphone HCl (Dilaudid) 0.25 mg IVPUSH Q1H PRN PRN Reason: Abdominal Pain Last Admin: 05/01/19 08:59 Dose: 0.25 mg Lactated Ringer's (Ringers, Lactated) 1,000 mls @ 999 mls/hr IV .BOLUS ONE Stop: 04/28/19 19:50 Last Admin: 04/28/19 19:30 Dose: 999 mls/hr Lactated Ringer's (Ringers, Lactated) 1,000 mls @ 200 mls/hr IV ASDIRECTED [facility] Last Admin: 04/29/19 06:06 Dose: 200 mls/hr Potassium Chloride/Sodium Chloride (Normal Saline With 20 Meq Kcl) 1,000 mls @ 125 mls/hr IV ASDIRECTED [facility] Last Admin: 04/29/19 10:57 Dose: 125 mls/hr Potassium Chloride/Dextrose/Sod Cl (D5 1/2 Ns W/ 20 Meq/L Kcl) 1,000 mls @ 100 mls/hr IV ASDIRECTED [facility] Last Admin: 05/01/19 03:05 Dose: 100 mls/hr Acetaminophen (Ofirmev) 100 mls @ 400 mls/hr IV Q6HR PRN PRN Reason: Pain Stop: 05/02/19 12:15 Acetaminophen (Ofirmev) 100 mls @ 400 mls/hr IV Q6H PRN PRN Reason: Pain Stop: 05/02/19 12:15 Acetaminophen (Ofirmev) 65 mls @ 400 mls/hr IV Q4H PRN PRN Reason: Pain Stop: 05/02/19 13:55 Last Admin: 05/01/19 14:07 Dose: 260 mls/hr Lactated Ringer's (Ringers, Lactated) 1,000 mls @ 125 mls/hr IV ASDIRECTED [facility] Stop: 05/01/19 21:54 Last Infusion: 05/01/19 22:35 Dose: 75 mls/hr Magnesium Sulfate 4 gm/ Premix 50 mls @ 12.5 mls/hr IV ONETIME ONE Stop: 05/01/19 18:29 Last Admin: 05/01/19 14:43 Dose: 12.5 mls/hr Potassium Phosphate 30 mmole/ (Sodium Chloride) 260 mls @ 52 mls/hr IV ONETIME ONE Stop: 05/01/19 19:29 Last Admin: 05/01/19 14:42 Dose: 52 mls/hr Sodium Chloride (Normal Saline) 500 mls @ 100 mls/hr IV ASDIRECTED [facility] Last Admin: 05/01/19 15:04 Dose: 100 mls/hr Lactated Ringer's (Ringers, Lactated) 1,000 mls @ 75 mls/hr IV ASDIRECTED [facility] Last Admin: 05/02/19 18:24 Dose: 75 mls/hr Magnesium Oxide (Magnesium Oxide) 400 mg PO ONETIME ONE Stop: 05/02/19 19:42 Last Admin: 05/02/19 21:33 Dose: 400 mg Morphine Sulfate (Morphine) 1 mg IVPUSH Q2H PRN PRN Reason: Pain Last Admin: 05/01/19 14:03 Dose: 1 mg Potassium Chloride (Klor-Con M20) 40 meq PO ONETIME ONE Stop: 04/29/19 07:22 Last Admin: 04/29/19 09:28 Dose: 40 meq Potassium Chloride (Klor-Con M20) 20 meq PO DAILY [facility] Last Admin: 05/02/19 15:27 Dose: 20 meq Potassium Chloride (Klor-Con M20) 40 meq PO ONETIME ONE Stop: 05/02/19 19:39 Last Admin: 05/02/19 21:33 Dose: 40 meq Sodium Chloride (Saline Flush) 10 ml FLUSH Q12HR [facility] Last Admin: 05/02/19 21:34 Dose: Not Given - Exam General: Alert, Oriented, Cooperative, No Acute Distress HEENT: Pupils Equal, Mucous Membr. Moist/[place] Neck: Supple Lungs: Normal Respiratory Effort, Decreased Breath Sounds (Decreased to bases) Cardiovascular: Regular Rate, Regular Rhythm GI/Abdominal Exam: Tender (Not tender in RUQ and epigastric area today, but tender left upper quadrant), Abnormal Bowel Sounds (decreased bowel sounds) (Female) Exam: Enlarged Uterus (uterus is soft and non tender), Heart Tones (NST reactive, baseline 140, moderate variability) Back Exam: Normal Inspection, Full Range of Motion Extremities: Normal Inspection, Normal Range of Motion, No Pedal Edema Skin: Warm, Dry, Intact Neurological: No New Focal Deficit Psy/Mental Status: Alert, Normal Affect, Normal Mood Sepsis Event Note - Evaluation Sepsis Screening Result: No Definite Risk - Focused Exam Vital Signs: Vital Signs Temp Temp Pulse Pulse Resp BP BP 05/03/19 12:44 36.8 C 107 H 14 118/64 05/03/19 08:44 36.4 C 94 15 112/55 L 05/03/19 04:00 36.7 C 78 15 118/78 05/03/19 03:57 36.7 C 100 16 118/74 Pulse Ox 05/03/19 12:44 97 05/03/19 08:44 97 05/03/19 04:00 100 05/03/19 03:57 98 Date Exam was Performed: 05/03/19 Time Exam was Performed: 14:28 - Problem List & Annotations (1) Acute pancreatitis SNOMED Code(s): 621685586 Code(s): K85.90 - ACUTE PANCREATITIS WITHOUT NECROSIS OR INFECTION, UNSP Status: Acute Current Visit: Yes (2) 33 weeks gestation of SNOMED Code(s): 09342456 Code(s): Z3A.33 - 33 WEEKS GESTATION OF Status: Acute Current Visit: Yes (3) Status post cholecystectomy SNOMED Code(s): 458347495, 14490654, 929292094 Code(s): Z90.49 - ACQUIRED ABSENCE OF OTHER SPECIFIED PARTS OF DIGESTIVE TRACT Status: Acute Current Visit: Yes (4) GERD (gastroesophageal reflux disease) SNOMED Code(s): 317256261 Code(s): K21.9 - GASTRO-ESOPHAGEAL REFLUX DISEASE WITHOUT ESOPHAGITIS Status: Acute Current Visit: Yes (5) Hypokalemia SNOMED Code(s): 16246148 Code(s): E87.6 - HYPOKALEMIA Status: Acute Current Visit: Yes (6) Hypomagnesemia SNOMED Code(s): 307834669 Code(s): E83.42 - HYPOMAGNESEMIA Status: Acute Current Visit: Yes - Problem List Review Problem List Initiated/Reviewed/Updated: Yes - My Orders Last 24 Hours: My Active Orders 05/02/19 13:39 bisacodyL [Dulcolax] 10 mg RECTAL DAILY PRN 05/02/19 13:45 Polyethylene Glycol 3350 [MiraLAX] 17 gm PO DAILY 05/02/19 21:00 Docusate Sodium/Sennosides [Senna Plus] 2 tab PO BEDTIME - Assessment Assessment:: Assessment and plan 1. Acute pancreatitis - WBC is still elevated at 15 with left shift. Afebrile. She still has an anion gap. Pain is controlled mostly with PO tylenol #3, now only using 1 every 4 to 6 hours. She had 1mg of IV morphine yesterday afternoon after waiting too long to get her po tylenol #3. Continue IS and encourage ambulation. Tolerating clear fluids, no nausea and no increased pain with po fluids. She did have some increased pain with cream of wheat this am. MRI abdomen was done and no sludge or stone in CBD noted, no pseudocyst or necrosis of pancreas. Inflammation of pancreas consistent with pancreatitis and some ascites. D/W hospitalist this afternoon and further testing related to the anion gap and persistent WBC elevation. Consider CT abdomen today looking for complications with the pancreas. 2. Fluid status -Continues to have good urine output with average 125 mL/h. Creatinine and BUN stable. She is taking PO fluids now and tolerating. Continue to monitor urine output. BP and pulse stable. 3. GERD - on IV Pepcid q 12 hour and po pantoprazole. 4. Hypokalemia - K+ today 3.7. Mag level is 1.6, PO4 down again to 2.4. Started PO KCl 20 mEq daily yesterday. 5. Ileus - had small BM yesterday and passing some gas. Will continue Miralax daily, prn dulcolax supp. Continue Senekot-S nightly to help counteract the narcotic effect on the bowel. Encourage ambulation. Simethicone as needed for gas pains. 5. at 34 +2 weeks - NST is reactive. No contractions today. Will continue to monitor. Jessica Harris MD [id number] 05/12/19 - Plan Plan:: Acute pancreatitis Patient came in with severe abdominal pain Previous cholecystectomy in 2010 with negative MRCP Admitted for supportive care Pain controlled Tolerating ice chips today PLAN - Discontinue - Tylenol #3 and morphine for pain, avoid morphine as much as possible Hypomagnesemia/Hypophosphatemia/Hypokalemia Potassium has been replaced with IVF for 3 days Magnesium and phosphate level today significantly low PLAN - Magnesium oxide 400mg - KCL 40meq 33 weeks gestation of Primary team to follow No distress or any changes as per nursing CODE STATUS: FULL CODE PROPHYLAXIS & DISPOSITION PER PRIMARY TEAM
[2019-05-03] MEDS ORDERED: Lactated Ringers 1,000 ML IV STA (16:01)
[2019-05-03] MEDS ORDERED: Magnesium Sulfate/Water 4 GM in Premix Bag 1 BAG IV STA (16:01)
[2019-05-03] MEDS ORDERED: Lactated Ringers 1,000 ML IV SCH (16:15)
[2019-05-03] MEDS ORDERED: Trolamine Salicylate/Aloe Vera 10% Crm 85 GM Tube TOP PRN (17:38)
--- NOTE | 2019-05-03 17:42 | PCM.PN ---
- General Info Date of Service: 05/03/19 Subjective Update: Feeling better Still having pain after eating some foods, tried cream of wheat this AM and started having pain for which she stopped - Patient Data Vitals - Most Recent: Last Vital Signs Temp 97.9 F 05/03/19 17:00 Pulse 95 05/03/19 17:00 Resp 18 05/03/19 17:00 BP 124/67 05/03/19 17:00 Pulse Ox 98 05/03/19 17:00 Weight - Most Recent: 91.314 kg - Exam General: Alert, Oriented, Cooperative, Mild Distress HEENT: Pupils Equal, Pupils Reactive, Mucous Membr. Moist/[place] Neck: Supple, Trachea Midline, No JVD Lungs: Clear to Auscultation, Normal Respiratory Effort. No: Crackles, Rales, Rhonchi, Wheezing Cardiovascular: Regular Rate, Regular Rhythm. No: Murmurs, Gallops, Rubs GI/Abdominal Exam: Soft, Other (exquisite tenderness on left upper flank) Extremities: Normal Inspection, Normal Range of Motion Sepsis Event Note - Evaluation Sepsis Screening Result: No Definite Risk - Focused Exam Vital Signs: Vital Signs Temp Pulse Resp BP Pulse Ox 05/03/19 17:00 97.9 F 95 18 124/67 98 05/03/19 12:44 98.2 F 107 H 14 118/64 97 05/03/19 08:44 97.5 F 94 15 112/55 L 97 Date Exam was Performed: 05/03/19 Time Exam was Performed: 17:37 - Problem List & Annotations (1) Acute pancreatitis SNOMED Code(s): 149154826 Code(s): K85.90 - ACUTE PANCREATITIS WITHOUT NECROSIS OR INFECTION, UNSP Status: Acute Current Visit: Yes (2) 33 weeks gestation of SNOMED Code(s): 76140197 Code(s): Z3A.33 - 33 WEEKS GESTATION OF Status: Acute Current Visit: Yes (3) Hypomagnesemia SNOMED Code(s): 625386615 Code(s): E83.42 - HYPOMAGNESEMIA Status: Acute Current Visit: Yes (4) Hypophosphatemia SNOMED Code(s): 6027811 Code(s): E83.39 - OTHER DISORDERS OF PHOSPHORUS METABOLISM Status: Acute Current Visit: Yes (5) Hypokalemia SNOMED Code(s): 12054105 Code(s): E87.6 - HYPOKALEMIA Status: Acute Current Visit: Yes (6) High anion gap metabolic acidosis SNOMED Code(s): 32654262 Code(s): E87.2 - ACIDOSIS Status: Acute Current Visit: Yes (7) Hypertriglyceridemia SNOMED Code(s): 421703322 Code(s): E78.1 - PURE HYPERGLYCERIDEMIA Status: Acute Current Visit: Yes - Problem List Review Problem List Initiated/Reviewed/Updated: Yes - Plan Plan:: Acute pancreatitis Patient came in with severe abdominal pain Previous cholecystectomy in 2010 with negative MRCP Admitted for supportive care Pain controlled Patient continues to have intermittent pain and is unable to tolerate full liquid diet, on physical exam she has exquisite tenderness over the upper left flank will start Aspercreme to rule out superficial pain If bloos work continues to be abdomal and patient is still unable to tolerate po will do abdominal CT in the AM PLAN - Advance diet as tolerated - Aspercreme on flank - Tylenol #3 and morphine for pain, avoid morphine as much as possible High anion gap metabolic acidosis Hypomagnesemia/Hypophosphatemia/Hypokalemia Potassium has been replaced with IVF for 3 days Magnesium and phosphate level today significantly low PLAN - LR bolus - Magnesium 4g supplementation - KCL 40meq Hypertriglyceridemia Concern for hypertriglyceridemia pancreatitis ruled out TG count 221 PLAN - recommend diet and lifestyle modifications as an outpatient upon discharge 33 weeks gestation of Primary team to follow No distress or any changes as per nursing CODE STATUS: FULL CODE PROPHYLAXIS & DISPOSITION PER PRIMARY TEAM
[2019-05-03] MEDS: Sodium Chloride 0.9% 10 ML Syringe FLUSH SCH ×2 (17:43→23:18)
[2019-05-03] MEDS ORDERED: Menthol/Methyl Salicylate 29 GM Tube TOP PRN (18:08)
[2019-05-03] MEDS: Lidocaine 4% 1 each Patch TOP SCH ×2 (18:25→18:53)
[2019-05-03] MEDS: Lactated Ringers 1,000 ML IV SCH (23:40)
[2019-05-04] MEDS: Morphine 2 MG/ML Syringe IVPUSH PRN ×2 (03:21→14:28)
[2019-05-04] MEDS: Acetaminophen/Codeine 300-30 MG Tab PO PRN ×3 (06:14→23:32)
[2019-05-04] MEDS: Simethicone 80 MG Tab.Chew PO PRN (06:56)
[2019-05-04] MEDS: Lactated Ringers 1,000 ML IV SCH ×2 (07:24→15:40)
[2019-05-04] MEDS ORDERED: Menthol/Methyl Salicylate 85 GM Tube TOP PRN (07:27)
[2019-05-04] MEDS ORDERED: Trolamine Salicylate/Aloe Vera 10% Crm 85 GM Tube TOP PRN (07:31)
[2019-05-04] MEDS: Sodium Chloride 0.9% 10 ML Syringe FLUSH SCH (09:11)
--- NOTE | 2019-05-04 09:12 | PCM.CONSN ---
- General Info Date of Service: 05/04/19 Admission Dx/Problem (Free Text): Patient Status Order with Admit Dx/Problem 04/28/19 17:21 Patient Status [ADT] Routine Admission Diagnosis/Problem Admission Diagnosis/Problem Acute pancreatitis Subjective Update: In to see Kelsie. She reports pain is more lateral left flank now radiating to left costal margin. She tried some cream of wheat again and watered it down, which helped but it didn't go very well. Her electrolytes were abnormal again and were supplemented. Discussed further imaging with Dr. Red and Dr. Cassidy, will obtain repeat abdominal MRI to look for stability. WBC is down today. Nursing reports patient appears more comfortable than in days past but patient reports pain is about the same. She did receive one dose of IVP morphine overnight. Last PO pain med was around 6am. Functional Status: Reports: Ambulating, Urinating. Denies: Pain Controlled, Tolerating Diet - Review of Systems General: Reports: No Symptoms, Weakness, Fatigue. Denies: Fever, Malaise, Chills HEENT: Reports: No Symptoms. Denies: Sore Throat Pulmonary: Reports: No Symptoms. Denies: Shortness of Breath, Pleuritic Chest Pain, Cough, Sputum Cardiovascular: Reports: No Symptoms. Denies: Chest Pain, Palpitations, Dyspnea on Exertion, Edema Gastrointestinal: Reports: Abdominal Pain (Left flank radiating to LUQ). Denies : Constipation, Diarrhea, Nausea, Vomiting Genitourinary: Reports: No Symptoms. Denies: Pain Musculoskeletal: Reports: No Symptoms Skin: Reports: No Symptoms. Denies: Cyanosis Neurological: Reports: No Symptoms. Denies: Confusion, Pre-Existing Deficit, Difficulty Walking, Gait Disturbance Psychiatric: Reports: No Symptoms - Patient Data Vitals - Most Recent: Last Vital Signs Temp 97.5 F 05/04/19 03:27 Pulse 103 H 05/04/19 03:27 Resp 20 05/04/19 03:27 BP 123/63 05/04/19 03:27 Pulse Ox 96 05/04/19 03:27 Weight - Most Recent: 201 lb 5 oz I&O - Last 24 Hours: Intake & Output 05/03/19 05/04/19 05/04/19 22:59 06:59 14:59 Intake Total 2220 800 Output Total 1500 2100 Balance 720 -1300 Lab Results Last 24 Hours: Laboratory Results - last 24 hr 05/03/19 05/03/19 05/03/19 Range/Units 01:25 01:25 13:25 WBC (3.98-10.04) K/mm3 RBC (3.98-5.22) M/mm3 Hgb (11.2-15.7) gm/dl Hct (34.1-44.9) % MCV (79.4-94.8) fl MCH (25.6-32.2) pg MCHC (32.2-35.5) g/dl RDW Std Deviation (36.4-46.3) fL Plt Count (182-369) K/mm3 MPV (9.4-12.3) fl Neutrophils % (Manual) (40-60) % Band Neutrophils % (0-10) % Lymphocytes % (Manual) (20-40) % Atypical Lymphs % % Monocytes % (Manual) (2-10) % Eosinophils % (Manual) (0.7-5.8) % Basophils % (Manual) (0.1-1.2) Platelet Estimate RBC Morph Comment Puncture Site Lt radial ABG pH 7.42 (7.35-7.45) ABG pCO2 28.6 L (35.0-45.0) mmHg ABG pO2 80.0 (80.0-100.0) mmHg ABG HCO3 18.1 L (22.0-26.0) meq/L ABG O2 Saturation 96.9 (96.0-97.0) % ABG Base Excess -4.9 L (-2-2.0) Mo Test Positive A-a Gradient 34 mmHg O2 Delivery Device Room air Oxygen Flow Rate 0.0 FiO2 21.00 (21.00-100.00) % Sodium (136-145) mEq/L Potassium (3.5-5.1) mEq/L Chloride (98-107) mEq/L Carbon Dioxide (21-32) mEq/L Anion Gap (5-15) BUN (7-18) mg/dL Creatinine (0.55-1.02) mg/dL Est Cr Clr Drug Dosing mL/min Estimated GFR (MDRD) (>60) mL/min BUN/Creatinine Ratio (14-18) Glucose (74-106) mg/dL Lactic Acid 1.0 (0.4-2.0) mmol/L Calcium (8.5-10.1) mg/dL Phosphorus (2.6-4.7) mg/dL Magnesium (1.8-2.4) mg/dl Total Bilirubin (0.2-1.0) mg/dL AST (15-37) U/L ALT (14-59) U/L Alkaline Phosphatase (46-116) U/L Total Protein (6.4-8.2) g/dl Albumin (3.4-5.0) g/dl Globulin gm/dL Albumin/Globulin Ratio (1-2) Ketones 0.33 (0.0-0.3) mM 05/04/19 05/04/19 Range/Units 06:05 06:05 WBC 13.66 H (3.98-10.04) K/mm3 RBC 3.36 L (3.98-5.22) M/mm3 Hgb 10.3 L (11.2-15.7) gm/dl Hct 32.2 L (34.1-44.9) % MCV 95.8 H (79.4-94.8) fl MCH 30.7 (25.6-32.2) pg MCHC 32.0 L (32.2-35.5) g/dl RDW Std Deviation 46.6 H (36.4-46.3) fL Plt Count 341 (182-369) K/mm3 MPV 9.3 L (9.4-12.3) fl Neutrophils % (Manual) 77 H (40-60) % Band Neutrophils % 0 (0-10) % Lymphocytes % (Manual) 13 L (20-40) % Atypical Lymphs % 0 % Monocytes % (Manual) 8 (2-10) % Eosinophils % (Manual) 2 (0.7-5.8) % Basophils % (Manual) 0 L (0.1-1.2) Platelet Estimate Adequate RBC Morph Comment Normal Puncture Site ABG pH (7.35-7.45) ABG pCO2 (35.0-45.0) mmHg ABG pO2 (80.0-100.0) mmHg ABG HCO3 (22.0-26.0) meq/L ABG O2 Saturation (96.0-97.0) % ABG Base Excess (-2-2.0) Mo Test A-a Gradient mmHg O2 Delivery Device Oxygen Flow Rate FiO2 (21.00-100.00) % Sodium 138 (136-145) mEq/L Potassium 3.3 L (3.5-5.1) mEq/L Chloride 106 (98-107) mEq/L Carbon Dioxide 20 L (21-32) mEq/L Anion Gap 15.3 H (5-15) BUN 6 L (7-18) mg/dL Creatinine 0.4 L (0.55-1.02) mg/dL Est Cr Clr Drug Dosing 180.81 mL/min Estimated GFR (MDRD) > 60 (>60) mL/min BUN/Creatinine Ratio 15.0 (14-18) Glucose 72 L (74-106) mg/dL Lactic Acid (0.4-2.0) mmol/L Calcium 8.3 L (8.5-10.1) mg/dL Phosphorus 2.6 (2.6-4.7) mg/dL Magnesium 1.7 L (1.8-2.4) mg/dl Total Bilirubin 0.6 (0.2-1.0) mg/dL AST 18 (15-37) U/L ALT 14 (14-59) U/L Alkaline Phosphatase 115 (46-116) U/L Total Protein 5.8 L (6.4-8.2) g/dl Albumin 2.0 L (3.4-5.0) g/dl Globulin 3.8 gm/dL Albumin/Globulin Ratio 0.5 L (1-2) Ketones (0.0-0.3) mM Med Orders - Current: Current Medications Acetaminophen/Codeine Phosphate (Tylenol With Codeine No.3 300mg/30mg) 1 tab PO Q4H PRN PRN Reason: Pain Last Admin: 05/04/19 06:14 Dose: 1 tab Bisacodyl (Dulcolax) 10 mg RECTAL DAILY PRN PRN Reason: Constipation Last Admin: 05/02/19 15:24 Dose: 10 mg Famotidine (Pepcid) 20 mg IV Q12H PRN PRN Reason: Heartburn Last Admin: 05/01/19 09:46 Dose: 20 mg Lactated Ringer's (Ringers, Lactated) 1,000 mls @ 125 mls/hr IV ASDIRECTED MELVIN Last Admin: 05/04/19 07:24 Dose: 125 mls/hr Lidocaine (Aspercreme 4%) 1 each TOP DAILY [facility] Last Admin: 05/03/19 18:25 Dose: 1 each Methyl Salicylate (Icy Hot Cream) 0 gm TOP Q2HR PRN PRN Reason: Pain Miscellaneous Information (Remove Patch) 1 ea TRDERM BEDTIME [facility] Last Admin: 05/04/19 03:20 Dose: 1 ea Morphine Sulfate (Morphine) 2 mg IVPUSH Q4H PRN PRN Reason: Pain Last Admin: 05/04/19 03:21 Dose: 2 mg Ondansetron HCl (Zofran) 4 mg IV Q4H PRN PRN Reason: Nausea/Vomiting Last Admin: 04/29/19 11:06 Dose: 4 mg Pantoprazole Sodium (Protonix) 40 mg PO DAILY [facility] Last Admin: 05/03/19 14:05 Dose: 40 mg Polyethylene Glycol (Miralax) 17 gm PO DAILY [facility] Last Admin: 05/03/19 14:02 Dose: 17 gm Senna/Docusate Sodium (Senna Plus) 2 tab PO BEDTIME [facility] Last Admin: 05/03/19 23:31 Dose: 2 tab Simethicone (Simethicone) 80 mg PO Q4H PRN PRN Reason: Gas Last Admin: 05/04/19 06:56 Dose: 80 mg Sodium Chloride (Saline Flush) 0 ml FLUSH Q12HR [facility] Last Admin: 05/04/19 09:11 Dose: Not Given Trolamine Salicylate (Aspercreme 10%) 0 gm TOP Q1H PRN PRN Reason: Pain in Flank Discontinued Medications Acetaminophen/Codeine Phosphate (Tylenol With Codeine No.3 300mg/30mg) 2 tab PO Q6H PRN PRN Reason: Pain Last Admin: 05/02/19 18:08 Dose: 2 tab Al Hydroxide/Mg Hydroxide 30 (ml/ Lidocaine HCl 15 ml) 0 ml PO ONETIME ONE Stop: 04/28/19 18:55 Last Admin: 04/28/19 19:29 Dose: 45 ml Famotidine (Pepcid) 20 mg IVPUSH ONETIME ONE Stop: 04/28/19 18:50 Last Admin: 04/28/19 19:30 Dose: 20 mg Fentanyl (Sublimaze) 25 mcg IVPUSH Q1H PRN PRN Reason: Abdominal Pain Last Admin: 04/29/19 01:43 Dose: 25 mcg Fentanyl (Sublimaze) 50 mcg IVPUSH Q1H PRN PRN Reason: Abdominal Pain Last Admin: 04/29/19 09:26 Dose: 50 mcg Hydromorphone HCl (Dilaudid) 0.25 mg IVPUSH Q1H PRN PRN Reason: Abdominal Pain Last Admin: 05/01/19 08:59 Dose: 0.25 mg Lactated Ringer's (Ringers, Lactated) 1,000 mls @ 999 mls/hr IV .BOLUS ONE Stop: 04/28/19 19:50 Last Admin: 04/28/19 19:30 Dose: 999 mls/hr Lactated Ringer's (Ringers, Lactated) 1,000 mls @ 200 mls/hr IV ASDIRECTED [facility] Last Admin: 04/29/19 06:06 Dose: 200 mls/hr Potassium Chloride/Sodium Chloride (Normal Saline With 20 Meq Kcl) 1,000 mls @ 125 mls/hr IV ASDIRECTED [facility] Last Admin: 04/29/19 10:57 Dose: 125 mls/hr Potassium Chloride/Dextrose/Sod Cl (D5 1/2 Ns W/ 20 Meq/L Kcl) 1,000 mls @ 100 mls/hr IV ASDIRECTED [facility] Last Admin: 05/01/19 03:05 Dose: 100 mls/hr Acetaminophen (Ofirmev) 100 mls @ 400 mls/hr IV Q6HR PRN PRN Reason: Pain Stop: 05/02/19 12:15 Acetaminophen (Ofirmev) 100 mls @ 400 mls/hr IV Q6H PRN PRN Reason: Pain Stop: 05/02/19 12:15 Acetaminophen (Ofirmev) 65 mls @ 400 mls/hr IV Q4H PRN PRN Reason: Pain Stop: 05/02/19 13:55 Last Admin: 05/01/19 14:07 Dose: 260 mls/hr Lactated Ringer's (Ringers, Lactated) 1,000 mls @ 125 mls/hr IV ASDIRECTED STA Stop: 05/01/19 21:54 Last Infusion: 05/01/19 22:35 Dose: 75 mls/hr Magnesium Sulfate 4 gm/ Premix 50 mls @ 12.5 mls/hr IV ONETIME ONE Stop: 05/01/19 18:29 Last Admin: 05/01/19 14:43 Dose: 12.5 mls/hr Potassium Phosphate 30 mmole/ (Sodium Chloride) 260 mls @ 52 mls/hr IV ONETIME ONE Stop: 05/01/19 19:29 Last Admin: 05/01/19 14:42 Dose: 52 mls/hr Sodium Chloride (Normal Saline) 500 mls @ 100 mls/hr IV ASDIRECTED MELVIN Last Admin: 05/01/19 15:04 Dose: 100 mls/hr Lactated Ringer's (Ringers, Lactated) 1,000 mls @ 75 mls/hr IV ASDIRECTED MELVIN Last Infusion: 05/03/19 17:05 Dose: Infused Lactated Ringer's (Ringers, Lactated) 1,000 mls @ 999 mls/hr IV .BOLUS STA Stop: 05/03/19 17:01 Last Admin: 05/03/19 17:09 Dose: 999 mls/hr Lactated Ringer's (Ringers, Lactated) 1,000 mls @ 100 mls/hr IV ASDIRECTED MELVIN Magnesium Sulfate 4 gm/ Premix 50 mls @ 12.5 mls/hr IV ONETIME STA Stop: 05/03/19 20:00 Last Admin: 05/03/19 17:09 Dose: 12.5 mls/hr Magnesium Oxide (Magnesium Oxide) 400 mg PO ONETIME ONE Stop: 05/02/19 19:42 Last Admin: 05/02/19 21:33 Dose: 400 mg Methyl Salicylate (Analgesic [place]) 0 gm TOP Q2HR PRN PRN Reason: Pain Morphine Sulfate (Morphine) 1 mg IVPUSH Q2H PRN PRN Reason: Pain Last Admin: 05/01/19 14:03 Dose: 1 mg Potassium Chloride (Klor-Con M20) 40 meq PO ONETIME ONE Stop: 04/29/19 07:22 Last Admin: 04/29/19 09:28 Dose: 40 meq Potassium Chloride (Klor-Con M20) 20 meq PO DAILY [facility] Last Admin: 05/02/19 15:27 Dose: 20 meq Potassium Chloride (Klor-Con M20) 40 meq PO ONETIME ONE Stop: 05/02/19 19:39 Last Admin: 05/02/19 21:33 Dose: 40 meq Sodium Chloride (Saline Flush) 10 ml FLUSH Q12HR MELVIN Last Admin: 05/02/19 21:34 Dose: Not Given Trolamine Salicylate (Aspercreme 10%) 1 gm TOP Q1H PRN PRN Reason: Pain in Flank - Exam Quality Assessment: DVT Prophylaxis General: Alert, Oriented, Cooperative HEENT: Pupils Equal, Pupils Reactive, Mucous Membr. Moist/Roy Neck: Supple, Trachea Midline Lungs: Clear to Auscultation, Normal Respiratory Effort Cardiovascular: Regular Rhythm, Tachycardia GI/Abdominal Exam: Normal Bowel Sounds, Soft, Tender (LUQ tenderness ), Other ( 33 weeks ) (Female) Exam: Deferred Extremities: Normal Inspection, Normal Range of Motion, Non-Tender, No Pedal Edema, Normal Capillary Refill Skin: Warm, Dry, Intact Neurological: No New Focal Deficit Psy/Mental Status: Alert, Normal Affect, Normal Mood Sepsis Event Note - Evaluation Sepsis Screening Result: Sepsis Risk - Focused Exam Vital Signs: Vital Signs Temp Pulse Resp BP Pulse Ox 05/04/19 03:27 97.5 F 103 H 20 123/63 96 05/03/19 23:42 97.5 F 101 H 20 119/86 98 Date Exam was Performed: 05/04/19 Time Exam was Performed: 11:35 Consult PN Assessment/Plan Procedures: Procedures ASSAY OF FERRITIN (01/08/19) ASSAY OF IRON (01/08/19) ASSAY THYROID STIM HORMONE (12/26/18) BLOOD TYPING SEROLOGIC ABO (10/09/18) BLOOD TYPING SEROLOGIC RH(D) (10/09/18) CHORIONIC GONADOTROPIN TEST (10/09/18) COMPLETE CBC W/AUTO DIFF WBC (03/18/19) GLUCOSE TEST (03/18/19) HEPATITIS C AB TEST (12/26/18) HIV-1 AG W/HIV-1 & HIV-2 AB (12/26/18) METABOLIC PANEL TOTAL CA (01/08/19) OB US >/= 14 WKS SNGL FETUS (02/05/19) RBC ANTIBODY SCREEN (10/09/18) ROUTINE VENIPUNCTURE (03/18/19) SMEAR WET [place] SALINE/INK (12/29/18) SYPHILIS TEST NON-TREP QUAL (03/18/19) TRICHOMONAS ASSAY W/OPTIC (12/29/18) URINALYSIS AUTO W/O SCOPE (12/26/18) URINE CULTURE/COLONY COUNT (12/26/18) VARICELLA-ZOSTER ANTIBODY (12/26/18) (1) 33 weeks gestation of SNOMED Code(s): 26430252 Code(s): Z3A.33 - 33 WEEKS GESTATION OF Priority: High Current Visit: Yes (2) Acute pancreatitis SNOMED Code(s): 142845963 Code(s): K85.90 - ACUTE PANCREATITIS WITHOUT NECROSIS OR INFECTION, UNSP Priority: High Current Visit: Yes (3) High anion gap metabolic acidosis SNOMED Code(s): 20787671 Code(s): E87.2 - ACIDOSIS Priority: High Current Visit: Yes (4) Hypertriglyceridemia SNOMED Code(s): 868920373 Code(s): E78.1 - PURE HYPERGLYCERIDEMIA Priority: High Current Visit: Yes (5) Hypokalemia SNOMED Code(s): 21733081 Code(s): E87.6 - HYPOKALEMIA Priority: High Current Visit: Yes (6) Hypomagnesemia SNOMED Code(s): 552497474 Code(s): E83.42 - HYPOMAGNESEMIA Priority: High Current Visit: Yes (7) Hypophosphatemia SNOMED Code(s): 2589523 Code(s): E83.39 - OTHER DISORDERS OF PHOSPHORUS METABOLISM Priority: High Current Visit: Yes (8) Status post cholecystectomy SNOMED Code(s): 994273803, 00342443, 671218115 Code(s): Z90.49 - ACQUIRED ABSENCE OF OTHER SPECIFIED PARTS OF DIGESTIVE TRACT Priority: Medium Current Visit: Yes Problem List Initiated/Reviewed/Updated: Yes Plan: Acute pancreatitis Patient came in with severe abdominal pain Previous cholecystectomy in 2010 with negative MRCP Admitted for supportive care Pain controlled Patient continues to have intermittent pain and is unable to tolerate full liquid diet, on physical exam she has exquisite tenderness over the upper left flank will start Aspercreme to rule out superficial pain PLAN - Advance diet as tolerated - Aspercreme on flank - Tylenol #3 and morphine for pain, avoid morphine as much as possible - Repeat abdominal MRI High anion gap metabolic acidosis Hypomagnesemia/Hypophosphatemia/Hypokalemia Potassium has been replaced with IVF for 4 days Magnesium level today remains low Phosphorous now WNL PLAN - LR maintenance fluid - Magnesium 4g supplementation, Begin scheduled PO supplementation - KCL 40meq, Begin scheduled PO supplementeation Hypertriglyceridemia Concern for hypertriglyceridemia pancreatitis ruled out TG count 221 PLAN - recommend diet and lifestyle modifications as an outpatient upon discharge 33 weeks gestation of Primary team to follow No distress or any changes as per nursing CODE STATUS: FULL CODE PROPHYLAXIS & DISPOSITION PER PRIMARY TEAM
[2019-05-04] MEDS ORDERED: Potassium Chloride 10 MEQ in Premix Bag 1 BAG IV STA (09:17)
[2019-05-04] MEDS ORDERED: Magnesium Sulfate/Water 4 GM in Premix Bag 1 BAG IV STA (09:17)
[2019-05-04] MEDS ORDERED: Magnesium Oxide 400 MG Tab PO STA (09:17)
[2019-05-04] MEDS ORDERED: Potassium Chloride 20 MEQ Tab.ER PO STA (09:17)
[2019-05-04] MEDS: Polyethylene Glycol 3350 Powder 17 GM Packet PO SCH (09:36)
[2019-05-04] MEDS: Lidocaine 4% 1 each Patch TOP SCH (09:46)
[2019-05-04] MEDS: Pantoprazole 40 MG Tab.CR PO SCH (09:47)
--- NOTE | 2019-05-04 12:31 | PCM.PN ---
- General Info Date of Service: 05/04/19 Admission Dx/Problem (Free Text): Patient Status Order with Admit Dx/Problem 04/28/19 17:21 Patient Status [ADT] Routine Admission Diagnosis/Problem Admission Diagnosis/Problem Acute pancreatitis Subjective Update: Patient tried cream of wheat this am and didn't add the milk and watered it down a bit and it seemed to go a bit better but did still have increased pain in the RUQ. She really isn't having much pain in the RUQ/epigastric area now, but has had a persistent pain in the left flank and left side of the abdomen for the last couple of days. The lidocaine patch takes the edge off, but it increases with deep breaths and moving. Denies cough and denies feeling SOB. No fever. Still using IS. She did need to use an IV morphine dose yesterday. NST this am is borderline with minimal variability, looks like a sleep pattern. Labs today look a bit better, WBC is down and AG is down, but electrolytes still abnormal. She really has only been taking in clear fluids. Functional Status: Reports: Pain Controlled, Tolerating Diet, Ambulating, Urinating, Incentive Spirometry - Review of Systems General: Reports: No Symptoms HEENT: Reports: No Symptoms Pulmonary: Reports: No Symptoms Cardiovascular: Reports: No Symptoms Gastrointestinal: Reports: Abdominal Pain (Left flank and left side), Flatus Genitourinary: Reports: No Symptoms Musculoskeletal: Reports: No Symptoms Skin: Reports: No Symptoms Neurological: Reports: No Symptoms Psychiatric: Reports: No Symptoms - Patient Data Vitals - Most Recent: Last Vital Signs Temp 36.6 C 05/04/19 08:59 Pulse 102 H 05/04/19 08:59 Resp 14 05/04/19 08:59 BP 112/64 05/04/19 08:59 Pulse Ox 97 05/04/19 08:59 Weight - Most Recent: 91.314 kg I&O - Last 24 Hours: Intake & Output 05/03/19 05/04/19 05/04/19 22:59 06:59 14:59 Intake Total 2220 800 200 Output Total 1500 2100 375 Balance 720 -1300 -175 Lab Results Last 24 Hours: Laboratory Results - last 24 hr 05/03/19 05/03/19 05/03/19 Range/Units 01:25 01:25 13:25 WBC (3.98-10.04) K/mm3 RBC (3.98-5.22) M/mm3 Hgb (11.2-15.7) gm/dl Hct (34.1-44.9) % MCV (79.4-94.8) fl MCH (25.6-32.2) pg MCHC (32.2-35.5) g/dl RDW Std Deviation (36.4-46.3) fL Plt Count (182-369) K/mm3 MPV (9.4-12.3) fl Neutrophils % (Manual) (40-60) % Band Neutrophils % (0-10) % Lymphocytes % (Manual) (20-40) % Atypical Lymphs % % Monocytes % (Manual) (2-10) % Eosinophils % (Manual) (0.7-5.8) % Basophils % (Manual) (0.1-1.2) Platelet Estimate RBC Morph Comment Puncture Site Lt radial ABG pH 7.42 (7.35-7.45) ABG pCO2 28.6 L (35.0-45.0) mmHg ABG pO2 80.0 (80.0-100.0) mmHg ABG HCO3 18.1 L (22.0-26.0) meq/L ABG O2 Saturation 96.9 (96.0-97.0) % ABG Base Excess -4.9 L (-2-2.0) Mo Test Positive A-a Gradient 34 mmHg O2 Delivery Device Room air Oxygen Flow Rate 0.0 FiO2 21.00 (21.00-100.00) % Sodium (136-145) mEq/L Potassium (3.5-5.1) mEq/L Chloride (98-107) mEq/L Carbon Dioxide (21-32) mEq/L Anion Gap (5-15) BUN (7-18) mg/dL Creatinine (0.55-1.02) mg/dL Est Cr Clr Drug Dosing mL/min Estimated GFR (MDRD) (>60) mL/min BUN/Creatinine Ratio (14-18) Glucose (74-106) mg/dL Lactic Acid 1.0 (0.4-2.0) mmol/L Calcium (8.5-10.1) mg/dL Phosphorus (2.6-4.7) mg/dL Magnesium (1.8-2.4) mg/dl Total Bilirubin (0.2-1.0) mg/dL AST (15-37) U/L ALT (14-59) U/L Alkaline Phosphatase (46-116) U/L Total Protein (6.4-8.2) g/dl Albumin (3.4-5.0) g/dl Globulin gm/dL Albumin/Globulin Ratio (1-2) Ketones 0.33 (0.0-0.3) mM 05/04/19 05/04/19 Range/Units 06:05 06:05 WBC 13.66 H (3.98-10.04) K/mm3 RBC 3.36 L (3.98-5.22) M/mm3 Hgb 10.3 L (11.2-15.7) gm/dl Hct 32.2 L (34.1-44.9) % MCV 95.8 H (79.4-94.8) fl MCH 30.7 (25.6-32.2) pg MCHC 32.0 L (32.2-35.5) g/dl RDW Std Deviation 46.6 H (36.4-46.3) fL Plt Count 341 (182-369) K/mm3 MPV 9.3 L (9.4-12.3) fl Neutrophils % (Manual) 77 H (40-60) % Band Neutrophils % 0 (0-10) % Lymphocytes % (Manual) 13 L (20-40) % Atypical Lymphs % 0 % Monocytes % (Manual) 8 (2-10) % Eosinophils % (Manual) 2 (0.7-5.8) % Basophils % (Manual) 0 L (0.1-1.2) Platelet Estimate Adequate RBC Morph Comment Normal Puncture Site ABG pH (7.35-7.45) ABG pCO2 (35.0-45.0) mmHg ABG pO2 (80.0-100.0) mmHg ABG HCO3 (22.0-26.0) meq/L ABG O2 Saturation (96.0-97.0) % ABG Base Excess (-2-2.0) Mo Test A-a Gradient mmHg O2 Delivery Device Oxygen Flow Rate FiO2 (21.00-100.00) % Sodium 138 (136-145) mEq/L Potassium 3.3 L (3.5-5.1) mEq/L Chloride 106 (98-107) mEq/L Carbon Dioxide 20 L (21-32) mEq/L Anion Gap 15.3 H (5-15) BUN 6 L (7-18) mg/dL Creatinine 0.4 L (0.55-1.02) mg/dL Est Cr Clr Drug Dosing 180.81 mL/min Estimated GFR (MDRD) > 60 (>60) mL/min BUN/Creatinine Ratio 15.0 (14-18) Glucose 72 L (74-106) mg/dL Lactic Acid (0.4-2.0) mmol/L Calcium 8.3 L (8.5-10.1) mg/dL Phosphorus 2.6 (2.6-4.7) mg/dL Magnesium 1.7 L (1.8-2.4) mg/dl Total Bilirubin 0.6 (0.2-1.0) mg/dL AST 18 (15-37) U/L ALT 14 (14-59) U/L Alkaline Phosphatase 115 (46-116) U/L Total Protein 5.8 L (6.4-8.2) g/dl Albumin 2.0 L (3.4-5.0) g/dl Globulin 3.8 gm/dL Albumin/Globulin Ratio 0.5 L (1-2) Ketones (0.0-0.3) mM Med Orders - Current: Current Medications Acetaminophen/Codeine Phosphate (Tylenol With Codeine No.3 300mg/30mg) 1 tab PO Q4H PRN PRN Reason: Pain Last Admin: 05/04/19 06:14 Dose: 1 tab Bisacodyl (Dulcolax) 10 mg RECTAL DAILY PRN PRN Reason: Constipation Last Admin: 05/02/19 15:24 Dose: 10 mg Famotidine (Pepcid) 20 mg IV Q12H PRN PRN Reason: Heartburn Last Admin: 05/01/19 09:46 Dose: 20 mg Lactated Ringer's (Ringers, Lactated) 1,000 mls @ 125 mls/hr IV ASDIRECTED MELVIN Last Admin: 05/04/19 07:24 Dose: 125 mls/hr Magnesium Sulfate 4 gm/ Premix 50 mls @ 12.5 mls/hr IV ONETIME STA Stop: 05/04/19 13:16 Last Admin: 05/04/19 09:55 Dose: 12.5 mls/hr Lidocaine (Aspercreme 4%) 1 each TOP DAILY MELVIN Last Admin: 05/04/19 09:46 Dose: 1 each Methyl Salicylate (Icy Hot Cream) 0 gm TOP Q2HR PRN PRN Reason: Pain Miscellaneous Information (Remove Patch) 1 ea TRDERM BEDTIME MELVIN Last Admin: 05/04/19 03:20 Dose: 1 ea Morphine Sulfate (Morphine) 2 mg IVPUSH Q4H PRN PRN Reason: Pain Last Admin: 05/04/19 03:21 Dose: 2 mg Ondansetron HCl (Zofran) 4 mg IV Q4H PRN PRN Reason: Nausea/Vomiting Last Admin: 04/29/19 11:06 Dose: 4 mg Pantoprazole Sodium (Protonix) 40 mg PO DAILY [facility] Last Admin: 05/04/19 09:47 Dose: 40 mg Polyethylene Glycol (Miralax) 17 gm PO DAILY [facility] Last Admin: 05/04/19 09:36 Dose: 17 gm Senna/Docusate Sodium (Senna Plus) 2 tab PO BEDTIME [facility] Last Admin: 05/03/19 23:31 Dose: 2 tab Simethicone (Simethicone) 80 mg PO Q4H PRN PRN Reason: Gas Last Admin: 05/04/19 06:56 Dose: 80 mg Sodium Chloride (Saline Flush) 0 ml FLUSH Q12HR [facility] Last Admin: 05/04/19 09:11 Dose: Not Given Trolamine Salicylate (Aspercreme 10%) 0 gm TOP Q1H PRN PRN Reason: Pain in Flank Discontinued Medications Acetaminophen/Codeine Phosphate (Tylenol With Codeine No.3 300mg/30mg) 2 tab PO Q6H PRN PRN Reason: Pain Last Admin: 05/02/19 18:08 Dose: 2 tab Al Hydroxide/Mg Hydroxide 30 (ml/ Lidocaine HCl 15 ml) 0 ml PO ONETIME ONE Stop: 04/28/19 18:55 Last Admin: 04/28/19 19:29 Dose: 45 ml Famotidine (Pepcid) 20 mg IVPUSH ONETIME ONE Stop: 04/28/19 18:50 Last Admin: 04/28/19 19:30 Dose: 20 mg Fentanyl (Sublimaze) 25 mcg IVPUSH Q1H PRN PRN Reason: Abdominal Pain Last Admin: 04/29/19 01:43 Dose: 25 mcg Fentanyl (Sublimaze) 50 mcg IVPUSH Q1H PRN PRN Reason: Abdominal Pain Last Admin: 04/29/19 09:26 Dose: 50 mcg Hydromorphone HCl (Dilaudid) 0.25 mg IVPUSH Q1H PRN PRN Reason: Abdominal Pain Last Admin: 05/01/19 08:59 Dose: 0.25 mg Lactated Ringer's (Ringers, Lactated) 1,000 mls @ 999 mls/hr IV .BOLUS ONE Stop: 04/28/19 19:50 Last Admin: 04/28/19 19:30 Dose: 999 mls/hr Lactated Ringer's (Ringers, Lactated) 1,000 mls @ 200 mls/hr IV ASDIRECTED [facility] Last Admin: 04/29/19 06:06 Dose: 200 mls/hr Potassium Chloride/Sodium Chloride (Normal Saline With 20 Meq Kcl) 1,000 mls @ 125 mls/hr IV ASDIRECTED [facility] Last Admin: 04/29/19 10:57 Dose: 125 mls/hr Potassium Chloride/Dextrose/Sod Cl (D5 1/2 Ns W/ 20 Meq/L Kcl) 1,000 mls @ 100 mls/hr IV ASDIRECTED [facility] Last Admin: 05/01/19 03:05 Dose: 100 mls/hr Acetaminophen (Ofirmev) 100 mls @ 400 mls/hr IV Q6HR PRN PRN Reason: Pain Stop: 05/02/19 12:15 Acetaminophen (Ofirmev) 100 mls @ 400 mls/hr IV Q6H PRN PRN Reason: Pain Stop: 05/02/19 12:15 Acetaminophen (Ofirmev) 65 mls @ 400 mls/hr IV Q4H PRN PRN Reason: Pain Stop: 05/02/19 13:55 Last Admin: 05/01/19 14:07 Dose: 260 mls/hr Lactated Ringer's (Ringers, Lactated) 1,000 mls @ 125 mls/hr IV ASDIRECTED [facility] Stop: 05/01/19 21:54 Last Infusion: 05/01/19 22:35 Dose: 75 mls/hr Magnesium Sulfate 4 gm/ Premix 50 mls @ 12.5 mls/hr IV ONETIME ONE Stop: 05/01/19 18:29 Last Admin: 05/01/19 14:43 Dose: 12.5 mls/hr Potassium Phosphate 30 mmole/ (Sodium Chloride) 260 mls @ 52 mls/hr IV ONETIME ONE Stop: 05/01/19 19:29 Last Admin: 05/01/19 14:42 Dose: 52 mls/hr Sodium Chloride (Normal Saline) 500 mls @ 100 mls/hr IV ASDIRECTED MELVIN Last Admin: 05/01/19 15:04 Dose: 100 mls/hr Lactated Ringer's (Ringers, Lactated) 1,000 mls @ 75 mls/hr IV ASDIRECTED MELVIN Last Infusion: 05/03/19 17:05 Dose: Infused Lactated Ringer's (Ringers, Lactated) 1,000 mls @ 999 mls/hr IV .BOLUS STA Stop: 05/03/19 17:01 Last Admin: 05/03/19 17:09 Dose: 999 mls/hr Lactated Ringer's (Ringers, Lactated) 1,000 mls @ 100 mls/hr IV ASDIRECTED [facility] Magnesium Sulfate 4 gm/ Premix 50 mls @ 12.5 mls/hr IV ONETIME STA Stop: 05/03/19 20:00 Last Admin: 05/03/19 17:09 Dose: 12.5 mls/hr Potassium Chloride 10 meq/ (Premix) 100 mls @ 100 mls/hr IV Q1H STA Stop: 05/04/19 10:16 Last Admin: 05/04/19 09:51 Dose: 100 mls/hr Magnesium Oxide (Magnesium Oxide) 400 mg PO ONETIME ONE Stop: 05/02/19 19:42 Last Admin: 05/02/19 21:33 Dose: 400 mg Magnesium Oxide (Magnesium Oxide) 400 mg PO Q6H STA Stop: 05/04/19 09:18 Last Admin: 05/04/19 09:46 Dose: 400 mg Methyl Salicylate (Analgesic [employer]) 0 gm TOP Q2HR PRN PRN Reason: Pain Morphine Sulfate (Morphine) 1 mg IVPUSH Q2H PRN PRN Reason: Pain Last Admin: 05/01/19 14:03 Dose: 1 mg Potassium Chloride (Klor-Con M20) 40 meq PO ONETIME ONE Stop: 04/29/19 07:22 Last Admin: 04/29/19 09:28 Dose: 40 meq Potassium Chloride (Klor-Con M20) 20 meq PO DAILY [facility] Last Admin: 05/02/19 15:27 Dose: 20 meq Potassium Chloride (Klor-Con M20) 40 meq PO ONETIME ONE Stop: 05/02/19 19:39 Last Admin: 05/02/19 21:33 Dose: 40 meq Potassium Chloride (Klor-Con M20) 40 meq PO Q6H STA Stop: 05/04/19 09:18 Last Admin: 05/04/19 09:46 Dose: 40 meq Sodium Chloride (Saline Flush) 10 ml FLUSH Q12HR [facility] Last Admin: 05/02/19 21:34 Dose: Not Given Trolamine Salicylate (Aspercreme 10%) 1 gm TOP Q1H PRN PRN Reason: Pain in Flank - Exam General: Alert, Oriented, No Acute Distress HEENT: Mucous Membr. Moist/[place] Neck: Supple Lungs: Decreased Breath Sounds Cardiovascular: Regular Rate, Regular Rhythm GI/Abdominal Exam: Tender (Tender left flank and LUQ. No tenderness to RUQ or epigastric area today), Abnormal Bowel Sounds (Female) Exam: Enlarged Uterus, Heart Tones (NST not reactive this am, but no decelerations and no contractions. ) Back Exam: CVA Tenderness (L) Extremities: Non-Tender, No Pedal Edema Neurological: No New Focal Deficit Psy/Mental Status: Alert, Normal Affect, Normal Mood Sepsis Event Note - Evaluation Sepsis Screening Result: Sepsis Risk - Focused Exam Vital Signs: Vital Signs Temp Pulse Resp BP Pulse Ox 05/04/19 08:59 36.6 C 102 H 14 112/64 97 05/04/19 03:27 36.4 C 103 H 20 123/63 96 Date Exam was Performed: 05/04/19 Time Exam was Performed: 12:23 - Problem List & Annotations (1) Acute pancreatitis SNOMED Code(s): 514014253 Code(s): K85.90 - ACUTE PANCREATITIS WITHOUT NECROSIS OR INFECTION, UNSP Status: Acute Priority: High Current Visit: Yes (2) 33 weeks gestation of SNOMED Code(s): 49524849 Code(s): Z3A.33 - 33 WEEKS GESTATION OF Status: Acute Priority : High Current Visit: Yes (3) Status post cholecystectomy SNOMED Code(s): 657640923, 55389407, 769058778 Code(s): Z90.49 - ACQUIRED ABSENCE OF OTHER SPECIFIED PARTS OF DIGESTIVE TRACT Status: Acute Priority: Medium Current Visit: Yes (4) GERD (gastroesophageal reflux disease) SNOMED Code(s): 053693178 Code(s): K21.9 - GASTRO-ESOPHAGEAL REFLUX DISEASE WITHOUT ESOPHAGITIS Status: Acute Priority: High Current Visit: Yes Qualifiers: Esophagitis presence: esophagitis presence not specified Qualified Code(s) : K21.9 - Gastro-esophageal reflux disease without esophagitis (5) Hypokalemia SNOMED Code(s): 18035397 Code(s): E87.6 - HYPOKALEMIA Status: Acute Priority: High Current Visit : Yes (6) Hypomagnesemia SNOMED Code(s): 216717570 Code(s): E83.42 - HYPOMAGNESEMIA Status: Acute Priority: High Current Visit: Yes - Problem List Review Problem List Initiated/Reviewed/Updated: Yes - Assessment Assessment:: Assessment and plan 1. Acute pancreatitis - WBC is down a bit to 13.66 but still with left shift. Afebrile. She still has an anion gap, but down to 15.3 Pain is controlled mostly with PO tylenol #3, now only using 1 every 4 to 6 hours. She had 1 dose of IV morphine in the night. Her pain now continues to be left flank, worse with deep breaths and movement. Continue IS and encourage ambulation. Tolerating clear fluids, no nausea and no increased pain with po fluids. She did have some cream of wheat this am but didn't add milk, but watered it down with water and it was better, but still increased pain in the RUQ with that. Hospitalist has ordered repeat MRI abdomen to evaluate for complications with the pancreas. 2. Fluid status -Continues to have good urine output with average 125 mL/h. STill getting IV fluids. Creatinine and BUN stable. She is taking PO fluids now and tolerating. Continue to monitor urine output. BP and pulse stable. 3. GERD - on IV Pepcid q 12 hour and po pantoprazole. 4. Hypokalemia - K+ today 3.3. Mag level is 1.7, She has been getting IV KCl and IV Mag and also started PO KCl and PO mag. Repeat labs in am. 5. Ileus - had small BM yesterday and passing some gas. Will continue Miralax daily, prn dulcolax supp. Continue Senekot-S nightly to help counteract the narcotic effect on the bowel. Encourage ambulation. Simethicone as needed for gas pains. 5. at 34 +3 weeks - NST from this am is not reactive. No contractions today. Will repeat NST this afternoon. Try restarting vitamin Jessica Harris MD [id number] 05/04/19 - Plan Plan:: Acute pancreatitis Patient came in with severe abdominal pain Previous cholecystectomy in 2010 with negative MRCP Admitted for supportive care Pain controlled Patient continues to have intermittent pain and is unable to tolerate full liquid diet, on physical exam she has exquisite tenderness over the upper left flank will start Aspercreme to rule out superficial pain If bloos work continues to be abdomal and patient is still unable to tolerate po will do abdominal CT in the AM PLAN - Advance diet as tolerated - Aspercreme on flank - Tylenol #3 and morphine for pain, avoid morphine as much as possible High anion gap metabolic acidosis Hypomagnesemia/Hypophosphatemia/Hypokalemia Potassium has been replaced with IVF for 3 days Magnesium and phosphate level today significantly low PLAN - LR bolus - Magnesium 4g supplementation - KCL 40meq Hypertriglyceridemia Concern for hypertriglyceridemia pancreatitis ruled out TG count 221 PLAN - recommend diet and lifestyle modifications as an outpatient upon discharge 33 weeks gestation of Primary team to follow No distress or any changes as per nursing CODE STATUS: FULL CODE PROPHYLAXIS & DISPOSITION PER PRIMARY TEAM
--- NOTE | 2019-05-04 15:50 | MR ---
MRI pancreas Technique: Various sequences were obtained in axial and coronal planes. Intravenous contrast not utilized as patient is . Comparison: Previous MRI abdominal study of 04/30/19. Findings: Mild amount of fluid is seen within the abdomen. This has diminished from previous exam. Edematous changes seen previously around the pancreas have also improved. There is no edema within the pancreas to suggest necrotizing pancreatitis. No ductal dilatation is seen within the pancreas. No additional abnormality is seen. Impression: 1. Mild amount of fluid within the abdomen. This has diminished from previous exam. Fluid around the pancreas has also improved. 2. No edematous change within the pancreas is seen to indicate necrotizing pancreatitis. No pancreatic duct dilatation is seen. Diagnostic code #2 This report was dictated in [place] Standard Time
[2019-05-04] MEDS: Prenatal Multivitamin with Calcium/Folic Acid/Iron Tab PO SCH (19:14)
[2019-05-05] MEDS: Lactated Ringers 1,000 ML IV SCH ×3 (00:26→17:49)
[2019-05-05] MEDS: Acetaminophen/Codeine 300-30 MG Tab PO PRN ×3 (05:56→20:08)
--- NOTE | 2019-05-05 07:13 | PCM.CONSN ---
- General Info Date of Service: 05/05/19 Admission Dx/Problem (Free Text): Patient Status Order with Admit Dx/Problem 04/28/19 17:21 Patient Status [ADT] Routine Admission Diagnosis/Problem Admission Diagnosis/Problem Acute pancreatitis Subjective Update: In to see Kelsie. She reports she feels better today. Clinically she looks better and much more comfortable. Her WBC is down. Electrolytes will be supplemented again. MRI showed improvement. She is going to work on trying to eat a bit more today as she reports pain was improved with eating last night. She had a BM yesterday which she reports helped her pain a bit. No nursing or patient concerns. Functional Status: Reports: Pain Controlled, Tolerating Diet (improving slowly ) , Ambulating, Urinating, Incentive Spirometry. Denies: New Symptoms - Review of Systems General: Reports: No Symptoms. Denies: Fever, Weakness, Fatigue, Malaise, Chills HEENT: Reports: No Symptoms. Denies: Headaches, Sore Throat Pulmonary: Reports: No Symptoms. Denies: Shortness of Breath, Cough, Sputum, Wheezing Cardiovascular: Reports: No Symptoms. Denies: Chest Pain, Palpitations, Dyspnea on Exertion Gastrointestinal: Reports: Abdominal Pain (improving ), Other (Had BM yesterday ). Denies: Constipation, Diarrhea, Nausea, Vomiting Genitourinary: Reports: No Symptoms. Denies: Pain Musculoskeletal: Reports: No Symptoms Skin: Reports: No Symptoms. Denies: Cyanosis Neurological: Reports: No Symptoms. Denies: Pre-Existing Deficit, Difficulty Walking, Gait Disturbance Psychiatric: Reports: No Symptoms - Patient Data Vitals - Most Recent: Last Vital Signs Temp 97.7 F 05/05/19 05:58 Pulse 90 05/05/19 05:58 Resp 15 05/05/19 05:58 BP 113/67 05/05/19 05:58 Pulse Ox 97 05/05/19 05:58 Weight - Most Recent: 201 lb 5 oz I&O - Last 24 Hours: Intake & Output 05/04/19 05/05/19 05/05/19 22:59 06:59 14:59 Intake Total 3618 1500 Output Total 1850 1300 Balance 1768 200 Lab Results Last 24 Hours: Laboratory Results - last 24 hr 05/03/19 05/04/19 05/04/19 Range/Units 14:15 06:05 15:44 WBC (3.98-10.04) K/mm3 RBC (3.98-5.22) M/mm3 Hgb (11.2-15.7) gm/dl Hct (34.1-44.9) % MCV (79.4-94.8) fl MCH (25.6-32.2) pg MCHC (32.2-35.5) g/dl RDW Std Deviation (36.4-46.3) fL Plt Count (182-369) K/mm3 MPV (9.4-12.3) fl Neut % (Auto) (34.0-71.1) % Lymph % (Auto) (19.3-51.7) % [place] % (Auto) (4.7-12.5) % Eos % (Auto) (0.7-5.8) Baso % (Auto) (0.1-1.2) % Neut # (Auto) (1.56-6.13) K/mm3 Lymph # (Auto) (1.18-3.74) K/mm3 [place] # (Auto) (0.24-0.36) K/mm3 Eos # (Auto) (0.04-0.36) K/mm3 Baso # (Auto) (0.01-0.08) K/mm3 Neutrophils % (Manual) 77 H (40-60) % Band Neutrophils % 0 (0-10) % Lymphocytes % (Manual) 13 L (20-40) % Atypical Lymphs % 0 % Monocytes % (Manual) 8 (2-10) % Eosinophils % (Manual) 2 (0.7-5.8) % Basophils % (Manual) 0 L (0.1-1.2) Platelet Estimate Adequate RBC Morph Comment Normal Sodium (136-145) mEq/L Potassium (3.5-5.1) mEq/L Chloride (98-107) mEq/L Carbon Dioxide (21-32) mEq/L Anion Gap (5-15) BUN (7-18) mg/dL Creatinine (0.55-1.02) mg/dL Est Cr Clr Drug Dosing mL/min Estimated GFR (MDRD) (>60) mL/min BUN/Creatinine Ratio (14-18) Glucose (74-106) mg/dL POC Glucose 62 L (70-105) mg/dL Calcium (8.5-10.1) mg/dL Magnesium (1.8-2.4) mg/dl Total Bilirubin (0.2-1.0) mg/dL AST (15-37) U/L ALT (14-59) U/L Alkaline Phosphatase (46-116) U/L Total Protein (6.4-8.2) g/dl Albumin (3.4-5.0) g/dl Globulin gm/dL Albumin/Globulin Ratio (1-2) Adenovirus (PCR) Not detected (Not Detected) B. pertussis DNA (PCR) Not detected (Not Detected) B.parapertussis DNA PCR Not detected (Not Detected) C. pneumoniae DNA (PCR) Not detected (Not Detected) Coronavirus (PCR) Not detected (Not Detected) Human Metapneumovir PCR Not detected (Not Detected) Influenza A (RT-PCR) Not detected (Not Detected) Influenza B (RT-PCR) Not detected (Not Detected) M. pneumoniae (PCR) Not detected (Not Detected) Parainfluen 1,2,3,4 PCR Not detected (Not Detected) RSV (PCR) Not detected (Not Detected) Entero/Rhino (PCR) Not detected (Not Detected) 05/05/19 05/05/19 Range/Units 05:24 05:24 WBC 10.68 H (3.98-10.04) K/mm3 RBC 3.27 L (3.98-5.22) M/mm3 Hgb 10.0 L (11.2-15.7) gm/dl Hct 31.1 L (34.1-44.9) % MCV 95.1 H (79.4-94.8) fl MCH 30.6 (25.6-32.2) pg MCHC 32.2 (32.2-35.5) g/dl RDW Std Deviation 45.6 (36.4-46.3) fL Plt Count 328 (182-369) K/mm3 MPV 9.0 L (9.4-12.3) fl Neut % (Auto) 68.1 (34.0-71.1) % Lymph % (Auto) 19.6 (19.3-51.7) % [place] % (Auto) 9.0 (4.7-12.5) % Eos % (Auto) 2.7 (0.7-5.8) Baso % (Auto) 0.2 (0.1-1.2) % Neut # (Auto) 7.28 H (1.56-6.13) K/mm3 Lymph # (Auto) 2.09 (1.18-3.74) K/mm3 [place] # (Auto) 0.96 H (0.24-0.36) K/mm3 Eos # (Auto) 0.29 (0.04-0.36) K/mm3 Baso # (Auto) 0.02 (0.01-0.08) K/mm3 Neutrophils % (Manual) (40-60) % Band Neutrophils % (0-10) % Lymphocytes % (Manual) (20-40) % Atypical Lymphs % % Monocytes % (Manual) (2-10) % Eosinophils % (Manual) (0.7-5.8) % Basophils % (Manual) (0.1-1.2) Platelet Estimate RBC Morph Comment Sodium 139 (136-145) mEq/L Potassium 3.4 L (3.5-5.1) mEq/L Chloride 106 (98-107) mEq/L Carbon Dioxide 22 (21-32) mEq/L Anion Gap 14.4 (5-15) BUN 4 L (7-18) mg/dL Creatinine 0.4 L (0.55-1.02) mg/dL Est Cr Clr Drug Dosing 180.81 mL/min Estimated GFR (MDRD) > 60 (>60) mL/min BUN/Creatinine Ratio 10.0 L (14-18) Glucose 71 L (74-106) mg/dL POC Glucose (70-105) mg/dL Calcium 8.3 L (8.5-10.1) mg/dL Magnesium 1.7 L (1.8-2.4) mg/dl Total Bilirubin 0.4 (0.2-1.0) mg/dL AST 28 (15-37) U/L ALT 15 (14-59) U/L Alkaline Phosphatase 109 (46-116) U/L Total Protein 5.6 L (6.4-8.2) g/dl Albumin 1.9 L (3.4-5.0) g/dl Globulin 3.7 gm/dL Albumin/Globulin Ratio 0.5 L (1-2) Adenovirus (PCR) (Not Detected) B. pertussis DNA (PCR) (Not Detected) B.parapertussis DNA PCR (Not Detected) C. pneumoniae DNA (PCR) (Not Detected) Coronavirus (PCR) (Not Detected) Human Metapneumovir PCR (Not Detected) Influenza A (RT-PCR) (Not Detected) Influenza B (RT-PCR) (Not Detected) M. pneumoniae (PCR) (Not Detected) Parainfluen 1,2,3,4 PCR (Not Detected) RSV (PCR) (Not Detected) Entero/Rhino (PCR) (Not Detected) Med Orders - Current: Current Medications Acetaminophen/Codeine Phosphate (Tylenol With Codeine No.3 300mg/30mg) 1 tab PO Q4H PRN PRN Reason: Pain Last Admin: 05/05/19 05:56 Dose: 1 tab Bisacodyl (Dulcolax) 10 mg RECTAL DAILY PRN PRN Reason: Constipation Last Admin: 05/02/19 15:24 Dose: 10 mg Famotidine (Pepcid) 20 mg IV Q12H PRN PRN Reason: Heartburn Last Admin: 05/01/19 09:46 Dose: 20 mg Lactated Ringer's (Ringers, Lactated) 1,000 mls @ 125 mls/hr IV ASDIRECTED [facility] Last Admin: 05/05/19 00:26 Dose: 125 mls/hr Lidocaine (Aspercreme 4%) 1 each TOP DAILY [facility] Last Admin: 05/04/19 09:46 Dose: 1 each Methyl Salicylate (Icy Hot Cream) 0 gm TOP Q2HR PRN PRN Reason: Pain Miscellaneous Information (Remove Patch) 1 ea TRDERM BEDTIME [facility] Last Admin: 05/04/19 23:33 Dose: 1 ea Morphine Sulfate (Morphine) 2 mg IVPUSH Q4H PRN PRN Reason: Pain Last Admin: 05/04/19 14:28 Dose: 2 mg Ondansetron HCl (Zofran) 4 mg IV Q4H PRN PRN Reason: Nausea/Vomiting Last Admin: 04/29/19 11:06 Dose: 4 mg Pantoprazole Sodium (Protonix) 40 mg PO DAILY [facility] Last Admin: 05/04/19 09:47 Dose: 40 mg Polyethylene Glycol (Miralax) 17 gm PO DAILY [facility] Last Admin: 05/04/19 09:36 Dose: 17 gm Prenat Multivit/[place]/Iron/Folic Ac ( Plus Iron) 1 each PO DAILY [facility] Last Admin: 05/04/19 19:14 Dose: 1 each Senna/Docusate Sodium (Senna Plus) 2 tab PO BEDTIME [facility] Last Admin: 05/04/19 21:51 Dose: 2 tab Simethicone (Simethicone) 80 mg PO Q4H PRN PRN Reason: Gas Last Admin: 05/04/19 06:56 Dose: 80 mg Sodium Chloride (Saline Flush) 0 ml FLUSH Q12HR [facility] Last Admin: 05/04/19 09:11 Dose: Not Given Trolamine Salicylate (Aspercreme 10%) 0 gm TOP Q1H PRN PRN Reason: Pain in Flank Discontinued Medications Acetaminophen/Codeine Phosphate (Tylenol With Codeine No.3 300mg/30mg) 2 tab PO Q6H PRN PRN Reason: Pain Last Admin: 05/02/19 18:08 Dose: 2 tab Al Hydroxide/Mg Hydroxide 30 (ml/ Lidocaine HCl 15 ml) 0 ml PO ONETIME ONE Stop: 04/28/19 18:55 Last Admin: 04/28/19 19:29 Dose: 45 ml Famotidine (Pepcid) 20 mg IVPUSH ONETIME ONE Stop: 04/28/19 18:50 Last Admin: 04/28/19 19:30 Dose: 20 mg Fentanyl (Sublimaze) 25 mcg IVPUSH Q1H PRN PRN Reason: Abdominal Pain Last Admin: 04/29/19 01:43 Dose: 25 mcg Fentanyl (Sublimaze) 50 mcg IVPUSH Q1H PRN PRN Reason: Abdominal Pain Last Admin: 04/29/19 09:26 Dose: 50 mcg Hydromorphone HCl (Dilaudid) 0.25 mg IVPUSH Q1H PRN PRN Reason: Abdominal Pain Last Admin: 05/01/19 08:59 Dose: 0.25 mg Lactated Ringer's (Ringers, Lactated) 1,000 mls @ 999 mls/hr IV .BOLUS ONE Stop: 04/28/19 19:50 Last Admin: 04/28/19 19:30 Dose: 999 mls/hr Lactated Ringer's (Ringers, Lactated) 1,000 mls @ 200 mls/hr IV ASDIRECTED MELVIN Last Admin: 04/29/19 06:06 Dose: 200 mls/hr Potassium Chloride/Sodium Chloride (Normal Saline With 20 Meq Kcl) 1,000 mls @ 125 mls/hr IV ASDIRECTED MELVIN Last Admin: 04/29/19 10:57 Dose: 125 mls/hr Potassium Chloride/Dextrose/Sod Cl (D5 1/2 Ns W/ 20 Meq/L Kcl) 1,000 mls @ 100 mls/hr IV ASDIRECTED MELVIN Last Admin: 05/01/19 03:05 Dose: 100 mls/hr Acetaminophen (Ofirmev) 100 mls @ 400 mls/hr IV Q6HR PRN PRN Reason: Pain Stop: 05/02/19 12:15 Acetaminophen (Ofirmev) 100 mls @ 400 mls/hr IV Q6H PRN PRN Reason: Pain Stop: 05/02/19 12:15 Acetaminophen (Ofirmev) 65 mls @ 400 mls/hr IV Q4H PRN PRN Reason: Pain Stop: 05/02/19 13:55 Last Admin: 05/01/19 14:07 Dose: 260 mls/hr Lactated Ringer's (Ringers, Lactated) 1,000 mls @ 125 mls/hr IV ASDIRECTED STA Stop: 05/01/19 21:54 Last Infusion: 05/01/19 22:35 Dose: 75 mls/hr Magnesium Sulfate 4 gm/ Premix 50 mls @ 12.5 mls/hr IV ONETIME ONE Stop: 05/01/19 18:29 Last Admin: 05/01/19 14:43 Dose: 12.5 mls/hr Potassium Phosphate 30 mmole/ (Sodium Chloride) 260 mls @ 52 mls/hr IV ONETIME ONE Stop: 05/01/19 19:29 Last Admin: 05/01/19 14:42 Dose: 52 mls/hr Sodium Chloride (Normal Saline) 500 mls @ 100 mls/hr IV ASDIRECTED MELVIN Last Admin: 05/01/19 15:04 Dose: 100 mls/hr Lactated Ringer's (Ringers, Lactated) 1,000 mls @ 75 mls/hr IV ASDIRECTED MELVIN Last Infusion: 05/03/19 17:05 Dose: Infused Lactated Ringer's (Ringers, Lactated) 1,000 mls @ 999 mls/hr IV .BOLUS STA Stop: 05/03/19 17:01 Last Admin: 05/03/19 17:09 Dose: 999 mls/hr Lactated Ringer's (Ringers, Lactated) 1,000 mls @ 100 mls/hr IV ASDIRECTED MELVIN Magnesium Sulfate 4 gm/ Premix 50 mls @ 12.5 mls/hr IV ONETIME STA Stop: 05/03/19 20:00 Last Admin: 05/03/19 17:09 Dose: 12.5 mls/hr Magnesium Sulfate 4 gm/ Premix 50 mls @ 12.5 mls/hr IV ONETIME STA Stop: 05/04/19 13:16 Last Admin: 05/04/19 09:55 Dose: 12.5 mls/hr Potassium Chloride 10 meq/ (Premix) 100 mls @ 100 mls/hr IV Q1H STA Stop: 05/04/19 10:16 Last Admin: 05/04/19 09:51 Dose: 100 mls/hr Magnesium Oxide (Magnesium Oxide) 400 mg PO ONETIME ONE Stop: 05/02/19 19:42 Last Admin: 05/02/19 21:33 Dose: 400 mg Magnesium Oxide (Magnesium Oxide) 400 mg PO Q6H STA Stop: 05/04/19 09:18 Last Admin: 05/04/19 09:46 Dose: 400 mg Methyl Salicylate (Analgesic [place]) 0 gm TOP Q2HR PRN PRN Reason: Pain Morphine Sulfate (Morphine) 1 mg IVPUSH Q2H PRN PRN Reason: Pain Last Admin: 05/01/19 14:03 Dose: 1 mg Potassium Chloride (Klor-Con M20) 40 meq PO ONETIME ONE Stop: 04/29/19 07:22 Last Admin: 04/29/19 09:28 Dose: 40 meq Potassium Chloride (Klor-Con M20) 20 meq PO DAILY [facility] Last Admin: 05/02/19 15:27 Dose: 20 meq Potassium Chloride (Klor-Con M20) 40 meq PO ONETIME ONE Stop: 05/02/19 19:39 Last Admin: 05/02/19 21:33 Dose: 40 meq Potassium Chloride (Klor-Con M20) 40 meq PO Q6H STA Stop: 05/04/19 09:18 Last Admin: 05/04/19 09:46 Dose: 40 meq Sodium Chloride (Saline Flush) 10 ml FLUSH Q12HR MELVIN Last Admin: 05/02/19 21:34 Dose: Not Given Trolamine Salicylate (Aspercreme 10%) 1 gm TOP Q1H PRN PRN Reason: Pain in Flank - Exam Quality Assessment: DVT Prophylaxis General: Alert, Oriented, Cooperative, No Acute Distress HEENT: Pupils Equal, Pupils Reactive, Mucous Membr. Moist/[place] Neck: Supple, Trachea Midline Lungs: Clear to Auscultation, Normal Respiratory Effort Cardiovascular: Regular Rate, Regular Rhythm GI/Abdominal Exam: Normal Bowel Sounds, Soft, No Organomegaly, No Distention, No Abnormal Bruit, No Mass, Pelvis Stable, Tender (LUQ tenderness - improving ) (Female) Exam: Deferred Back Exam: Normal Inspection, Full Range of Motion Extremities: Normal Inspection, Normal Range of Motion, Non-Tender, No Pedal Edema, Normal Capillary Refill Skin: Warm, Dry, Intact Neurological: No New Focal Deficit Psy/Mental Status: Alert, Normal Affect, Normal Mood Sepsis Event Note - Evaluation Sepsis Screening Result: No Definite Risk - Focused Exam Vital Signs: Vital Signs Temp Pulse Resp BP Pulse Ox 05/05/19 05:58 97.7 F 90 15 113/67 97 05/05/19 02:19 97.0 F 88 16 118/52 L 97 05/04/19 21:54 98.2 F 97 5 L 112/68 98 Date Exam was Performed: 05/05/19 Time Exam was Performed: 09:33 Consult PN Assessment/Plan Procedures: Procedures ASSAY OF FERRITIN (01/08/19) ASSAY OF IRON (01/08/19) ASSAY THYROID STIM HORMONE (12/26/18) BLOOD TYPING SEROLOGIC ABO (10/09/18) BLOOD TYPING SEROLOGIC RH(D) (10/09/18) CHORIONIC GONADOTROPIN TEST (10/09/18) COMPLETE CBC W/AUTO DIFF WBC (03/18/19) GLUCOSE TEST (03/18/19) HEPATITIS C AB TEST (12/26/18) HIV-1 AG W/HIV-1 & HIV-2 AB (12/26/18) METABOLIC PANEL TOTAL CA (01/08/19) OB US >/= 14 WKS SNGL FETUS (02/05/19) RBC ANTIBODY SCREEN (10/09/18) ROUTINE VENIPUNCTURE (03/18/19) SMEAR WET [place] SALINE/INK (12/29/18) SYPHILIS TEST NON-TREP QUAL (03/18/19) TRICHOMONAS ASSAY W/OPTIC (12/29/18) URINALYSIS AUTO W/O SCOPE (12/26/18) URINE CULTURE/COLONY COUNT (12/26/18) VARICELLA-ZOSTER ANTIBODY (12/26/18) (1) 33 weeks gestation of SNOMED Code(s): 36378415 Code(s): Z3A.33 - 33 WEEKS GESTATION OF Priority: High Current Visit: Yes (2) Acute pancreatitis SNOMED Code(s): 612010522 Code(s): K85.90 - ACUTE PANCREATITIS WITHOUT NECROSIS OR INFECTION, UNSP Priority: High Current Visit: Yes (3) High anion gap metabolic acidosis SNOMED Code(s): 04406722 Code(s): E87.2 - ACIDOSIS Priority: High Current Visit: Yes (4) Hypertriglyceridemia SNOMED Code(s): 754953214 Code(s): E78.1 - PURE HYPERGLYCERIDEMIA Priority: High Current Visit: Yes (5) Hypokalemia SNOMED Code(s): 62226326 Code(s): E87.6 - HYPOKALEMIA Priority: High Current Visit: Yes (6) Hypomagnesemia SNOMED Code(s): 068516455 Code(s): E83.42 - HYPOMAGNESEMIA Priority: High Current Visit: Yes (7) Hypophosphatemia SNOMED Code(s): 6283145 Code(s): E83.39 - OTHER DISORDERS OF PHOSPHORUS METABOLISM Priority: High Current Visit: Yes (8) Status post cholecystectomy SNOMED Code(s): 490888561, 98877197, 276303821 Code(s): Z90.49 - ACQUIRED ABSENCE OF OTHER SPECIFIED PARTS OF DIGESTIVE TRACT Priority: Medium Current Visit: Yes Problem List Initiated/Reviewed/Updated: Yes My Orders Last 24 Hours: My Active Orders 05/04/19 13:53 Blood Glucose Check, Bedside [RC] BIDAC Plan: Acute pancreatitis Patient came in with severe abdominal pain Previous cholecystectomy in 2010 with negative MRCP Admitted for supportive care Pain controlled Patient continues to have intermittent pain and is unable to tolerate full liquid diet, on physical exam she has exquisite tenderness over the upper left flank will start Aspercreme to rule out superficial pain Repeat abdominal MRI on 05/04/18 shows improvement PLAN - Advance diet as tolerated - Aspercreme on flank - Tylenol #3 and morphine for pain, avoid morphine as much as possible High anion gap metabolic acidosis Hypomagnesemia/Hypophosphatemia/Hypokalemia Potassium has been replaced with IVF for several days Worsened by poor oral intake Magnesium level today remains low Phosphorous now WNL PLAN - LR maintenance fluid - Magnesium 4g supplementation, Begin scheduled PO supplementation - KCL 40meq, Begin scheduled PO supplementation Hypertriglyceridemia Concern for hypertriglyceridemia pancreatitis ruled out TG count 221 PLAN - recommend diet and lifestyle modifications as an outpatient upon discharge 33 weeks gestation of Primary team to follow No distress or any changes as per nursing CODE STATUS: FULL CODE PROPHYLAXIS & DISPOSITION PER PRIMARY TEAM
[2019-05-05] MEDS ORDERED: Magnesium Sulfate/Water 4 GM in Premix Bag 1 BAG IV ONE (07:22)
[2019-05-05] MEDS: Sodium Chloride 0.9% 10 ML Syringe FLUSH SCH ×2 (07:41→14:41)
[2019-05-05] MEDS: Polyethylene Glycol 3350 Powder 17 GM Packet PO SCH (08:44)
[2019-05-05] MEDS: Prenatal Multivitamin with Calcium/Folic Acid/Iron Tab PO SCH (08:45)
[2019-05-05] MEDS: Lidocaine 4% 1 each Patch TOP SCH (08:45)
[2019-05-05] MEDS: Pantoprazole 40 MG Tab.CR PO SCH (08:46)
[2019-05-05] MEDS: Magnesium Oxide 400 MG Tab PO SCH ×2 (08:46→20:08)
[2019-05-05] MEDS: Potassium Chloride 20 MEQ Tab.ER PO SCH ×2 (08:57→20:08)
--- NOTE | 2019-05-05 18:58 | PCM.PN ---
- General Info Date of Service: 05/05/19 Admission Dx/Problem (Free Text): Patient Status Order with Admit Dx/Problem 04/28/19 17:21 Patient Status [ADT] Routine Admission Diagnosis/Problem Admission Diagnosis/Problem Acute pancreatitis Subjective Update: Patient has had a good day today. She has eaten some solid food for supper and that has not increased her pain. The pain in the left upper quadrant and left flank is better than yesterday. She has had a couple of loose stools as well and that seems to have helped. She has been using less of the Tylenol #3. I had crematorium operator consult with her today and gave written instructions and recommendations on diet for pancreatitis. WBC is down this am. K+ and Mag are still low and her oral supplements are increased to BID. She is doing IS and has been walking the halls and starting to feel stronger with walking. Baby has been active, no contractions. NST this am was reactive, no decelerations and no contractions on the monitor. Functional Status: Reports: Pain Controlled, Tolerating Diet, Ambulating, Urinating, Incentive Spirometry Pain Score: 2 - Review of Systems General: Reports: Fatigue (Not sleeping well) HEENT: Reports: No Symptoms Pulmonary: Reports: No Symptoms Cardiovascular: Reports: No Symptoms Gastrointestinal: Reports: Abdominal Pain (left upper quadrant) Musculoskeletal: Reports: No Symptoms Skin: Reports: No Symptoms Neurological: Reports: No Symptoms Psychiatric: Reports: No Symptoms - Patient Data Vitals - Most Recent: Last Vital Signs Temp 36.6 C 05/05/19 17:32 Pulse 95 05/05/19 17:32 Resp 16 05/05/19 17:32 BP 110/75 05/05/19 17:32 Pulse Ox 98 05/05/19 17:32 Weight - Most Recent: 91.314 kg I&O - Last 24 Hours: Intake & Output 05/05/19 05/05/19 05/05/19 06:59 14:59 22:59 Intake Total 1500 2487 Output Total 1300 2400 600 Balance 200 -2400 1887 Lab Results Last 24 Hours: Laboratory Results - last 24 hr 05/03/19 05/04/19 05/05/19 Range/Units 14:15 15:44 05:24 WBC 10.68 H (3.98-10.04) K/mm3 RBC 3.27 L (3.98-5.22) M/mm3 Hgb 10.0 L (11.2-15.7) gm/dl Hct 31.1 L (34.1-44.9) % MCV 95.1 H (79.4-94.8) fl MCH 30.6 (25.6-32.2) pg MCHC 32.2 (32.2-35.5) g/dl RDW Std Deviation 45.6 (36.4-46.3) fL Plt Count 328 (182-369) K/mm3 MPV 9.0 L (9.4-12.3) fl Neut % (Auto) 68.1 (34.0-71.1) % Lymph % (Auto) 19.6 (19.3-51.7) % Delta % (Auto) 9.0 (4.7-12.5) % Eos % (Auto) 2.7 (0.7-5.8) Baso % (Auto) 0.2 (0.1-1.2) % Neut # (Auto) 7.28 H (1.56-6.13) K/mm3 Lymph # (Auto) 2.09 (1.18-3.74) K/mm3 Delta # (Auto) 0.96 H (0.24-0.36) K/mm3 Eos # (Auto) 0.29 (0.04-0.36) K/mm3 Baso # (Auto) 0.02 (0.01-0.08) K/mm3 Sodium (136-145) mEq/L Potassium (3.5-5.1) mEq/L Chloride (98-107) mEq/L Carbon Dioxide (21-32) mEq/L Anion Gap (5-15) BUN (7-18) mg/dL Creatinine (0.55-1.02) mg/dL Est Cr Clr Drug Dosing mL/min Estimated GFR (MDRD) (>60) mL/min BUN/Creatinine Ratio (14-18) Glucose (74-106) mg/dL POC Glucose 62 L (70-105) mg/dL Calcium (8.5-10.1) mg/dL Magnesium (1.8-2.4) mg/dl Total Bilirubin (0.2-1.0) mg/dL AST (15-37) U/L ALT (14-59) U/L Alkaline Phosphatase (46-116) U/L Total Protein (6.4-8.2) g/dl Albumin (3.4-5.0) g/dl Globulin gm/dL Albumin/Globulin Ratio (1-2) Adenovirus (PCR) Not detected (Not Detected) B. pertussis DNA (PCR) Not detected (Not Detected) B.parapertussis DNA PCR Not detected (Not Detected) C. pneumoniae DNA (PCR) Not detected (Not Detected) Coronavirus (PCR) Not detected (Not Detected) Human Metapneumovir PCR Not detected (Not Detected) Influenza A (RT-PCR) Not detected (Not Detected) Influenza B (RT-PCR) Not detected (Not Detected) M. pneumoniae (PCR) Not detected (Not Detected) Parainfluen 1,2,3,4 PCR Not detected (Not Detected) RSV (PCR) Not detected (Not Detected) Entero/Rhino (PCR) Not detected (Not Detected) 05/05/19 05/05/19 05/05/19 Range/Units 05:24 12:34 17:31 WBC (3.98-10.04) K/mm3 RBC (3.98-5.22) M/mm3 Hgb (11.2-15.7) gm/dl Hct (34.1-44.9) % MCV (79.4-94.8) fl MCH (25.6-32.2) pg MCHC (32.2-35.5) g/dl RDW Std Deviation (36.4-46.3) fL Plt Count (182-369) K/mm3 MPV (9.4-12.3) fl Neut % (Auto) (34.0-71.1) % Lymph % (Auto) (19.3-51.7) % Delta % (Auto) (4.7-12.5) % Eos % (Auto) (0.7-5.8) Baso % (Auto) (0.1-1.2) % Neut # (Auto) (1.56-6.13) K/mm3 Lymph # (Auto) (1.18-3.74) K/mm3 Delta # (Auto) (0.24-0.36) K/mm3 Eos # (Auto) (0.04-0.36) K/mm3 Baso # (Auto) (0.01-0.08) K/mm3 Sodium 139 (136-145) mEq/L Potassium 3.4 L (3.5-5.1) mEq/L Chloride 106 (98-107) mEq/L Carbon Dioxide 22 (21-32) mEq/L Anion Gap 14.4 (5-15) BUN 4 L (7-18) mg/dL Creatinine 0.4 L (0.55-1.02) mg/dL Est Cr Clr Drug Dosing 180.81 mL/min Estimated GFR (MDRD) > 60 (>60) mL/min BUN/Creatinine Ratio 10.0 L (14-18) Glucose 71 L (74-106) mg/dL POC Glucose 91 111 H (70-105) mg/dL Calcium 8.3 L (8.5-10.1) mg/dL Magnesium 1.7 L (1.8-2.4) mg/dl Total Bilirubin 0.4 (0.2-1.0) mg/dL AST 28 (15-37) U/L ALT 15 (14-59) U/L Alkaline Phosphatase 109 (46-116) U/L Total Protein 5.6 L (6.4-8.2) g/dl Albumin 1.9 L (3.4-5.0) g/dl Globulin 3.7 gm/dL Albumin/Globulin Ratio 0.5 L (1-2) Adenovirus (PCR) (Not Detected) B. pertussis DNA (PCR) (Not Detected) B.parapertussis DNA PCR (Not Detected) C. pneumoniae DNA (PCR) (Not Detected) Coronavirus (PCR) (Not Detected) Human Metapneumovir PCR (Not Detected) Influenza A (RT-PCR) (Not Detected) Influenza B (RT-PCR) (Not Detected) M. pneumoniae (PCR) (Not Detected) Parainfluen 1,2,3,4 PCR (Not Detected) RSV (PCR) (Not Detected) Entero/Rhino (PCR) (Not Detected) Med Orders - Current: Current Medications Acetaminophen/Codeine Phosphate (Tylenol With Codeine No.3 300mg/30mg) 1 tab PO Q4H PRN PRN Reason: Pain Last Admin: 05/05/19 12:37 Dose: 1 tab Bisacodyl (Dulcolax) 10 mg RECTAL DAILY PRN PRN Reason: Constipation Last Admin: 05/02/19 15:24 Dose: 10 mg Famotidine (Pepcid) 20 mg IV Q12H PRN PRN Reason: Heartburn Last Admin: 05/01/19 09:46 Dose: 20 mg Lactated Ringer's (Ringers, Lactated) 1,000 mls @ 125 mls/hr IV ASDIRECTED [facility] Last Admin: 05/05/19 17:49 Dose: 125 mls/hr Lidocaine (Aspercreme 4%) 1 each TOP DAILY [facility] Last Admin: 05/05/19 08:45 Dose: 1 each Magnesium Oxide (Magnesium Oxide) 400 mg PO BID [facility] Last Admin: 05/05/19 08:46 Dose: 400 mg Methyl Salicylate (Icy Hot Cream) 0 gm TOP Q2HR PRN PRN Reason: Pain Miscellaneous Information (Remove Patch) 1 ea TRDERM BEDTIME [facility] Last Admin: 05/04/19 23:33 Dose: 1 ea Morphine Sulfate (Morphine) 2 mg IVPUSH Q4H PRN PRN Reason: Pain Last Admin: 05/04/19 14:28 Dose: 2 mg Ondansetron HCl (Zofran) 4 mg IV Q4H PRN PRN Reason: Nausea/Vomiting Last Admin: 04/29/19 11:06 Dose: 4 mg Pantoprazole Sodium (Protonix) 40 mg PO DAILY [facility] Last Admin: 05/05/19 08:46 Dose: 40 mg Polyethylene Glycol (Miralax) 17 gm PO DAILY [facility] Last Admin: 05/05/19 08:44 Dose: 17 gm Potassium Chloride (Klor-Con M20) 40 meq PO BID [facility] Last Admin: 05/05/19 08:57 Dose: 40 meq Prenat Multivit/[place]/Iron/Folic Ac ( Plus Iron) 1 each PO DAILY [facility] Last Admin: 05/05/19 08:45 Dose: 1 each Senna/Docusate Sodium (Senna Plus) 2 tab PO BEDTIME [facility] Last Admin: 05/04/19 21:51 Dose: 2 tab Simethicone (Simethicone) 80 mg PO Q4H PRN PRN Reason: Gas Last Admin: 05/04/19 06:56 Dose: 80 mg Sodium Chloride (Saline Flush) 0 ml FLUSH Q12HR [facility] Last Admin: 05/05/19 14:41 Dose: Not Given Trolamine Salicylate (Aspercreme 10%) 0 gm TOP Q1H PRN PRN Reason: Pain in Flank Discontinued Medications Acetaminophen/Codeine Phosphate (Tylenol With Codeine No.3 300mg/30mg) 2 tab PO Q6H PRN PRN Reason: Pain Last Admin: 05/02/19 18:08 Dose: 2 tab Al Hydroxide/Mg Hydroxide 30 (ml/ Lidocaine HCl 15 ml) 0 ml PO ONETIME ONE Stop: 04/28/19 18:55 Last Admin: 04/28/19 19:29 Dose: 45 ml Famotidine (Pepcid) 20 mg IVPUSH ONETIME ONE Stop: 04/28/19 18:50 Last Admin: 04/28/19 19:30 Dose: 20 mg Fentanyl (Sublimaze) 25 mcg IVPUSH Q1H PRN PRN Reason: Abdominal Pain Last Admin: 04/29/19 01:43 Dose: 25 mcg Fentanyl (Sublimaze) 50 mcg IVPUSH Q1H PRN PRN Reason: Abdominal Pain Last Admin: 04/29/19 09:26 Dose: 50 mcg Hydromorphone HCl (Dilaudid) 0.25 mg IVPUSH Q1H PRN PRN Reason: Abdominal Pain Last Admin: 05/01/19 08:59 Dose: 0.25 mg Lactated Ringer's (Ringers, Lactated) 1,000 mls @ 999 mls/hr IV .BOLUS ONE Stop: 04/28/19 19:50 Last Admin: 04/28/19 19:30 Dose: 999 mls/hr Lactated Ringer's (Ringers, Lactated) 1,000 mls @ 200 mls/hr IV ASDIRECTED [facility] Last Admin: 04/29/19 06:06 Dose: 200 mls/hr Potassium Chloride/Sodium Chloride (Normal Saline With 20 Meq Kcl) 1,000 mls @ 125 mls/hr IV ASDIRECTED [facility] Last Admin: 04/29/19 10:57 Dose: 125 mls/hr Potassium Chloride/Dextrose/Sod Cl (D5 1/2 Ns W/ 20 Meq/L Kcl) 1,000 mls @ 100 mls/hr IV ASDIRECTED [facility] Last Admin: 05/01/19 03:05 Dose: 100 mls/hr Acetaminophen (Ofirmev) 100 mls @ 400 mls/hr IV Q6HR PRN PRN Reason: Pain Stop: 05/02/19 12:15 Acetaminophen (Ofirmev) 100 mls @ 400 mls/hr IV Q6H PRN PRN Reason: Pain Stop: 05/02/19 12:15 Acetaminophen (Ofirmev) 65 mls @ 400 mls/hr IV Q4H PRN PRN Reason: Pain Stop: 05/02/19 13:55 Last Admin: 05/01/19 14:07 Dose: 260 mls/hr Lactated Ringer's (Ringers, Lactated) 1,000 mls @ 125 mls/hr IV ASDIRECTED [facility] Stop: 05/01/19 21:54 Last Infusion: 05/01/19 22:35 Dose: 75 mls/hr Magnesium Sulfate 4 gm/ Premix 50 mls @ 12.5 mls/hr IV ONETIME ONE Stop: 05/01/19 18:29 Last Admin: 05/01/19 14:43 Dose: 12.5 mls/hr Potassium Phosphate 30 mmole/ (Sodium Chloride) 260 mls @ 52 mls/hr IV ONETIME ONE Stop: 05/01/19 19:29 Last Admin: 05/01/19 14:42 Dose: 52 mls/hr Sodium Chloride (Normal Saline) 500 mls @ 100 mls/hr IV ASDIRECTED [facility] Last Admin: 05/01/19 15:04 Dose: 100 mls/hr Lactated Ringer's (Ringers, Lactated) 1,000 mls @ 75 mls/hr IV ASDIRECTED [facility] Last Infusion: 05/03/19 17:05 Dose: Infused Lactated Ringer's (Ringers, Lactated) 1,000 mls @ 999 mls/hr IV .BOLUS STA Stop: 05/03/19 17:01 Last Admin: 05/03/19 17:09 Dose: 999 mls/hr Lactated Ringer's (Ringers, Lactated) 1,000 mls @ 100 mls/hr IV ASDIRECTED [facility] Magnesium Sulfate 4 gm/ Premix 50 mls @ 12.5 mls/hr IV ONETIME STA Stop: 05/03/19 20:00 Last Admin: 05/03/19 17:09 Dose: 12.5 mls/hr Magnesium Sulfate 4 gm/ Premix 50 mls @ 12.5 mls/hr IV ONETIME STA Stop: 05/04/19 13:16 Last Admin: 05/04/19 09:55 Dose: 12.5 mls/hr Potassium Chloride 10 meq/ (Premix) 100 mls @ 100 mls/hr IV Q1H STA Stop: 05/04/19 10:16 Last Admin: 05/04/19 09:51 Dose: 100 mls/hr Magnesium Sulfate 4 gm/ Premix 100 mls @ 25 mls/hr IV ONETIME ONE Stop: 05/05/19 07:23 Last Admin: 05/05/19 08:45 Dose: 25 mls/hr Magnesium Oxide (Magnesium Oxide) 400 mg PO ONETIME ONE Stop: 05/02/19 19:42 Last Admin: 05/02/19 21:33 Dose: 400 mg Magnesium Oxide (Magnesium Oxide) 400 mg PO Q6H STA Stop: 05/04/19 09:18 Last Admin: 05/04/19 09:46 Dose: 400 mg Methyl Salicylate (Analgesic [place]) 0 gm TOP Q2HR PRN PRN Reason: Pain Morphine Sulfate (Morphine) 1 mg IVPUSH Q2H PRN PRN Reason: Pain Last Admin: 05/01/19 14:03 Dose: 1 mg Potassium Chloride (Klor-Con M20) 40 meq PO ONETIME ONE Stop: 04/29/19 07:22 Last Admin: 04/29/19 09:28 Dose: 40 meq Potassium Chloride (Klor-Con M20) 20 meq PO DAILY [facility] Last Admin: 05/02/19 15:27 Dose: 20 meq Potassium Chloride (Klor-Con M20) 40 meq PO ONETIME ONE Stop: 05/02/19 19:39 Last Admin: 05/02/19 21:33 Dose: 40 meq Potassium Chloride (Klor-Con M20) 40 meq PO Q6H STA Stop: 05/04/19 09:18 Last Admin: 05/04/19 09:46 Dose: 40 meq Sodium Chloride (Saline Flush) 10 ml FLUSH Q12HR [facility] Last Admin: 05/02/19 21:34 Dose: Not Given Trolamine Salicylate (Aspercreme 10%) 1 gm TOP Q1H PRN PRN Reason: Pain in Flank - Exam General: Alert, Oriented, Cooperative, No Acute Distress HEENT: Mucous Membr. Moist/[place] Neck: Supple Lungs: Normal Respiratory Effort, Decreased Breath Sounds (still decreased to bases) Cardiovascular: Regular Rate, Regular Rhythm GI/Abdominal Exam: Tender (Mild tenderness in the LUQ), Abnormal Bowel Sounds ( decreased bowel sounds) (Female) Exam: Enlarged Uterus Back Exam: Normal Inspection, Full Range of Motion Extremities: Pedal Edema (trace pitting edema pretibial this evening. No calf tenderness and no ropey masses. ) Skin: Warm, Dry, Intact Neurological: No New Focal Deficit Psy/Mental Status: Alert, Normal Affect, Normal Mood Sepsis Event Note - Evaluation Sepsis Screening Result: No Definite Risk - Focused Exam Vital Signs: Vital Signs Temp Pulse Resp BP Pulse Ox 05/05/19 17:32 36.6 C 95 16 110/75 98 05/05/19 12:24 36.7 C 83 15 97/50 L 97 05/05/19 09:02 36.3 C 85 17 107/63 97 Date Exam was Performed: 05/05/19 Time Exam was Performed: 18:53 - Problem List & Annotations (1) Acute pancreatitis SNOMED Code(s): 734109971 Code(s): K85.90 - ACUTE PANCREATITIS WITHOUT NECROSIS OR INFECTION, UNSP Status: Acute Priority: High Current Visit: Yes (2) 33 weeks gestation of SNOMED Code(s): 63058140 Code(s): Z3A.33 - 33 WEEKS GESTATION OF Status: Acute Priority : High Current Visit: Yes (3) Status post cholecystectomy SNOMED Code(s): 322761704, 60773316, 513890914 Code(s): Z90.49 - ACQUIRED ABSENCE OF OTHER SPECIFIED PARTS OF DIGESTIVE TRACT Status: Acute Priority: Medium Current Visit: Yes (4) GERD (gastroesophageal reflux disease) SNOMED Code(s): 305865994 Code(s): K21.9 - GASTRO-ESOPHAGEAL REFLUX DISEASE WITHOUT ESOPHAGITIS Status: Acute Priority: High Current Visit: Yes Qualifiers: Esophagitis presence: esophagitis presence not specified Qualified Code(s) : K21.9 - Gastro-esophageal reflux disease without esophagitis (5) Hypokalemia SNOMED Code(s): 41942880 Code(s): E87.6 - HYPOKALEMIA Status: Acute Priority: High Current Visit : Yes (6) Hypomagnesemia SNOMED Code(s): 869358852 Code(s): E83.42 - HYPOMAGNESEMIA Status: Acute Priority: High Current Visit: Yes (7) Anemia affecting SNOMED Code(s): 66024356 Code(s): O99.019 - ANEMIA COMPLICATING , UNSPECIFIED TRIMESTER Status: Acute Current Visit: Yes - Problem List Review Problem List Initiated/Reviewed/Updated: Yes - My Orders Last 24 Hours: My Active Orders 05/05/19 13:10 Consult to Hose Stripper [CONS] Routine 05/05/19 Dinner Regular Diet [DIET] - Assessment Assessment:: Assessment and plan 1. Acute pancreatitis - WBC is down a bit to 10.68. Afebrile. Pain is controlled mostly with PO tylenol #3, using less. Her pain now continues to be left flank, worse with deep breaths and movement, but less severe than yesterday Continue IS and encourage ambulation. Tolerating clear fluids, full fluids and has had solid foods this evening that she is tolerating. No nausea and no increased pain after eating today.Repeat MRI abdomen yesterday did not reveal any complications and looked better. 2. Fluid status -Continues to have good urine output. STill getting IV fluids. Creatinine and BUN stable. She is taking PO fluids now and tolerating. Continue to monitor urine output. BP and pulse stable. 3. GERD - on IV Pepcid q 12 hour and po pantoprazole. 4. Hypokalemia - K+ today 3.4. Mag level is 1.7, She has been getting IV KCl and IV Mag and also started PO KCl and PO mag and increased to BID. Repeat labs in am. 5. Ileus - has had a couple small loose stools today and passing gas. Will continue Miralax daily, prn dulcolax supp. Continue Senekot-S nightly to help counteract the narcotic effect on the bowel. Encourage ambulation. Simethicone as needed for gas pains. 6. Anemia - Hgb 10.0 today. Restarted vitamin yesterday. will check iron levels in am with labs. 7. at 34 +4 weeks - NST from this am is reactive. No contractions today. Jessica Harris MD [id number] 05/04/19 - Plan Plan:: Acute pancreatitis Patient came in with severe abdominal pain Previous cholecystectomy in 2010 with negative MRCP Admitted for supportive care Pain controlled Patient continues to have intermittent pain and is unable to tolerate full liquid diet, on physical exam she has exquisite tenderness over the upper left flank will start Aspercreme to rule out superficial pain If bloos work continues to be abdomal and patient is still unable to tolerate po will do abdominal CT in the AM PLAN - Advance diet as tolerated - Aspercreme on flank - Tylenol #3 and morphine for pain, avoid morphine as much as possible High anion gap metabolic acidosis Hypomagnesemia/Hypophosphatemia/Hypokalemia Potassium has been replaced with IVF for 3 days Magnesium and phosphate level today significantly low PLAN - LR bolus - Magnesium 4g supplementation - KCL 40meq Hypertriglyceridemia Concern for hypertriglyceridemia pancreatitis ruled out TG count 221 PLAN - recommend diet and lifestyle modifications as an outpatient upon discharge 33 weeks gestation of Primary team to follow No distress or any changes as per nursing CODE STATUS: FULL CODE PROPHYLAXIS & DISPOSITION PER PRIMARY TEAM
[2019-05-06] MEDS: Acetaminophen/Codeine 300-30 MG Tab PO PRN ×2 (00:40→05:17)
[2019-05-06] MEDS: Morphine 2 MG/ML Syringe IVPUSH PRN (01:53)
[2019-05-06] MEDS ORDERED: Magnesium Sulfate/Water 4 GM in Premix Bag 1 BAG IV ONE (07:59)
--- NOTE | 2019-05-06 08:02 | PCM.CONSN ---
- General Info Date of Service: 05/06/19 Admission Dx/Problem (Free Text): Patient Status Order with Admit Dx/Problem 04/28/19 17:21 Patient Status [ADT] Routine Admission Diagnosis/Problem Admission Diagnosis/Problem Acute pancreatitis Subjective Update: In to see Kelsie. She reports her pain is much better today - 05/01. It is more lateral today than yesterday. She reported some worsening pain last night after supper but thinks this is due to her being overly aggressive with supper once her diet was opened up. Esol Instructor did see her and we discussed some of the things she was told. She has no concerns and has been tolerating her diet well today. Functional Status: Reports: Pain Controlled, Tolerating Diet, Ambulating, Urinating, Incentive Spirometry. Denies: New Symptoms - Review of Systems General: Reports: No Symptoms. Denies: Fever, Weakness, Fatigue, Malaise, Chills HEENT: Reports: No Symptoms. Denies: Headaches, Sore Throat Pulmonary: Reports: No Symptoms. Denies: Shortness of Breath, Pleuritic Chest Pain, Cough, Sputum Cardiovascular: Reports: No Symptoms. Denies: Chest Pain, Palpitations, Dyspnea on Exertion Gastrointestinal: Reports: Abdominal Pain (mild left flank - 05/01). Denies: Constipation, Diarrhea, Nausea, Vomiting Genitourinary: Reports: No Symptoms. Denies: Pain Musculoskeletal: Reports: No Symptoms Skin: Reports: No Symptoms. Denies: Cyanosis Neurological: Reports: No Symptoms. Denies: Confusion, Pre-Existing Deficit, Difficulty Walking, Gait Disturbance Psychiatric: Reports: No Symptoms - Patient Data Vitals - Most Recent: Last Vital Signs Temp 98.2 F 05/06/19 00:43 Pulse 92 05/06/19 00:43 Resp 16 05/06/19 00:43 BP 113/67 05/06/19 00:43 Pulse Ox 97 05/06/19 00:43 Weight - Most Recent: 201 lb 5 oz I&O - Last 24 Hours: Intake & Output 05/05/19 05/06/19 05/06/19 22:59 06:59 14:59 Intake Total 2987 1600 Output Total 1925 2200 Balance 1062 -600 Lab Results Last 24 Hours: Laboratory Results - last 24 hr 01/14/20 01/14/20 01/15/20 Range/Units 12:34 17:31 05:20 WBC 9.10 (3.98-10.04) K/mm3 RBC 3.37 L (3.98-5.22) M/mm3 Hgb 10.4 L (11.2-15.7) gm/dl Hct 32.2 L (34.1-44.9) % MCV 95.5 H (79.4-94.8) fl MCH 30.9 (25.6-32.2) pg MCHC 32.3 (32.2-35.5) g/dl RDW Std Deviation 45.1 (36.4-46.3) fL Plt Count 357 (182-369) K/mm3 MPV 9.1 L (9.4-12.3) fl Neut % (Auto) 65.0 (34.0-71.1) % Lymph % (Auto) 23.8 (19.3-51.7) % Coleman % (Auto) 8.0 (4.7-12.5) % Eos % (Auto) 2.6 (0.7-5.8) Baso % (Auto) 0.1 (0.1-1.2) % Neut # (Auto) 5.90 (1.56-6.13) K/mm3 Lymph # (Auto) 2.17 (1.18-3.74) K/mm3 Coleman # (Auto) 0.73 H (0.24-0.36) K/mm3 Eos # (Auto) 0.24 (0.04-0.36) K/mm3 Baso # (Auto) 0.01 (0.01-0.08) K/mm3 Sodium (136-145) mEq/L Potassium (3.5-5.1) mEq/L Chloride (98-107) mEq/L Carbon Dioxide (21-32) mEq/L Anion Gap (5-15) BUN (7-18) mg/dL Creatinine (0.55-1.02) mg/dL Est Cr Clr Drug Dosing mL/min Estimated GFR (MDRD) (>60) mL/min BUN/Creatinine Ratio (14-18) Glucose (74-106) mg/dL POC Glucose 91 111 H (70-105) mg/dL Calcium (8.5-10.1) mg/dL Magnesium (1.8-2.4) mg/dl Total Bilirubin (0.2-1.0) mg/dL AST (15-37) U/L ALT (14-59) U/L Alkaline Phosphatase (46-116) U/L Total Protein (6.4-8.2) g/dl Albumin (3.4-5.0) g/dl Globulin gm/dL Albumin/Globulin Ratio (1-2) 20 Range/Units 05:20 WBC (3.98-10.04) K/mm3 RBC (3.98-5.22) M/mm3 Hgb (11.2-15.7) gm/dl Hct (34.1-44.9) % MCV (79.4-94.8) fl MCH (25.6-32.2) pg MCHC (32.2-35.5) g/dl RDW Std Deviation (36.4-46.3) fL Plt Count (182-369) K/mm3 MPV (9.4-12.3) fl Neut % (Auto) (34.0-71.1) % Lymph % (Auto) (19.3-51.7) % Coleman % (Auto) (4.7-12.5) % Eos % (Auto) (0.7-5.8) Baso % (Auto) (0.1-1.2) % Neut # (Auto) (1.56-6.13) K/mm3 Lymph # (Auto) (1.18-3.74) K/mm3 Coleman # (Auto) (0.24-0.36) K/mm3 Eos # (Auto) (0.04-0.36) K/mm3 Baso # (Auto) (0.01-0.08) K/mm3 Sodium 137 (136-145) mEq/L Potassium 3.9 (3.5-5.1) mEq/L Chloride 105 (98-107) mEq/L Carbon Dioxide 21 (21-32) mEq/L Anion Gap 14.9 (5-15) BUN 2 L (7-18) mg/dL Creatinine 0.4 L (0.55-1.02) mg/dL Est Cr Clr Drug Dosing 180.81 mL/min Estimated GFR (MDRD) > 60 (>60) mL/min BUN/Creatinine Ratio 5.0 L (14-18) Glucose 73 L (74-106) mg/dL POC Glucose (70-105) mg/dL Calcium 8.5 (8.5-10.1) mg/dL Magnesium 1.7 L (1.8-2.4) mg/dl Total Bilirubin 0.4 (0.2-1.0) mg/dL AST 30 (15-37) U/L ALT 18 (14-59) U/L Alkaline Phosphatase 115 (46-116) U/L Total Protein 5.9 L (6.4-8.2) g/dl Albumin 2.0 L (3.4-5.0) g/dl Globulin 3.9 gm/dL Albumin/Globulin Ratio 0.5 L (1-2) Med Orders - Current: Current Medications Acetaminophen/Codeine Phosphate (Tylenol With Codeine No.3 300mg/30mg) 1 tab PO Q4H PRN PRN Reason: Pain Last Admin: 05/06/19 05:17 Dose: 1 tab Bisacodyl (Dulcolax) 10 mg RECTAL DAILY PRN PRN Reason: Constipation Last Admin: 05/02/19 15:24 Dose: 10 mg Famotidine (Pepcid) 20 mg IV Q12H PRN PRN Reason: Heartburn Last Admin: 05/01/19 09:46 Dose: 20 mg Lactated Ringer's (Ringers, Lactated) 1,000 mls @ 125 mls/hr IV ASDIRECTED [facility] Last Admin: 05/05/19 17:49 Dose: 125 mls/hr Magnesium Sulfate 4 gm/ Premix 100 mls @ 25 mls/hr IV ONETIME ONE Stop: 05/06/19 08:00 Lidocaine (Aspercreme 4%) 1 each TOP DAILY [facility] Last Admin: 05/05/19 08:45 Dose: 1 each Magnesium Oxide (Magnesium Oxide) 400 mg PO BID [facility] Last Admin: 05/05/19 20:08 Dose: 400 mg Methyl Salicylate (Icy Hot Cream) 0 gm TOP Q2HR PRN PRN Reason: Pain Miscellaneous Information (Remove Patch) 1 ea TRDERM BEDTIME [facility] Last Admin: 05/05/19 22:00 Dose: 1 ea Morphine Sulfate (Morphine) 2 mg IVPUSH Q4H PRN PRN Reason: Pain Last Admin: 05/06/19 01:53 Dose: 2 mg Ondansetron HCl (Zofran) 4 mg IV Q4H PRN PRN Reason: Nausea/Vomiting Last Admin: 04/29/19 11:06 Dose: 4 mg Pantoprazole Sodium (Protonix) 40 mg PO DAILY [facility] Last Admin: 05/05/19 08:46 Dose: 40 mg Polyethylene Glycol (Miralax) 17 gm PO DAILY [facility] Last Admin: 05/05/19 08:44 Dose: 17 gm Potassium Chloride (Klor-Con M20) 40 meq PO BID [facility] Last Admin: 05/05/19 20:08 Dose: 40 meq Prenat Multivit/Bulk Truck Driver/Iron/Folic Ac ( Plus Iron) 1 each PO DAILY [facility] Last Admin: 05/05/19 08:45 Dose: 1 each Senna/Docusate Sodium (Senna Plus) 2 tab PO BEDTIME [facility] Last Admin: 05/05/19 20:08 Dose: 2 tab Simethicone (Simethicone) 80 mg PO Q4H PRN PRN Reason: Gas Last Admin: 05/04/19 06:56 Dose: 80 mg Sodium Chloride (Saline Flush) 0 ml FLUSH Q12HR [facility] Last Admin: 05/05/19 14:41 Dose: Not Given Trolamine Salicylate (Aspercreme 10%) 0 gm TOP Q1H PRN PRN Reason: Pain in Flank Discontinued Medications Acetaminophen/Codeine Phosphate (Tylenol With Codeine No.3 300mg/30mg) 2 tab PO Q6H PRN PRN Reason: Pain Last Admin: 05/02/19 18:08 Dose: 2 tab Al Hydroxide/Mg Hydroxide 30 (ml/ Lidocaine HCl 15 ml) 0 ml PO ONETIME ONE Stop: 04/28/19 18:55 Last Admin: 04/28/19 19:29 Dose: 45 ml Famotidine (Pepcid) 20 mg IVPUSH ONETIME ONE Stop: 04/28/19 18:50 Last Admin: 04/28/19 19:30 Dose: 20 mg Fentanyl (Sublimaze) 25 mcg IVPUSH Q1H PRN PRN Reason: Abdominal Pain Last Admin: 04/29/19 01:43 Dose: 25 mcg Fentanyl (Sublimaze) 50 mcg IVPUSH Q1H PRN PRN Reason: Abdominal Pain Last Admin: 04/29/19 09:26 Dose: 50 mcg Hydromorphone HCl (Dilaudid) 0.25 mg IVPUSH Q1H PRN PRN Reason: Abdominal Pain Last Admin: 05/01/19 08:59 Dose: 0.25 mg Lactated Ringer's (Ringers, Lactated) 1,000 mls @ 999 mls/hr IV .BOLUS ONE Stop: 04/28/19 19:50 Last Admin: 04/28/19 19:30 Dose: 999 mls/hr Lactated Ringer's (Ringers, Lactated) 1,000 mls @ 200 mls/hr IV ASDIRECTED [facility] Last Admin: 04/29/19 06:06 Dose: 200 mls/hr Potassium Chloride/Sodium Chloride (Normal Saline With 20 Meq Kcl) 1,000 mls @ 125 mls/hr IV ASDIRECTED [facility] Last Admin: 04/29/19 10:57 Dose: 125 mls/hr Potassium Chloride/Dextrose/Sod Cl (D5 1/2 Ns W/ 20 Meq/L Kcl) 1,000 mls @ 100 mls/hr IV ASDIRECTED [facility] Last Admin: 05/01/19 03:05 Dose: 100 mls/hr Acetaminophen (Ofirmev) 100 mls @ 400 mls/hr IV Q6HR PRN PRN Reason: Pain Stop: 05/02/19 12:15 Acetaminophen (Ofirmev) 100 mls @ 400 mls/hr IV Q6H PRN PRN Reason: Pain Stop: 05/02/19 12:15 Acetaminophen (Ofirmev) 65 mls @ 400 mls/hr IV Q4H PRN PRN Reason: Pain Stop: 05/02/19 13:55 Last Admin: 05/01/19 14:07 Dose: 260 mls/hr Lactated Ringer's (Ringers, Lactated) 1,000 mls @ 125 mls/hr IV ASDIRECTED [facility] Stop: 05/01/19 21:54 Last Infusion: 05/01/19 22:35 Dose: 75 mls/hr Magnesium Sulfate 4 gm/ Premix 50 mls @ 12.5 mls/hr IV ONETIME ONE Stop: 05/01/19 18:29 Last Admin: 05/01/19 14:43 Dose: 12.5 mls/hr Potassium Phosphate 30 mmole/ (Sodium Chloride) 260 mls @ 52 mls/hr IV ONETIME ONE Stop: 05/01/19 19:29 Last Admin: 05/01/19 14:42 Dose: 52 mls/hr Sodium Chloride (Normal Saline) 500 mls @ 100 mls/hr IV ASDIRECTED [facility] Last Admin: 05/01/19 15:04 Dose: 100 mls/hr Lactated Ringer's (Ringers, Lactated) 1,000 mls @ 75 mls/hr IV ASDIRECTED [facility] Last Infusion: 05/03/19 17:05 Dose: Infused Lactated Ringer's (Ringers, Lactated) 1,000 mls @ 999 mls/hr IV .BOLUS STA Stop: 05/03/19 17:01 Last Admin: 05/03/19 17:09 Dose: 999 mls/hr Lactated Ringer's (Ringers, Lactated) 1,000 mls @ 100 mls/hr IV ASDIRECTED [facility] Magnesium Sulfate 4 gm/ Premix 50 mls @ 12.5 mls/hr IV ONETIME STA Stop: 05/03/19 20:00 Last Admin: 05/03/19 17:09 Dose: 12.5 mls/hr Magnesium Sulfate 4 gm/ Premix 50 mls @ 12.5 mls/hr IV ONETIME ST[facility] Stop: 05/04/19 13:16 Last Admin: 05/04/19 09:55 Dose: 12.5 mls/hr Potassium Chloride 10 meq/ (Premix) 100 mls @ 100 mls/hr IV Q1H [facility] Stop: 05/04/19 10:16 Last Admin: 05/04/19 09:51 Dose: 100 mls/hr Magnesium Sulfate 4 gm/ Premix 100 mls @ 25 mls/hr IV ONETIME ONE Stop: 05/05/19 07:23 Last Admin: 05/05/19 08:45 Dose: 25 mls/hr Magnesium Oxide (Magnesium Oxide) 400 mg PO ONETIME ONE Stop: 05/02/19 19:42 Last Admin: 05/02/19 21:33 Dose: 400 mg Magnesium Oxide (Magnesium Oxide) 400 mg PO Q6H [facility] Stop: 05/04/19 09:18 Last Admin: 05/04/19 09:46 Dose: 400 mg Methyl Salicylate (Analgesic [place]) 0 gm TOP Q2HR PRN PRN Reason: Pain Morphine Sulfate (Morphine) 1 mg IVPUSH Q2H PRN PRN Reason: Pain Last Admin: 05/01/19 14:03 Dose: 1 mg Potassium Chloride (Klor-Con M20) 40 meq PO ONETIME ONE Stop: 04/29/19 07:22 Last Admin: 04/29/19 09:28 Dose: 40 meq Potassium Chloride (Klor-Con M20) 20 meq PO DAILY [facility] Last Admin: 05/02/19 15:27 Dose: 20 meq Potassium Chloride (Klor-Con M20) 40 meq PO ONETIME ONE Stop: 05/02/19 19:39 Last Admin: 05/02/19 21:33 Dose: 40 meq Potassium Chloride (Klor-Con M20) 40 meq PO Q6H [facility] Stop: 05/04/19 09:18 Last Admin: 05/04/19 09:46 Dose: 40 meq Sodium Chloride (Saline Flush) 10 ml FLUSH Q12HR [facility] Last Admin: 05/02/19 21:34 Dose: Not Given Trolamine Salicylate (Aspercreme 10%) 1 gm TOP Q1H PRN PRN Reason: Pain in Flank - Exam Quality Assessment: DVT Prophylaxis General: Alert, Oriented, Cooperative, No Acute Distress HEENT: Pupils Equal, Pupils Reactive, Mucous Membr. Moist/[place] Neck: Supple, Trachea Midline Lungs: Clear to Auscultation, Normal Respiratory Effort Cardiovascular: Regular Rate, Regular Rhythm GI/Abdominal Exam: Normal Bowel Sounds, Soft, No Organomegaly, Tender (Mild tenerness to left flank. ), Other ( ) (Female) Exam: Deferred Back Exam: Normal Inspection, Full Range of Motion Extremities: Normal Inspection, Normal Range of Motion, Non-Tender, No Pedal Edema, Normal Capillary Refill Skin: Warm, Dry, Intact Neurological: No New Focal Deficit Psy/Mental Status: Alert, Normal Affect, Normal Mood Sepsis Event Note - Evaluation Sepsis Screening Result: No Definite Risk - Focused Exam Vital Signs: Vital Signs Temp Pulse Resp BP Pulse Ox 05/06/19 00:43 98.2 F 92 16 113/67 97 05/05/19 22:11 98.4 F 90 16 112/72 99 Date Exam was Performed: 05/06/19 Time Exam was Performed: 11:44 Consult PN Assessment/Plan Procedures: Procedures ASSAY OF FERRITIN (01/08/19) ASSAY OF IRON (01/08/19) ASSAY THYROID STIM HORMONE (12/26/18) BLOOD TYPING SEROLOGIC ABO (10/09/18) BLOOD TYPING SEROLOGIC RH(D) (10/09/18) CHORIONIC GONADOTROPIN TEST (10/09/18) COMPLETE CBC W/AUTO DIFF WBC (03/18/19) GLUCOSE TEST (03/18/19) HEPATITIS C AB TEST (12/26/18) HIV-1 AG W/HIV-1 & HIV-2 AB (12/26/18) METABOLIC PANEL TOTAL CA (01/08/19) OB US >/= 14 WKS SNGL FETUS (02/05/19) RBC ANTIBODY SCREEN (10/09/18) ROUTINE VENIPUNCTURE (03/18/19) SMEAR WET [place] SALINE/INK (12/29/18) SYPHILIS TEST NON-TREP QUAL (03/18/19) TRICHOMONAS ASSAY W/OPTIC (12/29/18) URINALYSIS AUTO W/O SCOPE (12/26/18) URINE CULTURE/COLONY COUNT (12/26/18) VARICELLA-ZOSTER ANTIBODY (12/26/18) (1) 33 weeks gestation of SNOMED Code(s): 26601803 Code(s): Z3A.33 - 33 WEEKS GESTATION OF Priority: High Current Visit: Yes (2) Acute pancreatitis SNOMED Code(s): 072208551 Code(s): K85.90 - ACUTE PANCREATITIS WITHOUT NECROSIS OR INFECTION, UNSP Priority: High Current Visit: Yes (3) High anion gap metabolic acidosis SNOMED Code(s): 19572407 Code(s): E87.2 - ACIDOSIS Priority: High Current Visit: Yes (4) Hypertriglyceridemia SNOMED Code(s): 166845193 Code(s): E78.1 - PURE HYPERGLYCERIDEMIA Priority: High Current Visit: Yes (5) Hypokalemia SNOMED Code(s): 51257975 Code(s): E87.6 - HYPOKALEMIA Priority: High Current Visit: Yes (6) Hypomagnesemia SNOMED Code(s): 647728986 Code(s): E83.42 - HYPOMAGNESEMIA Priority: High Current Visit: Yes (7) Hypophosphatemia SNOMED Code(s): 9758888 Code(s): E83.39 - OTHER DISORDERS OF PHOSPHORUS METABOLISM Priority: High Current Visit: Yes (8) Status post cholecystectomy SNOMED Code(s): 448751724, 03910592, 042239676 Code(s): Z90.49 - ACQUIRED ABSENCE OF OTHER SPECIFIED PARTS OF DIGESTIVE TRACT Priority: Medium Current Visit: Yes (9) Hypoalbuminemia SNOMED Code(s): 520213611 Code(s): E88.09 - OTH DISORDERS OF PLASMA-PROTEIN METABOLISM, NEC Priority : High Current Visit: Yes Problem List Initiated/Reviewed/Updated: Yes My Orders Last 24 Hours: My Active Orders 05/05/19 09:00 Magnesium Oxide 400 mg PO BID Potassium Chloride [Klor-Con M20] 40 meq PO BID 05/06/19 07:59 Magnesium Sulfate/Water [Magnesium Sulfate in Water Premix] 4 gm Premix Bag 1 bag IV ONETIME Plan: Acute pancreatitis Patient came in with severe abdominal pain Previous cholecystectomy in 2010 with negative MRCP Admitted for supportive care Pain controlled Patient continues to have intermittent pain, although it is improving. She has been advanced to regular diet and tolerating this. Repeat abdominal MRI on 05/04/18 shows improvement PLAN - Monitor tolerance to diet - Aspercreme on flank PRN - Tylenol #3 and morphine for pain, avoid morphine as much as possible - Esol Instructor consult for pancreatic diet S/P High anion gap metabolic acidosis Hypomagnesemia/Hypoalbuminemia S/P hypophosphatemia and hypokalemia Potassium has been replaced with IVF for several days Worsened by poor oral intake Magnesium level today remains low/unchanged PLAN - Discontinue LR maintenance fluid - Magnesium 4g supplementation, continue scheduled PO supplementation inpatient - KCL 40meq scheduled PO supplementation inpatient - Esol Instructor consult Hypertriglyceridemia Concern for hypertriglyceridemia pancreatitis ruled out TG count 221 PLAN - recommend diet and lifestyle modifications as an outpatient upon discharge - Esol Instructor consult 33 weeks gestation of Primary team to follow No distress or any changes as per nursing CODE STATUS: FULL CODE PROPHYLAXIS & DISPOSITION PER PRIMARY TEAM Discharge Recommendations Recommend discontinuing electrolyte supplementation at discharge. Recommend outpatient urine potassium, sodium, magnesium, phosphorous, creatinine , urea, protein, and Chloride AFTER patient has been off supplementation for at least a week. Recommend outpatient repeat serum BMP, magnesium, potassium, and urea outpatient AFTER patient has been off supplementation for at least a week. Consider Sphincter or Oddi dysfunction if symptoms continue. Patient may benefit from GI follow-up after discharge. This is especially true if symptoms return. Recommend continued low fat/pancreatic diet. Suggest switching PPI to famotidine at discharge as discussed. Thank you for allowing us to participate in the care of this patient!!
[2019-05-06] MEDS: Magnesium Oxide 400 MG Tab PO SCH (08:54)
[2019-05-06] MEDS: Pantoprazole 40 MG Tab.CR PO SCH (08:55)
[2019-05-06] MEDS: Polyethylene Glycol 3350 Powder 17 GM Packet PO SCH (08:55)
[2019-05-06] MEDS: Potassium Chloride 20 MEQ Tab.ER PO SCH (08:55)
[2019-05-06] MEDS: Prenatal Multivitamin with Calcium/Folic Acid/Iron Tab PO SCH (08:55)
[2019-05-06] MEDS: Sodium Chloride 0.9% 10 ML Syringe FLUSH SCH ×2 (08:56→09:58)
[2019-05-06] MEDS: Lidocaine 4% 1 each Patch TOP SCH (08:56)
--- NOTE | 2019-05-06 12:26 | PCM.DCSUM1 ---
Discharge Summary - Hospital Course Free Text/Narrative:: 28 yo A2 female at 33 weeks and 4 days gestation presented for evaluation of upper abdominal pain. She states that it started during the night, but when she woke up at 6:30 am she was feeling upper abdominal pain that radiated through to her back. It is a constant pain and is worse on the right side. The pain is aggravated by eating or drinking. She also has increased pain with deep breaths, laughing or going over bumps when she was driving in to the hospital. She denies nausea or vomiting or diarrhea. She is feeling hungry, but trying to eat or drink anything causes an increase in her pain. She rated her pain as 6-7/10. She did have a cholecystectomy about 8 years ago after her last baby delivered. She had gallbladder attacks during that and was hospitalized a number of times with her last . She denies fever or chills. She denies any alcohol use. She has been using a heating pad which helped some. We gave her a pantoprazole when she first came in to the hospital that didn't seem to help. I then gave her a GI cocktail and then Pepcid 20 mg IV which did help relieve some of her discomfort, but still a constant pain that is worse with standing, walking and deep breaths. She is rating her pain now as 3-4/10. She has been having a lot of heartburn with her , worse in the last couple of weeks. She has not been feeling any contractions and baby has been moving well. Her NST is reactive and no contractions noted. Evaluation revealed significant elevation of lipase, consistent with an acute pancreatitis. Abdominal ultrasound was done , but pancreas was poorly visualized. No dilation of CBD and liver appeared wnl. She was admitted as inpatient for acute pancreatitis and hospitalist was consulted to co-manage. She was initially kept NPO, treated with IV Fentanyl which did not keep her pain under control and we switched to IV dilaudid that did help much better. We also treated her with IV pepcid bid and po pantoprazole since she had been having a lot of heartburn with her . She has had no nausea or vomiting. Her lipase level peaked at 5594 on 04/30/19 and CRP peaked at 18.9 on 05/02/19. WBC was elevated and peaked at 18.10 on and slowly came down and at discharge was 9.10. She never had any fever. Her pain meds were switched to IV morphine and po tylenol #3 on 05/01/19. She had been getting increased pain with infusion of IV dilaudid but that did not happen with the IV morphine. Her pain has slowly improved and has moved from initially RUQ, right flank and epigastrium to LUQ and left flank. By 05/02/19 her lipase level was down to 789 and we started her on clear fluids. She initially noticed increased RUQ pain with po, but that did resolve and then full fluid diet was started once she was tolerating clear fluids without pain. She was started on full diet, low fat on 05/05/19 and she tolerated that but with the first meal ate too much and did end up having increased pain. On she tolerated full diet with no increase in pain. She has only been using a couple tabs of tylenol #3 a day for the last couple of days. She rates her pain as 0-1/10 most of the day but was up to 5/10 last night after eating too much at supper. Couturiere consulted with her on 05/05/19 and gave written instructions on pancreatic diet and advancing diet. She did have pancreas MRI on 04/30/19 that did not show any complicating process with the pancreas and no stones or obstruction in the CBD. There was mild ascites noted. Repeat MRI of pancreas was done on 05/04/19 due to persistent elevated WBC and elevated AG and again no complicating pancreatic process and looked better than the previous imaging. Her K+, Mag and phosphorous levels have been low and she has been getting IV K+ and IV mag and was also started on PO Mag and K+ supplements and we restarted her PNV. She has also been anemic with Hgb 10.4 at discharge. She has been doing IS since admission and using SCD's. We started stool softeners, Miralax and Senekot and she has been having bowel movements the last several days. She has also been using some simethicone for gas pains. She has been using a lidocaine patch on the LUQ and that has helped with her pain as well. has been stable, doing daily NST and they have been reactive. She has not had any labor symptoms. Diagnosis: Stroke: No Modified Tim Scale: No Symptoms at All Modified [place] Scale Score: 0 - Discharge Data Discharge Date: 05/06/19 Discharge Disposition: Home, Self-Care 01 Condition: Good - Referral to Home Health Primary Care Physician: Jessica Harris MD - Discharge Diagnosis/Problem(s) (1) Acute pancreatitis SNOMED Code(s): 768132690 ICD Code: K85.90 - ACUTE PANCREATITIS WITHOUT NECROSIS OR INFECTION, UNSP Status: Acute Priority: High Current Visit: Yes (2) Status post cholecystectomy SNOMED Code(s): 650810399, 15927491, 033742853 ICD Code: Z90.49 - ACQUIRED ABSENCE OF OTHER SPECIFIED PARTS OF DIGESTIVE TRACT Status: Acute Priority: Medium Current Visit: Yes (3) GERD (gastroesophageal reflux disease) SNOMED Code(s): 725281045 ICD Code: K21.9 - GASTRO-ESOPHAGEAL REFLUX DISEASE WITHOUT ESOPHAGITIS Status: Acute Priority: High Current Visit: Yes Qualifiers: Esophagitis presence: esophagitis presence not specified Qualified Code(s) : K21.9 - Gastro-esophageal reflux disease without esophagitis (4) Hypokalemia SNOMED Code(s): 24926303 ICD Code: E87.6 - HYPOKALEMIA Status: Acute Priority: High Current Visit: Yes (5) Hypomagnesemia SNOMED Code(s): 736198354 ICD Code: E83.42 - HYPOMAGNESEMIA Status: Acute Priority: High Current Visit: Yes (6) Anemia affecting SNOMED Code(s): 47706241 ICD Code: O99.019 - ANEMIA COMPLICATING , UNSPECIFIED TRIMESTER Status: Acute Current Visit: Yes (7) 34 weeks gestation of SNOMED Code(s): 40001523 ICD Code: Z3A.34 - 34 WEEKS GESTATION OF Status: Acute Current Visit: Yes - Patient Summary/Data Consults: Consultations 04/28/19 22:18 Consult to Physician [CONS] Urgent 05/05/19 13:10 Consult to Couturiere [CONS] Routine - Patient Instructions Diet: Regular Diet as Tolerated (Low fat choices), Drink 8-10+ Glasses/Day Activity: As Tolerated Driving: May Drive Today Showering/Bathing: May Shower Notify Provider of: Fever, Increased Pain, Nausea and/or Vomiting - Discharge Plan *PRESCRIPTION DRUG MONITORING PROGRAM REVIEWED*: Yes *COPY OF PRESCRIPTION DRUG MONITORING REPORT IN PATIENT XOCHILT: Not Applicable Prescriptions/Med Rec: Acetaminophen with Codeine [Tylenol with Codeine #3 Tablet] 1 each PO Q4HR PRN # 10 tablet PRN Reason: Pain Acetaminophen/Codeine [Tylenol with Codeine No.3 300MG/30MG] 1 tab PO Q4H PRN # 10 tablet PRN Reason: Pain Famotidine 20 mg PO BID #60 tablet Lidocaine 4% [Aspercreme 4%] 1 each TOP DAILY #10 patch Home Medications: Home Meds Acetaminophen with Codeine [Tylenol with Codeine #3 Tablet] 1 each PO Q4HR PRN # 10 tablet 05/06/19 [Rx] Acetaminophen/Codeine [Tylenol with Codeine No.3 300MG/30MG] 1 tab PO Q4H PRN # 10 tablet 05/06/19 [Rx] Docusate Sodium/Sennosides [Senna Plus] 2 tab PO BEDTIME tablet 05/06/19 [Rx] Famotidine 20 mg PO BID #60 tablet 05/06/19 [Rx] Lidocaine 4% [Aspercreme 4%] 1 each TOP DAILY #10 patch 05/06/19 [Rx] Polyethylene Glycol 3350 [MiraLAX] 17 gm PO DAILY packet 05/06/19 [Rx] Vit with Ca/FA/Iron [ Plus Iron] 1 each PO DAILY tablet [Rx] Simethicone 80 mg PO Q4H PRN tab.chew 05/06/19 [Rx] Trolamine Salicylate/Aloe Vera [Aspercreme 10%] 0 gm TOP Q1H PRN tube 05/06/19 [Rx] Oxygen Therapy Mode: Room Air Patient Handouts: Heartburn During , and Anemia, Anemia, Potassium Content of Foods, Acute Pancreatitis - Discharge Summary/Plan Comment DC Time >30 min.: Yes (Discussion and coordination with hospitalist and scheduling outpatient FU) Discharge Summary/Plan Comment: 1. Patient will be discharged on low fat diet, push fluids. Continue vitamin. 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 2. Use Tylenol #3 if needed for more severe pain, she can try plain tylenol for mild discomfort. Script for #10 Tylenol #3 sent to her pharmacy. Will also have her continue Lidocaine patches on the LUQ as needed. 3. Continue bowel regimen of stool softeners, Miralax daily and Senekot-S 2 at bedtime until back to regular diet and stooling normally. 4. For GERD, will have her take Pepcid (Famotidine) 20 mg bid and let me know if that is not controlling her heartburn. 5. She will not be released to work at this time and reevaluated at her follow up visit in the clinic on 05/14/19. 6. Will order urine for sodium, potassium, magnesium, phosphorous, urea, creatinine, protein and chloride and also blood levels of those before follow up appointment next week. We are doing this to make sure that she is not wasting electrolytes that would have contributed to her low levels during the hospital. 7. BPP to be done on 05/14/19 to evaluate growth and presentation in preparation for TOLAC. - General Info Date of Service: 05/06/19 Admission Dx/Problem (Free Text: Patient Status Order with Admit Dx/Problem 04/28/19 17:21 Patient Status [ADT] Routine Admission Diagnosis/Problem Admission Diagnosis/Problem Acute pancreatitis Subjective Update: Patient is doing well and feeling good today, ready to go home. She did have some increased pain last night after eating too much of the supper tray. She took it slow with breakfast this am and lunch and has had no increased pain. Her pain will be on the LUQ and left flank area when it comes, but much less severe and doesn't have the constant pain that she had initially. She has had a BM today, using her incentive spirometer. Baby has been active and NST reactive this am. Functional Status: Reports: Pain Controlled, Tolerating Diet, Ambulating, Urinating, Incentive Spirometry Numeric/FACES Score: 1 - Review of Systems General: Reports: No Symptoms HEENT: Reports: No Symptoms Pulmonary: Reports: No Symptoms Cardiovascular: Reports: No Symptoms Gastrointestinal: Reports: No Symptoms Genitourinary: Reports: No Symptoms Musculoskeletal: Reports: No Symptoms Skin: Reports: No Symptoms Neurological: Reports: No Symptoms Psychiatric: Reports: No Symptoms - Patient Data Vitals - Most Recent: Last Vital Signs Temp 36.7 C 05/06/19 08:30 Pulse 90 05/06/19 08:30 Resp 14 05/06/19 08:30 BP 108/65 05/06/19 08:30 Pulse Ox 98 05/06/19 08:30 Weight - Most Recent: 91.314 kg I&O - Last 24 hours: Intake & Output 05/05/19 05/06/19 05/06/19 22:59 06:59 14:59 Intake Total 2987 1600 1180 Output Total 1925 2200 300 Balance 1062 -600 880 Lab Results - Last 24 hrs: Laboratory Results - last 24 hr 05/05/19 05/05/19 05/06/19 Range/Units 12:34 17:31 05:20 WBC 9.10 (3.98-10.04) K/mm3 RBC 3.37 L (3.98-5.22) M/mm3 Hgb 10.4 L (11.2-15.7) gm/dl Hct 32.2 L (34.1-44.9) % MCV 95.5 H (79.4-94.8) fl MCH 30.9 (25.6-32.2) pg MCHC 32.3 (32.2-35.5) g/dl RDW Std Deviation 45.1 (36.4-46.3) fL Plt Count 357 (182-369) K/mm3 MPV 9.1 L (9.4-12.3) fl Neut % (Auto) 65.0 (34.0-71.1) % Lymph % (Auto) 23.8 (19.3-51.7) % [place] % (Auto) 8.0 (4.7-12.5) % Eos % (Auto) 2.6 (0.7-5.8) Baso % (Auto) 0.1 (0.1-1.2) % Neut # (Auto) 5.90 (1.56-6.13) K/mm3 Lymph # (Auto) 2.17 (1.18-3.74) K/mm3 [place] # (Auto) 0.73 H (0.24-0.36) K/mm3 Eos # (Auto) 0.24 (0.04-0.36) K/mm3 Baso # (Auto) 0.01 (0.01-0.08) K/mm3 Sodium (136-145) mEq/L Potassium (3.5-5.1) mEq/L Chloride (98-107) mEq/L Carbon Dioxide (21-32) mEq/L Anion Gap (5-15) BUN (7-18) mg/dL Creatinine (0.55-1.02) mg/dL Est Cr Clr Drug Dosing mL/min Estimated GFR (MDRD) (>60) mL/min BUN/Creatinine Ratio (14-18) Glucose (74-106) mg/dL POC Glucose 91 111 H (70-105) mg/dL Calcium (8.5-10.1) mg/dL Magnesium (1.8-2.4) mg/dl Iron (50-170) ug/dL Ferritin (8-252) ng/ml Total Bilirubin (0.2-1.0) mg/dL AST (15-37) U/L ALT (14-59) U/L Alkaline Phosphatase (46-116) U/L Total Protein (6.4-8.2) g/dl Albumin (3.4-5.0) g/dl Globulin gm/dL Albumin/Globulin Ratio (1-2) 05/06/19 05/06/19 05/06/19 Range/Units 05:20 05:20 09:03 WBC (3.98-10.04) K/mm3 RBC (3.98-5.22) M/mm3 Hgb (11.2-15.7) gm/dl Hct (34.1-44.9) % MCV (79.4-94.8) fl MCH (25.6-32.2) pg MCHC (32.2-35.5) g/dl RDW Std Deviation (36.4-46.3) fL Plt Count (182-369) K/mm3 MPV (9.4-12.3) fl Neut % (Auto) (34.0-71.1) % Lymph % (Auto) (19.3-51.7) % [place] % (Auto) (4.7-12.5) % Eos % (Auto) (0.7-5.8) Baso % (Auto) (0.1-1.2) % Neut # (Auto) (1.56-6.13) K/mm3 Lymph # (Auto) (1.18-3.74) K/mm3 [place] # (Auto) (0.24-0.36) K/mm3 Eos # (Auto) (0.04-0.36) K/mm3 Baso # (Auto) (0.01-0.08) K/mm3 Sodium 137 (136-145) mEq/L Potassium 3.9 (3.5-5.1) mEq/L Chloride 105 (98-107) mEq/L Carbon Dioxide 21 (21-32) mEq/L Anion Gap 14.9 (5-15) BUN 2 L (7-18) mg/dL Creatinine 0.4 L (0.55-1.02) mg/dL Est Cr Clr Drug Dosing 180.81 mL/min Estimated GFR (MDRD) > 60 (>60) mL/min BUN/Creatinine Ratio 5.0 L (14-18) Glucose 73 L (74-106) mg/dL POC Glucose 70 (70-105) mg/dL Calcium 8.5 (8.5-10.1) mg/dL Magnesium 1.7 L (1.8-2.4) mg/dl Iron 61 (50-170) ug/dL Ferritin 81 (8-252) ng/ml Total Bilirubin 0.4 (0.2-1.0) mg/dL AST 30 (15-37) U/L ALT 18 (14-59) U/L Alkaline Phosphatase 115 (46-116) U/L Total Protein 5.9 L (6.4-8.2) g/dl Albumin 2.0 L (3.4-5.0) g/dl Globulin 3.9 gm/dL Albumin/Globulin Ratio 0.5 L (1-2) Med Orders - Current: Current Medications Acetaminophen/Codeine Phosphate (Tylenol With Codeine No.3 300mg/30mg) 1 tab PO Q4H PRN PRN Reason: Pain Last Admin: 05/06/19 05:17 Dose: 1 tab Bisacodyl (Dulcolax) 10 mg RECTAL DAILY PRN PRN Reason: Constipation Last Admin: 05/02/19 15:24 Dose: 10 mg Famotidine (Pepcid) 20 mg IV Q12H PRN PRN Reason: Heartburn Last Admin: 05/01/19 09:46 Dose: 20 mg Lidocaine (Aspercreme 4%) 1 each TOP DAILY MELVIN Last Admin: 05/06/19 08:56 Dose: 1 each Magnesium Oxide (Magnesium Oxide) 400 mg PO BID MELVIN Last Admin: 05/06/19 08:54 Dose: 400 mg Methyl Salicylate (Icy Hot Cream) 0 gm TOP Q2HR PRN PRN Reason: Pain Miscellaneous Information (Remove Patch) 1 ea TRDERM BEDTIME [facility] Last Admin: 05/05/19 22:00 Dose: 1 ea Morphine Sulfate (Morphine) 2 mg IVPUSH Q4H PRN PRN Reason: Pain Last Admin: 05/06/19 01:53 Dose: 2 mg Ondansetron HCl (Zofran) 4 mg IV Q4H PRN PRN Reason: Nausea/Vomiting Last Admin: 04/29/19 11:06 Dose: 4 mg Pantoprazole Sodium (Protonix) 40 mg PO DAILY [facility] Last Admin: 05/06/19 08:55 Dose: 40 mg Polyethylene Glycol (Miralax) 17 gm PO DAILY [facility] Last Admin: 05/06/19 08:55 Dose: 17 gm Potassium Chloride (Klor-Con M20) 40 meq PO DAILY [facility] Prenat Multivit/Williams/Iron/Folic Ac ( Plus Iron) 1 each PO DAILY [facility] Last Admin: 05/06/19 08:55 Dose: 1 each Senna/Docusate Sodium (Senna Plus) 2 tab PO BEDTIME [facility] Last Admin: 05/05/19 20:08 Dose: 2 tab Simethicone (Simethicone) 80 mg PO Q4H PRN PRN Reason: Gas Last Admin: 05/04/19 06:56 Dose: 80 mg Sodium Chloride (Saline Flush) 0 ml FLUSH Q12HR [facility] Last Admin: 05/06/19 09:58 Dose: 10 ml Trolamine Salicylate (Aspercreme 10%) 0 gm TOP Q1H PRN PRN Reason: Pain in Flank Discontinued Medications Acetaminophen/Codeine Phosphate (Tylenol With Codeine No.3 300mg/30mg) 2 tab PO Q6H PRN PRN Reason: Pain Last Admin: 05/02/19 18:08 Dose: 2 tab Al Hydroxide/Mg Hydroxide 30 (ml/ Lidocaine HCl 15 ml) 0 ml PO ONETIME ONE Stop: 04/28/19 18:55 Last Admin: 04/28/19 19:29 Dose: 45 ml Famotidine (Pepcid) 20 mg IVPUSH ONETIME ONE Stop: 04/28/19 18:50 Last Admin: 04/28/19 19:30 Dose: 20 mg Fentanyl (Sublimaze) 25 mcg IVPUSH Q1H PRN PRN Reason: Abdominal Pain Last Admin: 04/29/19 01:43 Dose: 25 mcg Fentanyl (Sublimaze) 50 mcg IVPUSH Q1H PRN PRN Reason: Abdominal Pain Last Admin: 04/29/19 09:26 Dose: 50 mcg Hydromorphone HCl (Dilaudid) 0.25 mg IVPUSH Q1H PRN PRN Reason: Abdominal Pain Last Admin: 05/01/19 08:59 Dose: 0.25 mg Lactated Ringer's (Ringers, Lactated) 1,000 mls @ 999 mls/hr IV .BOLUS ONE Stop: 04/28/19 19:50 Last Admin: 04/28/19 19:30 Dose: 999 mls/hr Lactated Ringer's (Ringers, Lactated) 1,000 mls @ 200 mls/hr IV ASDIRECTED [facility] Last Admin: 04/29/19 06:06 Dose: 200 mls/hr Potassium Chloride/Sodium Chloride (Normal Saline With 20 Meq Kcl) 1,000 mls @ 125 mls/hr IV ASDIRECTED [facility] Last Admin: 04/29/19 10:57 Dose: 125 mls/hr Potassium Chloride/Dextrose/Sod Cl (D5 1/2 Ns W/ 20 Meq/L Kcl) 1,000 mls @ 100 mls/hr IV ASDIRECTED [facility] Last Admin: 05/01/19 03:05 Dose: 100 mls/hr Acetaminophen (Ofirmev) 100 mls @ 400 mls/hr IV Q6HR PRN PRN Reason: Pain Stop: 05/02/19 12:15 Acetaminophen (Ofirmev) 100 mls @ 400 mls/hr IV Q6H PRN PRN Reason: Pain Stop: 05/02/19 12:15 Acetaminophen (Ofirmev) 65 mls @ 400 mls/hr IV Q4H PRN PRN Reason: Pain Stop: 05/02/19 13:55 Last Admin: 05/01/19 14:07 Dose: 260 mls/hr Lactated Ringer's (Ringers, Lactated) 1,000 mls @ 125 mls/hr IV ASDIRECTED [facility] Stop: 05/01/19 21:54 Last Infusion: 05/01/19 22:35 Dose: 75 mls/hr Magnesium Sulfate 4 gm/ Premix 50 mls @ 12.5 mls/hr IV ONETIME ONE Stop: 05/01/19 18:29 Last Admin: 05/01/19 14:43 Dose: 12.5 mls/hr Potassium Phosphate 30 mmole/ (Sodium Chloride) 260 mls @ 52 mls/hr IV ONETIME ONE Stop: 05/01/19 19:29 Last Admin: 05/01/19 14:42 Dose: 52 mls/hr Sodium Chloride (Normal Saline) 500 mls @ 100 mls/hr IV ASDIRECTED MELVIN Last Admin: 05/01/19 15:04 Dose: 100 mls/hr Lactated Ringer's (Ringers, Lactated) 1,000 mls @ 75 mls/hr IV ASDIRECTED MELVIN Last Infusion: 05/03/19 17:05 Dose: Infused Lactated Ringer's (Ringers, Lactated) 1,000 mls @ 999 mls/hr IV .BOLUS STA Stop: 05/03/19 17:01 Last Admin: 05/03/19 17:09 Dose: 999 mls/hr Lactated Ringer's (Ringers, Lactated) 1,000 mls @ 100 mls/hr IV ASDIRECTED MELVIN Magnesium Sulfate 4 gm/ Premix 50 mls @ 12.5 mls/hr IV ONETIME STA Stop: 05/03/19 20:00 Last Admin: 05/03/19 17:09 Dose: 12.5 mls/hr Lactated Ringer's (Ringers, Lactated) 1,000 mls @ 125 mls/hr IV ASDIRECTED MELVIN Last Admin: 05/05/19 17:49 Dose: 125 mls/hr Magnesium Sulfate 4 gm/ Premix 50 mls @ 12.5 mls/hr IV ONETIME STA Stop: 05/04/19 13:16 Last Admin: 05/04/19 09:55 Dose: 12.5 mls/hr Potassium Chloride 10 meq/ (Premix) 100 mls @ 100 mls/hr IV Q1H STA Stop: 05/04/19 10:16 Last Admin: 05/04/19 09:51 Dose: 100 mls/hr Magnesium Sulfate 4 gm/ Premix 100 mls @ 25 mls/hr IV ONETIME ONE Stop: 05/05/19 07:23 Last Admin: 05/05/19 08:45 Dose: 25 mls/hr Magnesium Sulfate 4 gm/ Premix 100 mls @ 25 mls/hr IV ONETIME ONE Stop: 05/06/19 08:00 Last Admin: 05/06/19 08:57 Dose: 25 mls/hr Magnesium Oxide (Magnesium Oxide) 400 mg PO ONETIME ONE Stop: 05/02/19 19:42 Last Admin: 05/02/19 21:33 Dose: 400 mg Magnesium Oxide (Magnesium Oxide) 400 mg PO Q6H STA Stop: 05/04/19 09:18 Last Admin: 05/04/19 09:46 Dose: 400 mg Methyl Salicylate (Analgesic [place]) 0 gm TOP Q2HR PRN PRN Reason: Pain Morphine Sulfate (Morphine) 1 mg IVPUSH Q2H PRN PRN Reason: Pain Last Admin: 05/01/19 14:03 Dose: 1 mg Potassium Chloride (Klor-Con M20) 40 meq PO ONETIME ONE Stop: 04/29/19 07:22 Last Admin: 04/29/19 09:28 Dose: 40 meq Potassium Chloride (Klor-Con M20) 20 meq PO DAILY [facility] Last Admin: 05/02/19 15:27 Dose: 20 meq Potassium Chloride (Klor-Con M20) 40 meq PO ONETIME ONE Stop: 05/02/19 19:39 Last Admin: 05/02/19 21:33 Dose: 40 meq Potassium Chloride (Klor-Con M20) 40 meq PO Q6H STA Stop: 05/04/19 09:18 Last Admin: 05/04/19 09:46 Dose: 40 meq Potassium Chloride (Klor-Con M20) 40 meq PO BID [facility] Last Admin: 05/06/19 08:55 Dose: 40 meq Sodium Chloride (Saline Flush) 10 ml FLUSH Q12HR [facility] Last Admin: 05/02/19 21:34 Dose: Not Given Trolamine Salicylate (Aspercreme 10%) 1 gm TOP Q1H PRN PRN Reason: Pain in Flank - Exam General: Reports: Alert, Oriented, Cooperative, No Acute Distress HEENT: Reports: Pupils Equal, Pupils Reactive, Mucous Membr. Moist/Ubly Neck: Reports: Supple Lungs: Reports: Clear to Auscultation, Normal Respiratory Effort, Decreased Breath Sounds (Still decreased to bases, no crackles or wheezes.) Cardiovascular: Reports: Regular Rate, Regular Rhythm GI/Abdominal Exam: Tender (Mild tenderness in left flank), Abnormal Bowel Sounds (bowel sounds present but diminished) (Female) Exam: Enlarged Uterus, Heart Tones (reactive NST, moderate variability) Rectal (Female) Exam: Deferred Back Exam: Reports: Normal Inspection, Full Range of Motion Extremities: Normal Inspection, Pedal Edema (trace pitting edema pretibial. No calf tenderness or mass) Skin: Reports: Warm, Dry, Intact Neurological: Reports: No New Focal Deficit Psy/Mental Status: Reports: Alert, Normal Affect, Normal Mood
[2019-05-07] MEDS ORDERED: Potassium Chloride 20 MEQ Tab.ER PO SCH (09:00)
== END 2019-05-06 13:30 | disposition home or self-care (01) | DRG 566 ==
LOC: JD.OBCHECK 17:10 → JD.OB 17:10 → JD.OBCHECK 04-29 09:48 → JD.OB 04-29 09:49
PROVIDERS: ADMIT Family Medicine; ATTEND Family Medicine
DX: O99.613 Diseases of the digestive system complicating pregnancy, third trimester (principal); K85.90 Acute pancreatitis without necrosis or infection, unspecified; R18.8 Other ascites; E87.6 Hypokalemia; E83.42 Hypomagnesemia; K56.7 Ileus, unspecified; K21.9 Gastro-esophageal reflux disease without esophagitis; O99.013 Anemia complicating pregnancy, third trimester; O99.283 Endocrine, nutritional and metabolic diseases complicating pregnancy, third trimester; E87.2 Acidosis; E78.1 Pure hyperglyceridemia; E83.39 Other disorders of phosphorus metabolism; Z90.49 Acquired absence of other specified parts of digestive tract; Z79.899 Other long term (current) drug therapy; Z3A.33 33 weeks gestation of pregnancy
CPT/HCPCS: 36415; 36600; 59020; 59025; 71046; 71046-26; 74181; 74181-26; 76705; 76705-26; 80048; 80053; 80061; 81001; 82009; 82150; 82728; 82803; 82947; 82962; 83540; 83605; 83615; 83690; 83735; 84100; 84132; 85007; 85025; 85027; 86140; 87486; 87581; 87632; 87798; A9270-GY; J0131; J1170; J2270; J2405; J3010; J3475; J3480; J3490; J7030; J7050; J7120

== ENCOUNTER 2019-06-09 12:08 | Inpatient (IN) | payer BC ==
[~2019-06-09 12:08] MED LIST: Bupivacaine 0.25% 10 ML SDV ONE
[2019-06-09] MEDS ORDERED: Sodium Chloride 0.9% 10 ML Syringe FLUSH PRN (12:20)
[2019-06-09] MEDS ORDERED: Nalbuphine 10 MG/ML Syringe IVPUSH PRN (12:20)
[2019-06-09] MEDS ORDERED: Ondansetron 4 MG Tab.DIS PO PRN (12:20)
[2019-06-09] MEDS ORDERED: Oxytocin/Lactated Ringers 10 UNIT/1,000 ML BAG IV SCH ×2 (12:30)
--- NOTE | 2019-06-09 12:58 | PCM.LDHP ---
L&D History of Present Illness - General Date of Service: 06/09/19 Admit Problem/Dx: Patient Status Order with Admit Dx/Problem 06/09/19 12:21 Patient Status [ADT] Routine Admission Diagnosis/Problem Admission Diagnosis/Problem Source of Information: Patient History Limitations: Reports: No Limitations - History of Present Illness Introduction:: 28 yo A2 female at 39+4 weeks gestation in early labor. She has been having contractions since yesterday that are more regular and stronger this am. She has been timing them and they are about every 5-7 minutes apart, lasting 40-60 seconds and painful. She has to stop and breathe through them. She denies any leaking of fluid, no bloody discharge. Baby has been active. She had BPP last Saturday that scored 4/8, reactive NST and estimated weight 8 lb 8 oz. Repeat BPP on Saturday was 8/8 again with reactive NST. She is GBS positive. She will be a TOLAC. First baby delivered by due to breech presentation and spontaneous labor at 37 weeks. Discussed risks of uterine rupture with , she still wants to proceed. I did have her consult with Dr. Hernandez earlier in her specifically to discuss TOLAC and he agreed that it would be appropriate. I did contact Dr. Bowers, who is rayon coner for OB today to make her aware. Her was complicated by acute pancreatitis and was hospitalized for a week at 34 weeks gestation. She is careful about what she eats now and has been taking protonix daily and has not had a severe flare since her discharge. Her infectious disease screenings in early have been negative. 1 hour glucola was wnl. She did receive Flu shot and Tdap. Blood type is - Related Data Allergies/Adverse Reactions: Allergies Allergy/AdvReac Type Severity Reaction Status Date / Time tree nut Allergy Airway Verified 06/09/19 12:20 Tightness amoxicillin AdvReac Other Verified 06/09/19 12:20 Home Medications: Home Meds Vit with Ca/FA/Iron [ Plus Iron] 1 each PO DAILY tablet [Rx] Pantoprazole Sodium [Protonix] 40 mg PO DAILY 06/09/19 [History] Past Medical History Gastrointestinal History: Reports: Cholelithiasis, GERD, Pancreatitis (admitted to hospital at 34 weeks for hydration and pain management.) Other Gastrointestinal History: Cholecystectomy about 2010 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: , Spontaneous , Therapeutic Other OB/BYN History: 1 miscarriage and 1 TA Psychiatric History: Reports: Depression Other Psychiatric History: depression - Past Surgical History HEENT Surgical History: Reports: Myringotomy w Tube(s), Oral Surgery Female Surgical History: Reports: Section Social & Family History - Family History GI: Reports: Pancreatitis (Mother had pancreatitis this summer 2018, unknown etiology) - Tobacco Use Smoking Status *Q: Never Smoker - Living Situation & Occupation Living situation: Reports: Occupation: Employed (Teacher) H&P Review of Systems - Review of Systems: Review Of Systems: See Below General: Reports: Fatigue HEENT: Reports: No Symptoms Pulmonary: Reports: No Symptoms Cardiovascular: Reports: No Symptoms Gastrointestinal: Reports: No Symptoms Genitourinary: Reports: No Symptoms Musculoskeletal: Reports: No Symptoms Skin: Reports: No Symptoms Psychiatric: Reports: No Symptoms Neurological: Reports: No Symptoms Hematologic/Lymphatic: Reports: No Symptoms Immunologic: Reports: No Symptoms L&D Exam - Exam Exam: See Below - Vital Signs Weight: 89.63 kg - OB Specific Contraction Duration (sec): 40-60 Contraction Frequency (min): 5-7 Contraction Intensity: Mild to Moderate Movement: Active Heart Tones: Present Heart Tones per Min: 150 Heart Rate (FHR) Variability: Moderate (6-25 bmp) Presentation: Vertex Estimated Weight: 8 lb 8 oz - Youssef Score Youssef Score Cervix Position: Midposition Youssef Score Consistency: Soft Youssef Score Effacement: >80% Youssef Score Dilation: 1-2 cm Youssef Score 's Station: -1 ,0 Youssef Score Total: 9 - Exam General: Alert, Oriented, Mild Distress HEENT: Mucosa Moist & [place], Pupils Equal Neck: Supple Lungs: Clear to Auscultation, Normal Respiratory Effort Cardiovascular: Regular Rate, Regular Rhythm GI/Abdominal Exam: Normal Bowel Sounds, Soft, Non-Tender Rectal Exam: Deferred Genitourinary: Normal external exam Back Exam: Normal Inspection, Full Range of Motion Extremities: Normal Inspection, No Pedal Edema Skin: Warm, Dry, Intact Neurological: Cranial Nerves Intact, Reflexes Equal Bilateral Psychiatric: Alert, Normal Affect, Normal Mood - Patient Data Result Diagrams: 06/09/19 12:40 - Problem List (1) 39 weeks gestation of SNOMED Code(s): 56504753 ICD Code: Z3A.39 - 39 WEEKS GESTATION OF Status: Acute Current Visit: Yes (2) Group B streptococcal carriage complicating SNOMED Code(s): 988441346988858 ICD Code: O99.820 - STREPTOCOCCUS B CARRIER STATE COMPLICATING Status: Acute Current Visit: Yes (3) Encounter for trial of labor SNOMED Code(s): 225692594 ICD Code: [id number] - Status: Acute Current Visit: Yes Problem List Initiated/Reviewed/Updated: Yes Orders Last 24hrs: Active Orders 24 hr Category Date Time Status Patient Status [ADT] Routine ADT 06/09/19 12:21 Active Activity as Tolerated [RC] PFP Care 06/09/19 12:21 Active Communication Order [RC] ASDIRECTED Care 06/09/19 12:21 Active Heart Tones [RC] ASDIRECTED Care 06/09/19 12:21 Active Non Stress Test [RC] PER UNIT ROUTINE Care 06/09/19 12:21 Active Notify Provider [RC] PFP Care 06/09/19 12:21 Active Notify Provider [RC] PRN Care 06/09/19 12:21 Active Peripheral IV Care [RC] . DIRECTED Care 06/09/19 12:21 Active Vital Signs [RC] PER UNIT ROUTINE Care 06/09/19 12:21 Active Regular Diet [DIET] Diet 06/09/19 Lunch Active BLOOD BANK HOLD SPECIMEN [BBK] Stat Lab 06/09/19 12:20 Ordered CBC WITH AUTO DIFF [HEME] Stat Lab 06/09/19 12:40 Received RAPID PLASMA REAGIN,RPR [CHEM] Routine Lab 06/09/19 12:40 Received TYPE AND SCREEN [BBK] Routine Lab 06/09/19 12:48 Ordered Lactated Ringers [Ringers, Lactated] 1,000 ml Med 06/09/19 12:30 Active IV ASDIRECTED Ondansetron [Zofran ODT] Med 06/09/19 12:20 Active 4 mg PO Q4H PRN Oxytocin/Lactated Ringers [Pitocin in LR 10 Units/1,000 Med 06/09/19 12:30 Active ML] 10 unit in 1,000 ml IV .CONTINUOUS Oxytocin/Lactated Ringers [Pitocin in LR 10 Units/1,000 Med 06/09/19 12:30 Active ML] 10 unit in 1,000 ml IV TITRATE Pantoprazole [ProTONIX] Med 06/10/19 06:00 Ordered 40 mg PO ACBREAKFAST Penicillin G Potassium [Pfizerpen] 2.5 millunits Med 06/09/19 17:00 Active Sodium Chloride 0.9% [Normal Saline] 100 ml IV Q4H Penicillin G Potassium [Pfizerpen] 5 millunits Med 06/09/19 13:00 Active Sodium Chloride 0.9% [Normal Saline] 100 ml IV ONETIME Sodium Chloride 0.9% [Saline Flush] Med 06/09/19 12:20 Active 10 ml FLUSH ASDIRECTED PRN Electronic Heart Tones Ext w TOCO [WOMSER] Oth 06/09/19 12:21 Ordered Routine Electronic Heart Tones Internal [WOMSER] Per Unit Oth 06/09/19 12:21 Ordered Routine Peripheral IV Insertion Adult [OM.PC] Routine Ot 06/09/19 12:21 Ordered Resuscitation Status Routine Resus Stat 06/09/19 12:20 Ordered Medication Orders Lactated Ringer's (Ringers, Lactated) 1,000 mls @ 100 mls/hr IV ASDIRECTED MELVIN Oxytocin/Lactated Ringer's (Pitocin In Lr 10 Units/1,000 Ml) 10 unit in 1,000 mls @ 12 mls/hr IV TITRATE MELVIN; Protocol Oxytocin/Lactated Ringer's (Pitocin In Lr 10 Units/1,000 Ml) 10 unit in 1,000 mls @ 500 mls/hr IV .CONTINUOUS MELVIN Penicillin G Potassium 5 (millunits/ Sodium Chloride) 100 mls @ 100 mls/hr IV ONETIME ONE Stop: 06/09/19 13:59 Penicillin G Potassium 2.5 (millunits/ Sodium Chloride) 100 mls @ 200 mls/hr IV Q4H MELVIN Ondansetron HCl (Zofran Odt) 4 mg PO Q4H PRN PRN Reason: Nausea/Vomiting Sodium Chloride (Saline Flush) 10 ml FLUSH ASDIRECTED PRN PRN Reason: Keep Vein Open Assessment/Plan Comment:: 28 yo A2 at 39+4weeks gestation in early labor with definite change in her cervix from last week. Baby is estimated 8 lb 8oz. Currently 2 cm, 90%effaced, vtx and station -2. Contractions about every 5 to 7 minutes per patient report. Will admit to Labor and Delivery and start IV pitocin to augment contractions if needed. Plan AROM after 2nd dose of IV Pen G is hung. GBS positive - will use IV Pen G prophylaxis per protocol. TOLAC - will type and screen and sign consent. Dr. Bowers who is rayon coner for OB has been notified and is aware. History of acute pancreatitis in this at 34 weeks. She is stable at this time without symptoms. Plans to breastfeed - will encourage skin to skin after delivery and allow for self attachment if appropriate. Will need support and education.
[2019-06-09] MEDS ORDERED: Penicillin G Potassium 5 MILLUNITS in Sodium Chloride 0.9% 100 ML IV ONE (13:00)
[2019-06-09] MEDS: Lactated Ringers 1,000 ML IV SCH ×3 (13:09→17:53)
--- NOTE | 2019-06-09 13:55 | PCM.PREANE ---
Preanesthetic Assessment - Anesthesia/Transfusion/Family Hx Anesthesia History: Prior Anesthesia Without Reaction Transfusion History: No Prior Transfusion(s) - Review of Systems General: No Symptoms Pulmonary: No Symptoms Cardiovascular: No Symptoms Gastrointestinal: No Symptoms Neurological: No Symptoms Other: Reports: None - Physical Assessment NPO Status Date: 06/09/19 NPO Status Time: 10:00 Height: 1.63 m Weight: 89.63 kg ASA Class: 2 Mental Status: Alert & Oriented x3 Airway Class: Mallampati = 2 Dentition: Reports: Dentures (partial on upper incisors) Thyro-Mental Finger Breadths: 3 Mouth Opening Finger Breadths: 3 ROM/Head Extension: Full Lungs: Clear to Auscultation, Normal Respiratory Effort Cardiovascular: Regular Rate, Regular Rhythm - Lab Values: Laboratory Last Values WBC 9.50 K/mm3 (3.98-10.04) 06/09/19 12:40 RBC 3.72 M/mm3 (3.98-5.22) L 06/09/19 12:40 Hgb 11.7 gm/dl (11.2-15.7) 06/09/19 12:40 Hct 35.8 % (34.1-44.9) 06/09/19 12:40 MCV 96.2 fl (79.4-94.8) H 06/09/19 12:40 MCH 31.5 pg (25.6-32.2) 06/09/19 12:40 MCHC 32.7 g/dl (32.2-35.5) 06/09/19 12:40 RDW Std Deviation 47.3 fL (36.4-46.3) H 06/09/19 12:40 Plt Count 363 K/mm3 (182-369) 06/09/19 12:40 MPV 9.5 fl (9.4-12.3) 06/09/19 12:40 Neut % (Auto) 70.9 % (34.0-71.1) 06/09/19 12:40 Lymph % (Auto) 20.0 % (19.3-51.7) 06/09/19 12:40 Stone % (Auto) 7.8 % (4.7-12.5) 06/09/19 12:40 Eos % (Auto) 0.9 (0.7-5.8) 06/09/19 12:40 Baso % (Auto) 0.2 % (0.1-1.2) 06/09/19 12:40 Neut # (Auto) 6.73 K/mm3 (1.56-6.13) H 06/09/19 12:40 Lymph # (Auto) 1.90 K/mm3 (1.18-3.74) 06/09/19 12:40 Stone # (Auto) 0.74 K/mm3 (0.24-0.36) H 06/09/19 12:40 Eos # (Auto) 0.09 K/mm3 (0.04-0.36) 06/09/19 12:40 Baso # (Auto) 0.02 K/mm3 (0.01-0.08) 06/09/19 12:40 - Allergies Allergies/Adverse Reactions: Allergies Allergy/AdvReac Type Severity Reaction Status Date / Time tree nut Allergy Airway Verified 06/09/19 12:20 Tightness amoxicillin AdvReac Other Verified 06/09/19 12:20 - Acknowledgements Anesthesia Type Planned: Epidural Pt an Appropriate Candidate for the Planned Anesthesia: Yes Alternatives and Risks of Anesthesia Discussed w Pt/Guardian: Yes Pt/Guardian Understands and Agrees with Anesthesia Plan: Yes PreAnesthesia Questionnaire Gastrointestinal History: Reports: Cholelithiasis, GERD, Pancreatitis (admitted to hospital at 34 weeks for hydration and pain management.) Other Gastrointestinal History: Cholecystectomy about 2010 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: , Spontaneous , Therapeutic Other OB/BYN History: 1 miscarriage and 1 TA Psychiatric History: Reports: Depression Other Psychiatric History: depression Hematologic History: Reports: Anemia - Past Surgical History HEENT Surgical History: Reports: Myringotomy w Tube(s), Oral Surgery Female Surgical History: Reports: Section - SUBSTANCE USE Smoking Status *Q: Never Smoker - HOME MEDS Home Medications: Home Meds Vit with Ca/FA/Iron [ Plus Iron] 1 each PO DAILY tablet [Rx] - CURRENT (IN HOUSE) MEDS Current Meds: Current Medications Lactated Ringer's (Ringers, Lactated) 1,000 mls @ 100 mls/hr IV ASDIRECTED MELVIN Last Admin: 06/09/19 13:09 Dose: 100 mls/hr Oxytocin/Lactated Ringer's (Pitocin In Lr 10 Units/1,000 Ml) 10 unit in 1,000 mls @ 12 mls/hr IV TITRATE MELVIN; Protocol Last Admin: 06/09/19 13:10 Dose: 2 munits/min, 12 mls/hr Oxytocin/Lactated Ringer's (Pitocin In Lr 10 Units/1,000 Ml) 10 unit in 1,000 mls @ 500 mls/hr IV .CONTINUOUS MELVIN Penicillin G Potassium 5 (millunits/ Sodium Chloride) 100 mls @ 100 mls/hr IV ONETIME ONE Stop: 06/09/19 13:59 Last Admin: 06/09/19 13:12 Dose: 100 mls/hr Penicillin G Potassium 2.5 (millunits/ Sodium Chloride) 100 mls @ 200 mls/hr IV Q4H MELVIN Ondansetron HCl (Zofran Odt) 4 mg PO Q4H PRN PRN Reason: Nausea/Vomiting Pantoprazole Sodium (Protonix) 40 mg PO ACBREAKFAST MELVIN Sodium Chloride (Saline Flush) 10 ml FLUSH ASDIRECTED PRN PRN Reason: Keep Vein Open Discontinued Medications Nalbuphine HCl (Nubain) 10 mg IVPUSH Q2H PRN PRN Reason: Pain
[2019-06-09] MEDS ORDERED: diphenhydrAMINE 50 MG/ML SDV IVPUSH PRN (14:01)
[2019-06-09] MEDS ORDERED: ePHEDrine 50 MG/ML SDV IVPUSH PRN (14:01)
[2019-06-09] MEDS ORDERED: fentaNYL 100 MCG/2 ML SDV EPIDUR PRN (14:01)
[2019-06-09] MEDS: Bupivacaine/fentaNYL/NS 100 ML Bag EPIDUR PRN ×2 (16:07→22:07)
[2019-06-09] MEDS: Penicillin G Potassium 2.5 MILLUNITS in Sodium Chloride 0.9% 100 ML IV SCH ×2 (17:16→21:03)
--- NOTE | 2019-06-09 17:28 | PCM.PNLD ---
Labor Progress Note - VS & Meds Vital Signs: Last Vital Signs Temp 37.0 C 06/09/19 12:21 Pulse Resp 14 06/09/19 12:21 BP 117/69 06/09/19 12:21 Pulse Ox 99 06/09/19 12:21 Active Medications: Current Medications Diphenhydramine HCl (Benadryl) 25 mg IVPUSH Q6H PRN PRN Reason: pruritis Ephedrine Sulfate (Ephedrine Sulfate) 5 mg IVPUSH ASDIRECTED PRN PRN Reason: Hypotension Fentanyl (Sublimaze) 100 mcg EPIDUR Q3H PRN PRN Reason: Pain Last Admin: 06/09/19 16:07 Dose: 100 mcg Fentanyl/Bupivacaine HCl (Fentanyl/Bupivacaine/Ns 2 Mcg-0.125% 100 Ml) 100 ml EPIDUR ASDIRECTED PRN PRN Reason: Pain Last Admin: 06/09/19 16:07 Dose: 100 ml Lactated Ringer's (Ringers, Lactated) 1,000 mls @ 100 mls/hr IV ASDIRECTED MELVIN Last Admin: 06/09/19 16:30 Dose: 100 mls/hr Oxytocin/Lactated Ringer's (Pitocin In Lr 10 Units/1,000 Ml) 10 unit in 1,000 mls @ 12 mls/hr IV TITRATE MELVIN; Protocol Last Titration: 06/09/19 16:25 Dose: 2 munits/min, 12 mls/hr Oxytocin/Lactated Ringer's (Pitocin In Lr 10 Units/1,000 Ml) 10 unit in 1,000 mls @ 500 mls/hr IV .CONTINUOUS MELVIN Penicillin G Potassium 2.5 (millunits/ Sodium Chloride) 100 mls @ 200 mls/hr IV Q4H MELVIN Last Admin: 06/09/19 17:16 Dose: 200 mls/hr Ondansetron HCl (Zofran Odt) 4 mg PO Q4H PRN PRN Reason: Nausea/Vomiting Pantoprazole Sodium (Protonix) 40 mg PO ACBREAKFAST MELVIN Sodium Chloride (Saline Flush) 10 ml FLUSH ASDIRECTED PRN PRN Reason: Keep Vein Open Discontinued Medications Penicillin G Potassium 5 (millunits/ Sodium Chloride) 100 mls @ 100 mls/hr IV ONETIME ONE Stop: 06/09/19 13:59 Last Admin: 06/09/19 13:12 Dose: 100 mls/hr Nalbuphine HCl (Nubain) 10 mg IVPUSH Q2H PRN PRN Reason: Pain - Uterine Contractions Uterine Monitoring Mode: External [place] Contraction Frequency (min): 5 Contraction Duration (sec): 60-90 Contraction Intensity: Strong Uterine Resting Tone: Soft - Monitoring Monitor Mode: External Ultrasound Heart Rate (FHR) Baseline: 135 Heart Rate (FHR) Variability: Moderate (6-25 bmp) Accelerations: Present, 15x15 Decelerations: None Strip Review: Category I - Vaginal Exam Dilation (cm): 5 Effacement (Percent): 100 Station: 0 Cervical Position: Anterior Sterile Vaginal Exam Performed By: Jessica Harris Vaginal Exam Comment: AROM performed for clear fluid - Labor Progress (Free Text) Labor Progress: Patient has been having good strong contractions and FHR has been Category 1. Pitocin was started at 1500 at 1 mu/min and baby tolerated that. It was then increased to 2 mU/min at about 1630. She had an epidural placed at about 1630 and she is having good relief with that. She is due to have her second dose of Pen G now and is infusing. AROM performed at about 1715 for clear fluid. Assessment: Getting into active phase of labor. strip category I. GBS - 2nd dose of Pen G infusing now. Anticipate vaginal delivery.
[2019-06-10] MEDS ORDERED: Lidocaine 1% 50 ML MDV ONE (01:18)
--- NOTE | 2019-06-10 02:02 | PCM.DEL ---
L & D Note - General Info Date of Service: 06/10/19 Mother's Due Date: 06/12/19 - Delivery Note Labor: Spontaneous, Augmented by ARM, Augmented by Oxytocin Delivery Outcome: Livebirth Delivery Method: Spontaneous Vaginal Delivery-Single Infant Delivery Mode: Spontaneous Presentation: Left Occiput Anterior (SHER) Nuchal Cord: None Prep: Povidone-Iodine (Betadine Anesthesia Type: Epidural Amniotic Fluid Description: Clear Episiotomy Type: None Laceration: 1st Degree, Vaginal (Right vaginal side wall, small tear) Suture type: Vicryl Suture size: 3-0 Placenta: Intact, Spontaneous Cord: 3 Vessels Estimated Blood Loss: 100 Resuscitation Needed: No [place]: Suctioned, Bulb Syringe, Stimulated, Warmed, [place] Used Provider: Jessica Harris Score 1 min: 8 Score 5 min: 9 Delivery Comments (Free Text/Narrative):: 28 yo A2 female at 39+4 weeks gestation in early labor. She has been having contractions since yesterday that are more regular and stronger this am. She has been timing them and they are about every 5-7 minutes apart, lasting 40-60 seconds and painful. She has to stop and breathe through them. She denies any leaking of fluid, no bloody discharge. Baby has been active. She had BPP last Saturday that scored 4/8, reactive NST and estimated weight 8 lb 8 oz. Repeat BPP on Saturday was 8/8 again with reactive NST. She is GBS positive. She will be a TOLAC. First baby delivered by due to breech presentation and spontaneous labor at 37 weeks. Discussed risks of uterine rupture with , she still wants to proceed. I did have her consult with Dr. Hernandez earlier in her specifically to discuss TOLAC and he agreed that it would be appropriate. I did contact Dr. Bowers, who is datapower consultant for OB today to make her aware. Her was complicated by acute pancreatitis and was hospitalized for a week at 34 weeks gestation. She is careful about what she eats now and has been taking protonix daily and has not had a severe flare since her discharge. Her infectious disease screenings in early have been negative. 1 hour glucola was wnl. She did receive Flu shot and Tdap. Blood type is O positive. Patient's labor was augmented with pitocin at 2 mU/min. Attempts to increase pitocin further precipitated variable and late decelerations, but FHR recovered with decreasing the pitocin. AROM was performed at about 1715 to augment further. She had an epidural placed at about 1630 and had good relief with that. She received Penicillin G IV per protocol for GBS prophylaxis and a total of 3 doses given. Membranes were ruptured about 8hours prior to delivery. She was completely dilated shortly after midnight and I came in the the hospital. When I checked her, there was just an anterior lip, station +1 and we got her ready to start pushing. She pushed well and baby tolerated the second stage of labor. Time of delivery was 0110 for a baby boy, no nuchal cord and SHER presentation. Shoulders delivered without difficulty. Mouth and nose were suctioned with bulb suction and baby was dried and stimulated and he started crying. He was placed skin to skin on mother's abdomen and once the cord stopped pulsating, it was clamped and cut and baby was left skin to skin with Mom. Apgars were 8 and 9. Placenta delivered spontaneously at 0115 and was intact with 3 vessels in the cord. Pitocin bolus IV was started. There was a small first degree perineal laceration that was repaired with 3-0 vicryl, just a running suture. There was a small right vaginal sidewall tear that was repaired with 3-0 vicryl. There was a small skin split in the periurethral area that was not bleeding and no sutures were placed. Bimanual exam was performed after repair of lacerations and small amount of blood clot was expressed. Uterus was firm. EBL 100 ml. Both mom and baby were left in the delivery room in stable condition. - General Info Date of Service: 06/10/19 Admission Dx/Problem (Free Text): Patient Status Order with Admit Dx/Problem 06/09/19 12:21 Patient Status [ADT] Routine Admission Diagnosis/Problem Admission Diagnosis/Problem Functional Status: Reports: Pain Controlled - Review of Systems General: Reports: No Symptoms HEENT: Reports: No Symptoms Pulmonary: Reports: No Symptoms Cardiovascular: Reports: No Symptoms Gastrointestinal: Reports: No Symptoms Genitourinary: Reports: No Symptoms Musculoskeletal: Reports: No Symptoms Skin: Reports: No Symptoms Neurological: Reports: No Symptoms Psychiatric: Reports: No Symptoms - Patient Data Vitals - Most Recent: Last Vital Signs Temp 37.0 C 06/09/19 12:21 Pulse Resp 14 06/09/19 12:21 BP 117/69 06/09/19 12:21 Pulse Ox 99 06/09/19 12:21 Weight - Most Recent: 89.63 kg Lab Results Last 24 Hours: Laboratory Results - last 24 hr 06/09/19 06/09/19 06/09/19 Range/Units 12:40 12:40 12:40 WBC 9.50 (3.98-10.04) K/mm3 RBC 3.72 L (3.98-5.22) M/mm3 Hgb 11.7 (11.2-15.7) gm/dl Hct 35.8 (34.1-44.9) % MCV 96.2 H (79.4-94.8) fl MCH 31.5 (25.6-32.2) pg MCHC 32.7 (32.2-35.5) g/dl RDW Std Deviation 47.3 H (36.4-46.3) fL Plt Count 363 (182-369) K/mm3 MPV 9.5 (9.4-12.3) fl Neut % (Auto) 70.9 (34.0-71.1) % Lymph % (Auto) 20.0 (19.3-51.7) % [place] % (Auto) 7.8 (4.7-12.5) % Eos % (Auto) 0.9 (0.7-5.8) Baso % (Auto) 0.2 (0.1-1.2) % Neut # (Auto) 6.73 H (1.56-6.13) K/mm3 Lymph # (Auto) 1.90 (1.18-3.74) K/mm3 [place] # (Auto) 0.74 H (0.24-0.36) K/mm3 Eos # (Auto) 0.09 (0.04-0.36) K/mm3 Baso # (Auto) 0.02 (0.01-0.08) K/mm3 RPR Non-reactive (NONREACTIVE) Blood Type O POSITIVE Gel Antibody Screen Negative Med Orders - Current: Current Medications Diphenhydramine HCl (Benadryl) 25 mg IVPUSH Q6H PRN PRN Reason: pruritis Ephedrine Sulfate (Ephedrine Sulfate) 5 mg IVPUSH ASDIRECTED PRN PRN Reason: Hypotension Fentanyl (Sublimaze) 100 mcg EPIDUR Q3H PRN PRN Reason: Pain Last Admin: 06/09/19 16:07 Dose: 100 mcg Fentanyl/Bupivacaine HCl (Fentanyl/Bupivacaine/Ns 2 Mcg-0.125% 100 Ml) 100 ml EPIDUR ASDIRECTED PRN PRN Reason: Pain Last Admin: 06/09/19 22:07 Dose: 100 ml Lactated Ringer's (Ringers, Lactated) 1,000 mls @ 100 mls/hr IV ASDIRECTED MELVIN Last Admin: 06/09/19 17:53 Dose: 100 mls/hr Oxytocin/Lactated Ringer's (Pitocin In Lr 10 Units/1,000 Ml) 10 unit in 1,000 mls @ 12 mls/hr IV TITRATE MELVIN; Protocol Last Titration: 06/09/19 22:26 Dose: 3 munits/min, 18 mls/hr Oxytocin/Lactated Ringer's (Pitocin In Lr 10 Units/1,000 Ml) 10 unit in 1,000 mls @ 500 mls/hr IV .CONTINUOUS MELVIN Penicillin G Potassium 2.5 (millunits/ Sodium Chloride) 100 mls @ 200 mls/hr IV Q4H MELVIN Last Admin: 06/09/19 21:03 Dose: 200 mls/hr Ondansetron HCl (Zofran Odt) 4 mg PO Q4H PRN PRN Reason: Nausea/Vomiting Pantoprazole Sodium (Protonix) 40 mg PO ACBREAKFAST MELVIN Sodium Chloride (Saline Flush) 10 ml FLUSH ASDIRECTED PRN PRN Reason: Keep Vein Open Discontinued Medications Penicillin G Potassium 5 (millunits/ Sodium Chloride) 100 mls @ 100 mls/hr IV ONETIME ONE Stop: 06/09/19 13:59 Last Admin: 06/09/19 13:12 Dose: 100 mls/hr Lidocaine HCl (Xylocaine 1%) Confirm Administered Dose 50 ml .ROUTE .STK-MED ONE Stop: 06/10/19 01:19 Nalbuphine HCl (Nubain) 10 mg IVPUSH Q2H PRN PRN Reason: Pain - Exam General: Alert, Oriented, No Acute Distress HEENT: Mucous Membr. Moist/[place] Neck: Supple Lungs: Normal Respiratory Effort Cardiovascular: Regular Rate, Regular Rhythm GI/Abdominal Exam: Normal Bowel Sounds, Soft (Female) Exam: Vaginal Bleeding, Vaginal Tears Back Exam: Normal Inspection, Full Range of Motion Extremities: Normal Inspection, Normal Range of Motion, Pedal Edema Skin: Warm, Dry, Intact Neurological: No New Focal Deficit Psy/Mental Status: Alert, Normal Affect, Normal Mood - Problem List & Annotations (1) 39 weeks gestation of SNOMED Code(s): 19207119 Code(s): Z3A.39 - 39 WEEKS GESTATION OF Status: Acute Current Visit: Yes (2) Group B streptococcal carriage complicating SNOMED Code(s): 908258971323810 Code(s): O99.820 - STREPTOCOCCUS B CARRIER STATE COMPLICATING Status: Acute Current Visit: Yes (3) Encounter for trial of labor SNOMED Code(s): 956133441 Code(s): USO0895 - Status: Acute Current Visit: Yes (4) Normal spontaneous vaginal delivery SNOMED Code(s): 38280970, 040321073 Code(s): O80 - ENCOUNTER FOR FULL-TERM UNCOMPLICATED DELIVERY Status: Acute Current Visit: Yes (5) Mother currently breast-feeding SNOMED Code(s): 671280576 Code(s): Z39.1 - ENCOUNTER FOR CARE AND EXAMINATION OF LACTATING MOTHER Status: Acute Current Visit: Yes - Problem List Review Problem List Initiated/Reviewed/Updated: Yes - My Orders Last 24 Hours: My Active Orders 06/09/19 12:20 BLOOD BANK HOLD SPECIMEN [BBK] Stat Ondansetron [Zofran ODT] 4 mg PO Q4H PRN Sodium Chloride 0.9% [Saline Flush] 10 ml FLUSH ASDIRECTED PRN Resuscitation Status Routine 06/09/19 12:21 Patient Status [ADT] Routine Activity as Tolerated [RC] PFP Communication Order [RC] ASDIRECTED Heart Tones [RC] ASDIRECTED Non Stress Test [RC] PER UNIT ROUTINE Notify Provider [RC] PFP Notify Provider [RC] PRN Peripheral IV Care [RC] . DIRECTED Vital Signs [RC] PER UNIT ROUTINE Electronic Heart Tones Ext w TOCO [WOMSER] Routine Electronic Heart Tones Internal [WOMSER] Per Unit Routine Peripheral IV Insertion Adult [OM.PC] Routine 06/09/19 12:30 Lactated Ringers [Ringers, Lactated] 1,000 ml IV ASDIRECTED Oxytocin/Lactated Ringers [Pitocin in LR 10 Units/1,000 ML] 10 unit in 1,000 ml IV .CONTINUOUS Oxytocin/Lactated Ringers [Pitocin in LR 10 Units/1,000 ML] 10 unit in 1,000 ml IV TITRATE 06/09/19 17:00 Penicillin G Potassium [Pfizerpen] 2.5 millunits Sodium Chloride 0.9% [Normal Saline] 100 ml IV Q4H 06/09/19 Lunch Regular Diet [DIET] 06/10/19 01:41 Patient Status Manage Transfer [TRANSFER] Routine 06/10/19 06:00 Pantoprazole [ProTONIX] 40 mg PO ACBREAKFAST - Assessment Assessment:: Spontaneous vaginal delivery at 39+5 weeks gestation. Healthy baby boy. EBL 100 ml. - Plan Plan:: - Routine care. Received 3 doses of IV penicillin G during labor. - encourage skin to skin, watch for feeding cues. Will need support and education. History of pancreatitis - continue low fat diet and protonix 40 mg po daily.
[2019-06-10] MEDS ORDERED: Lidocaine 1% 50 ML MDV INJECT ONE (02:35)
[2019-06-10] MEDS ORDERED: Simethicone 80 MG Tab.Chew PO PRN (02:43)
[2019-06-10] MEDS ORDERED: Benzocaine/Menthol 20%-0.5% Spray 56 GM Canister TOP PRN (02:43)
[2019-06-10] MEDS: Witch Hazel Medicated Pads 40/Jar TOP PRN (03:16)
[2019-06-10] MEDS: Ibuprofen 800 MG Tab PO PRN ×4 (03:16→23:39)
[2019-06-10] MEDS: Docusate Sodium 100 MG Cap PO PRN ×2 (03:17→10:57)
[2019-06-10] MEDS ORDERED: diphenhydrAMINE 50 MG/ML SDV IVPUSH ONE (04:17)
--- NOTE | 2019-06-10 07:58 | PCM48HPAN ---
Post Anesthesia Note - EVALUATION WITHIN 48HRS OF ANESTHETIC Vital Signs in Normal Range: Yes Patient Participated in Evaluation: Yes Respiratory Function Stable: Yes Airway Patent: Yes Cardiovascular Function Stable: Yes Hydration Status Stable: Yes Pain Control Satisfactory: Yes Nausea and Vomiting Control Satisfactory: Yes Mental Status Recovered: Yes Vital Signs: Last Vital Signs Temp 37.0 C 06/09/19 12:21 Pulse Resp 14 06/09/19 12:21 BP 117/69 06/09/19 12:21 Pulse Ox 99 06/09/19 12:21
[2019-06-10] MEDS: Prenatal Multivitamin with Calcium/Folic Acid/Iron Tab PO SCH (10:57)
[2019-06-10] MEDS: Pantoprazole 40 MG Tab.CR PO SCH (11:03)
[2019-06-10] MEDS: Penicillin G Potassium 2.5 MILLUNITS in Sodium Chloride 0.9% 100 ML IV SCH (11:03)
--- NOTE | 2019-06-10 15:01 | PCM.PN ---
- General Info Date of Service: 06/10/19 Admission Dx/Problem (Free Text): Patient Status Order with Admit Dx/Problem 06/09/19 12:21 Patient Status [ADT] Routine Admission Diagnosis/Problem Admission Diagnosis/Problem Subjective Update: Patient is doing well, reports bleeding is slowing. No clots today. She is voiding well. Appetite is good, no nausea. Complains of pelvic cramping, but pain relieved with ibuprofen. is coming. Denies nipple pain or cracking of nipples. Functional Status: Reports: Pain Controlled, Tolerating Diet, Ambulating, Urinating - Review of Systems General: Reports: No Symptoms HEENT: Reports: No Symptoms Pulmonary: Reports: No Symptoms Cardiovascular: Reports: No Symptoms Gastrointestinal: Reports: No Symptoms Genitourinary: Reports: No Symptoms Musculoskeletal: Reports: Back Pain (mild discomfort at epidural site) Skin: Reports: No Symptoms Neurological: Reports: No Symptoms Psychiatric: Reports: No Symptoms - Patient Data Vitals - Most Recent: Last Vital Signs Temp 36.6 C 06/10/19 08:47 Pulse 79 06/10/19 08:47 Resp 14 06/10/19 08:47 BP 121/70 06/10/19 08:47 Pulse Ox 98 06/10/19 08:47 Weight - Most Recent: 89.63 kg I&O - Last 24 Hours: Intake & Output 06/09/19 06/10/19 06/10/19 22:59 06:59 14:59 Intake Total 4100 1040 Balance 4100 1040 Lab Results Last 24 Hours: Laboratory Results - last 24 hr 06/09/19 06/10/19 Range/Units 12:40 05:25 WBC 21.05 H (3.98-10.04) K/mm3 RBC 3.39 L (3.98-5.22) M/mm3 Hgb 10.5 L (11.2-15.7) gm/dl Hct 32.8 L (34.1-44.9) % MCV 96.8 H (79.4-94.8) fl MCH 31.0 (25.6-32.2) pg MCHC 32.0 L (32.2-35.5) g/dl RDW Std Deviation 46.8 H (36.4-46.3) fL Plt Count 322 (182-369) K/mm3 MPV 9.7 (9.4-12.3) fl RPR Non-reactive (NONREACTIVE) Med Orders - Current: Current Medications Acetaminophen (Tylenol) 650 mg PO Q4H PRN PRN Reason: mild pain or fever Benzocaine/Menthol (Dermoplast Pain Relief [place]) 0 gm TOP ASDIRECTED PRN PRN Reason: Perineal Comfort Measure Last Admin: 06/10/19 03:15 Dose: 1 tub Docusate Sodium (Colace) 100 mg PO BID PRN PRN Reason: Constipation Last Admin: 06/10/19 10:57 Dose: 100 mg Ibuprofen (Motrin) 800 mg PO Q6H PRN PRN Reason: Mild pain or fever Last Admin: 06/10/19 10:57 Dose: 800 mg Pantoprazole Sodium (Protonix) 40 mg PO ACBREAKFAST [facility] Last Admin: 06/10/19 11:03 Dose: Not Given Prenat Multivit/Luke/Iron/Folic Ac ( Plus Iron) 1 each PO DAILY [facility] Last Admin: 06/10/19 10:57 Dose: 1 each Simethicone (Simethicone) 80 mg PO Q4H PRN PRN Reason: Gas Witch Kimberly (Tucks) 1 pad TOP ASDIRECTED PRN PRN Reason: Perineal Comfort Measure Last Admin: 06/10/19 03:16 Dose: 1 tub Discontinued Medications Bupivacaine HCl (Sensorcaine-Mpf 0.25%) 10 ml .ROUTE .STK-MED ONE Stop: 06/09/19 00:01 Diphenhydramine HCl (Benadryl) 25 mg IVPUSH Q6H PRN PRN Reason: pruritis Diphenhydramine HCl (Benadryl) 25 mg IVPUSH ONETIME ONE Stop: 06/10/19 04:18 Last Admin: 06/10/19 04:37 Dose: 25 mg Ephedrine Sulfate (Ephedrine Sulfate) 5 mg IVPUSH ASDIRECTED PRN PRN Reason: Hypotension Fentanyl (Sublimaze) 100 mcg EPIDUR Q3H PRN PRN Reason: Pain Last Admin: 06/09/19 16:07 Dose: 100 mcg Fentanyl/Bupivacaine HCl (Fentanyl/Bupivacaine/Ns 2 Mcg-0.125% 100 Ml) 100 ml EPIDUR ASDIRECTED PRN PRN Reason: Pain Last Admin: 06/09/19 22:07 Dose: 100 ml Lactated Ringer's (Ringers, Lactated) 1,000 mls @ 100 mls/hr IV ASDIRECTED MELVIN Last Admin: 06/09/19 17:53 Dose: 100 mls/hr Oxytocin/Lactated Ringer's (Pitocin In Lr 10 Units/1,000 Ml) 10 unit in 1,000 mls @ 12 mls/hr IV TITRATE MELVIN; Protocol Last Titration: 06/09/19 22:26 Dose: 3 munits/min, 18 mls/hr Oxytocin/Lactated Ringer's (Pitocin In Lr 10 Units/1,000 Ml) 10 unit in 1,000 mls @ 500 mls/hr IV .CONTINUOUS MELVIN Penicillin G Potassium 5 (millunits/ Sodium Chloride) 100 mls @ 100 mls/hr IV ONETIME ONE Stop: 06/09/19 13:59 Last Admin: 06/09/19 13:12 Dose: 100 mls/hr Penicillin G Potassium 2.5 (millunits/ Sodium Chloride) 100 mls @ 200 mls/hr IV Q4H MELVIN Last Admin: 06/10/19 11:03 Dose: Not Given Lidocaine HCl (Xylocaine 1%) Confirm Administered Dose 50 ml .ROUTE .STK-MED ONE Stop: 06/10/19 01:19 Last Admin: 06/10/19 11:03 Dose: Not Given Lidocaine HCl (Xylocaine 1%) 50 ml INJECT ONETIME ONE Stop: 06/10/19 02:36 Last Admin: 06/10/19 03:15 Dose: 50 ml Nalbuphine HCl (Nubain) 10 mg IVPUSH Q2H PRN PRN Reason: Pain Ondansetron HCl (Zofran Odt) 4 mg PO Q4H PRN PRN Reason: Nausea/Vomiting Sodium Chloride (Saline Flush) 10 ml FLUSH ASDIRECTED PRN PRN Reason: Keep Vein Open - Exam General: Alert, Oriented, No Acute Distress HEENT: Mucous Membr. Moist/[place] Neck: Supple Lungs: Normal Respiratory Effort Cardiovascular: Regular Rate, Regular Rhythm GI/Abdominal Exam: Soft, Non-Tender (Female) Exam: Fundal Height (Fundus is at umbilicus at this time. ), Vaginal Bleeding Back Exam: Normal Inspection (No bruising at epidural site. Mild tenderness to palpation at the site), Full Range of Motion Extremities: Normal Inspection, Pedal Edema (trace) Skin: Warm, Dry, Intact Wound/Incisions: Healing Well Neurological: No New Focal Deficit Psy/Mental Status: Alert, Normal Affect, Normal Mood Sepsis Event Note - Evaluation Sepsis Screening Result: No Definite Risk - Focused Exam Vital Signs: Vital Signs Temp Pulse Resp BP Pulse Ox 06/10/19 08:47 36.6 C 79 14 121/70 98 06/10/19 04:41 36.8 C 89 15 108/54 L 97 Date Exam was Performed: 06/10/19 Time Exam was Performed: 14:57 - Problem List & Annotations (1) 39 weeks gestation of SNOMED Code(s): 67890919 Code(s): Z3A.39 - 39 WEEKS GESTATION OF Status: Acute Current Visit: Yes (2) Group B streptococcal carriage complicating SNOMED Code(s): 245220434457298 Code(s): O99.820 - STREPTOCOCCUS B CARRIER STATE COMPLICATING Status: Acute Current Visit: Yes (3) Encounter for trial of labor SNOMED Code(s): 455830080 Code(s): KWD7611 - Status: Acute Current Visit: Yes (4) Normal spontaneous vaginal delivery SNOMED Code(s): 78063434, 030785027 Code(s): O80 - ENCOUNTER FOR FULL-TERM UNCOMPLICATED DELIVERY Status: Acute Current Visit: Yes (5) Mother currently breast-feeding SNOMED Code(s): 864773762 Code(s): Z39.1 - ENCOUNTER FOR CARE AND EXAMINATION OF LACTATING MOTHER Status: Acute Current Visit: Yes - Problem List Review Problem List Initiated/Reviewed/Updated: Yes - My Orders Last 24 Hours: My Active Orders 06/10/19 02:43 Patient Status [ADT] Routine Activity as Tolerated [RC] PER UNIT ROUTINE May Shower [RC] ASDIRECTED Up ad Lucia [RC] ASDIRECTED Vital Signs [RC] 03,09,15,21 Acetaminophen [Tylenol] 650 mg PO Q4H PRN Benzocaine/Menthol [Dermoplast Pain Relief [place]] See Dose Instructions TOP ASDIRECTED PRN Docusate Sodium [Colace] 100 mg PO BID PRN Ibuprofen [Motrin] 800 mg PO Q6H PRN Simethicone 80 mg PO Q4H PRN witch Kimberly [Tucks] 1 pad TOP ASDIRECTED PRN Assess Lochia [WOMSER] Per Unit Routine Assess Uterine Involution [WOMSER] Per Unit Routine Breast Pump [WOMSER] Per Unit Routine Heat Therapy [OM.PC] PRN Perineal Care [OM.PC] Per Unit Routine Sitz Bath [OM.PC] Per Unit Routine 06/10/19 06:00 Pantoprazole [ProTONIX] 40 mg PO ACBREAKFAST 06/10/19 09:00 Vit with Ca/FA/Iron [ Plus Iron] 1 each PO DAILY 06/11/19 02:43 Heat Therapy [OM.PC] PRN - Assessment Assessment:: Spontaneous vaginal delivery at 39+5 weeks gestation. Healthy baby boy. EBL 100 ml. 06/10/19: is going well, no nipple pain or bruising. Bleeding is slowing. Pain controlled with ibuprofen. - Plan Plan:: - Routine care. Received 3 doses of IV penicillin G during labor. - encourage skin to skin, watch for feeding cues. Will need support and education. Discussed trying to get baby to nurse every 2 hours. History of pancreatitis - continue low fat diet and protonix 40 mg po daily.
[2019-06-11] MEDS: Acetaminophen 325 MG Tab PO PRN ×2 (04:54→09:10)
[2019-06-11] MEDS: Ibuprofen 800 MG Tab PO PRN ×3 (04:57→17:39)
[2019-06-11] MEDS: Prenatal Multivitamin with Calcium/Folic Acid/Iron Tab PO SCH (09:11)
[2019-06-11] MEDS: Pantoprazole 40 MG Tab.CR PO SCH (09:12)
--- NOTE | 2019-06-11 19:38 | PCM.DCSUM1 ---
Discharge Summary - Hospital Course Free Text/Narrative:: 28 yo A2 female at 39+4 weeks gestation admitted in early labor. She had been having contractions since 06/08/19 that were more regular and stronger that am. She denied any leaking of fluid, no bloody discharge. Baby has been active. She had BPP last Saturday that scored 4/8, reactive NST and estimated weight 8 lb 8 oz. Repeat BPP on Saturday was 8/8 again with reactive NST. She is GBS positive. She will be a TOLAC. First baby delivered by due to breech presentation and spontaneous labor at 37 weeks. Discussed risks of uterine rupture with , she still wants to proceed. I did have her consult with Dr. Hernandez earlier in her specifically to discuss TOLAC and he agreed that it would be appropriate. I did contact Dr. Bowers, who is training professional for OB today to make her aware. Her was complicated by acute pancreatitis and was hospitalized for a week at 34 weeks gestation. She is careful about what she eats now and has been taking protonix daily and has not had a severe flare since her discharge. Her infectious disease screenings in early have been negative. 1 hour glucola was wnl. She did receive Flu shot and Tdap. Blood type is O positive. Patient's labor was augmented with pitocin at 2 mU/min. Attempts to increase pitocin further precipitated variable and late decelerations, but FHR recovered with decreasing the pitocin. AROM was performed at about 1715 to augment further. She had an epidural placed at about 1630 and had good relief with that. She received Penicillin G IV per protocol for GBS prophylaxis and a total of 3 doses given. Membranes were ruptured about 8hours prior to delivery. She was completely dilated shortly after midnight and I came in the the hospital. When I checked her, there was just an anterior lip, station +1 and we got her ready to start pushing. She pushed well and baby tolerated the second stage of labor. Time of delivery was 0110 for a baby boy, no nuchal cord and SHER presentation. Shoulders delivered without difficulty. Mouth and nose were suctioned with bulb suction and baby was dried and stimulated and he started crying. He was placed skin to skin on mother's abdomen and once the cord stopped pulsating, it was clamped and cut and baby was left skin to skin with Mom. Apgars were 8 and 9. Placenta delivered spontaneously at 0115 and was intact with 3 vessels in the cord. Pitocin bolus IV was started. There was a small first degree perineal laceration that was repaired with 3-0 vicryl, just a running suture. There was a small right vaginal sidewall tear that was repaired with 3-0 vicryl. There was a small skin split in the periurethral area that was not bleeding and no sutures were placed. Bimanual exam was performed after repair of lacerations and small amount of blood clot was expressed. Uterus was firm. EBL 100 ml. Both mom and baby were left in the delivery room in stable condition. She has done well , using ibuprofen 800 mg and tylenol for pelvic cramping. She has noticed some arm pain today, most likely from when she was pushing. Denies headache. She has had good appetite. Bleeding is slowing, not passing clots. She is and was having nipple pain and some bruising of right nipple. She worked with [facility] and baby is latching better now and she is more comfortable. She is feeling her breasts getting heavier and filling. Hgb down to 10.5 yesterday after delivery. Diagnosis: Stroke: No Modified [place] Scale: No Symptoms at All Modified [place] Scale Score: 0 - Discharge Data Discharge Date: 06/11/19 Discharge Disposition: Home, Self-Care 01 Condition: Good - Referral to Home Health Primary Care Physician: Jessica Harris MD - Discharge Diagnosis/Problem(s) (1) 39 weeks gestation of SNOMED Code(s): 86942507 ICD Code: Z3A.39 - 39 WEEKS GESTATION OF Status: Acute Current Visit: Yes (2) Group B streptococcal carriage complicating SNOMED Code(s): 135073987268763 ICD Code: O99.820 - STREPTOCOCCUS B CARRIER STATE COMPLICATING Status: Acute Current Visit: Yes (3) Encounter for trial of labor SNOMED Code(s): 489804696 ICD Code: [id number] - Status: Acute Current Visit: Yes (4) Normal spontaneous vaginal delivery SNOMED Code(s): 22500370, 578890162 ICD Code: O80 - ENCOUNTER FOR FULL-TERM UNCOMPLICATED DELIVERY Status: Acute Current Visit: Yes (5) Mother currently breast-feeding SNOMED Code(s): 729415754 ICD Code: Z39.1 - ENCOUNTER FOR CARE AND EXAMINATION OF LACTATING MOTHER Status: Acute Current Visit: Yes (6) Vaginal after , delivered, current hospitalization SNOMED Code(s): 470230468 ICD Code: O34.219 - MATERNAL CARE FOR UNSP TYPE SCAR FROM PREVIOUS DEL Status: Acute Current Visit: Yes - Patient Instructions Diet: Usual Diet as Tolerated (Low fat diet), Drink 8-10+ Glasses/Day Activity: As Tolerated Driving: May Drive Today Showering/Bathing: May Shower Notify Provider of: Fever, Increased Pain, Swelling and Redness, Nausea and/or Vomiting - Discharge Plan *PRESCRIPTION DRUG MONITORING PROGRAM REVIEWED*: Yes *COPY OF PRESCRIPTION DRUG MONITORING REPORT IN PATIENT XOCHILT: No Home Medications: Home Meds Vit with Ca/FA/Iron [ Plus Iron] 1 each PO DAILY tablet [Rx] Pantoprazole Sodium [Protonix] 40 mg PO DAILY 06/09/19 [History] Acetaminophen [Tylenol] 650 mg PO Q4H PRN tablet 06/11/19 [Rx] Benzocaine/Menthol [Dermoplast Pain Relief [place]] 1 applic TOP ASDIRECTED PRN canister 06/11/19 [Rx] Docusate Sodium [Colace] 100 mg PO BID PRN cap 06/11/19 [Rx] Ibuprofen [Motrin] 800 mg PO Q6H PRN tablet 06/11/19 [Rx] witch Hyacinth [Tucks] 1 pad TOP ASDIRECTED PRN pad 06/11/19 [Rx] Oxygen Therapy Mode: Room Air Patient Handouts: , and Inducing , Rooming- In With Your , Exclusive , Home Care Instructions for Mom, Vaginal Delivery, Care After, Breast Engorgement, Breast Pumping Tips, Easy-to- Read, Tips for a Good Latch - Discharge Summary/Plan Comment DC Time >30 min.: No Discharge Summary/Plan Comment: , doing well - continue routine vaginal delivery care. Pain controlled with ibuprofen and tylenol. Vaginal bleeding has slowed. continue vitamin. Advised no intercourse for 6 weeks. Follow up for visit in the clinic in 6 weeks. - she worked with [facility] today and baby is latching better and she is more comfortable with . Advised to nurse on demand and make sure baby is getting a good latch. History of acute pancreatitis - continue pantoprazole and low fat diet. - General Info Date of Service: 06/11/19 Admission Dx/Problem (Free Text: Patient Status Order with Admit Dx/Problem 06/09/19 12:21 Patient Status [ADT] Routine Admission Diagnosis/Problem Admission Diagnosis/Problem Subjective Update: Patient is doing well, reports bleeding is slowing. No clots today. She is voiding well. Appetite is good, no nausea. Complains of pelvic cramping, but pain relieved with ibuprofen. is going better today after working with [facility]. She has some bruising of the right nipple from poor latch, but no pain with latching now. She has some pain in her arms from pushing. Denies headache or dizziness. - Patient Data Vitals - Most Recent: Last Vital Signs Temp 36.7 C 06/11/19 15:20 Pulse 94 06/11/19 15:20 Resp 16 06/11/19 15:20 BP 123/108 H 06/11/19 15:20 Pulse Ox 99 06/11/19 15:20 Repeat bp at 1800 was 110/60, I think the bp above was an error. Weight - Most Recent: 89.63 kg I&O - Last 24 hours: Intake & Output 06/11/19 06/11/19 06/11/19 06:59 14:59 22:59 Intake Total 240 560 Balance 240 560 Med Orders - Current: Current Medications Acetaminophen (Tylenol) 650 mg PO Q4H PRN PRN Reason: mild pain or fever Last Admin: 06/11/19 09:10 Dose: 650 mg Benzocaine/Menthol (Dermoplast Pain Relief [place]) 0 gm TOP ASDIRECTED PRN PRN Reason: Perineal Comfort Measure Last Admin: 06/10/19 03:15 Dose: 1 tub Docusate Sodium (Colace) 100 mg PO BID PRN PRN Reason: Constipation Last Admin: 06/10/19 10:57 Dose: 100 mg Ibuprofen (Motrin) 800 mg PO Q6H PRN PRN Reason: Mild pain or fever Last Admin: 06/11/19 17:39 Dose: 800 mg Pantoprazole Sodium (Protonix) 40 mg PO ACBREAKFAST MELVIN Last Admin: 06/11/19 09:12 Dose: Not Given Prenat Multivit/[place]/Iron/Folic Ac ( Plus Iron) 1 each PO DAILY MELVIN Last Admin: 06/11/19 09:11 Dose: 1 each Simethicone (Simethicone) 80 mg PO Q4H PRN PRN Reason: Gas [place] Hyacinth (Tucks) 1 pad TOP ASDIRECTED PRN PRN Reason: Perineal Comfort Measure Last Admin: 06/10/19 03:16 Dose: 1 tub Discontinued Medications Bupivacaine HCl (Sensorcaine-Mpf 0.25%) 10 ml .ROUTE .STK-MED ONE Stop: 06/09/19 00:01 Diphenhydramine HCl (Benadryl) 25 mg IVPUSH Q6H PRN PRN Reason: pruritis Diphenhydramine HCl (Benadryl) 25 mg IVPUSH ONETIME ONE Stop: 06/10/19 04:18 Last Admin: 06/10/19 04:37 Dose: 25 mg Ephedrine Sulfate (Ephedrine Sulfate) 5 mg IVPUSH ASDIRECTED PRN PRN Reason: Hypotension Fentanyl (Sublimaze) 100 mcg EPIDUR Q3H PRN PRN Reason: Pain Last Admin: 06/09/19 16:07 Dose: 100 mcg Fentanyl/Bupivacaine HCl (Fentanyl/Bupivacaine/Ns 2 Mcg-0.125% 100 Ml) 100 ml EPIDUR ASDIRECTED PRN PRN Reason: Pain Last Admin: 06/09/19 22:07 Dose: 100 ml Lactated Ringer's (Ringers, Lactated) 1,000 mls @ 100 mls/hr IV ASDIRECTED MELVIN Last Admin: 06/09/19 17:53 Dose: 100 mls/hr Oxytocin/Lactated Ringer's (Pitocin In Lr 10 Units/1,000 Ml) 10 unit in 1,000 mls @ 12 mls/hr IV TITRATE MELVIN; Protocol Last Titration: 06/09/19 22:26 Dose: 3 munits/min, 18 mls/hr Oxytocin/Lactated Ringer's (Pitocin In Lr 10 Units/1,000 Ml) 10 unit in 1,000 mls @ 500 mls/hr IV .CONTINUOUS MELVIN Penicillin G Potassium 5 (millunits/ Sodium Chloride) 100 mls @ 100 mls/hr IV ONETIME ONE Stop: 06/09/19 13:59 Last Admin: 06/09/19 13:12 Dose: 100 mls/hr Penicillin G Potassium 2.5 (millunits/ Sodium Chloride) 100 mls @ 200 mls/hr IV Q4H MELVIN Last Admin: 06/10/19 11:03 Dose: Not Given Lidocaine HCl (Xylocaine 1%) Confirm Administered Dose 50 ml .ROUTE .STK-MED ONE Stop: 06/10/19 01:19 Last Admin: 06/10/19 11:03 Dose: Not Given Lidocaine HCl (Xylocaine 1%) 50 ml INJECT ONETIME ONE Stop: 06/10/19 02:36 Last Admin: 06/10/19 03:15 Dose: 50 ml Nalbuphine HCl (Nubain) 10 mg IVPUSH Q2H PRN PRN Reason: Pain Ondansetron HCl (Zofran Odt) 4 mg PO Q4H PRN PRN Reason: Nausea/Vomiting Sodium Chloride (Saline Flush) 10 ml FLUSH ASDIRECTED PRN PRN Reason: Keep Vein Open - Exam General: Reports: Alert, Oriented, No Acute Distress HEENT: Reports: Pupils Equal, Mucous Membr. Moist/[place] Neck: Reports: Supple Lungs: Reports: Clear to Auscultation, Normal Respiratory Effort Cardiovascular: Reports: Regular Rate, Regular Rhythm GI/Abdominal Exam: Normal Bowel Sounds, Soft (Female) Exam: Normal External Exam, Fundal Height (Fundus is 1 above/at umbilicus after fundal massage), Vaginal Bleeding Rectal (Female) Exam: Deferred Back Exam: Reports: Normal Inspection, Full Range of Motion (No bruising at epidural site) Extremities: Normal Inspection, Normal Range of Motion, Non-Tender, Pedal Edema (trace, no calf tenderness) Skin: Reports: Warm, Dry, Intact Wound/Incisions: Reports: Healing Well Neurological: Reports: No New Focal Deficit Psy/Mental Status: Reports: Alert, Normal Affect, Normal Mood
[2019-06-11] MEDS: Witch Hazel Medicated Pads 40/Jar TOP PRN (20:31)
== END 2019-06-11 21:00 | disposition home or self-care (01) | DRG 560 ==
LOC: JD.OB 12:08 → JD.OBCHECK 12:08 → JD.OB 12:21 → JD.OBCHECK 12:21 → OBSVTOIN 06-10 01:10 → JD.OB 06-10 01:11
PROVIDERS: ADMIT Family Medicine; ATTEND Family Medicine
PROC: 10E0XZZ Delivery of Products of Conception, External Approach (ICD-10-PCS; principal; 2019-06-10)
PROC: 10907ZC Drainage of Amniotic Fluid, Therapeutic from Products of Conception, Via Natural or Artificial Opening (ICD-10-PCS; 2019-06-10)
PROC: 0HQ9XZZ Repair Perineum Skin, External Approach (ICD-10-PCS; 2019-06-10)
PROC: 3E0R3BZ Introduction of Anesthetic Agent into Spinal Canal, Percutaneous Approach (ICD-10-PCS; 2019-06-10)
DX: O99.824 Streptococcus B carrier state complicating childbirth (principal); K21.9 Gastro-esophageal reflux disease without esophagitis; O99.62 Diseases of the digestive system complicating childbirth; O34.219 Maternal care for unspecified type scar from previous cesarean delivery; O70.0 First degree perineal laceration during delivery; Z90.49 Acquired absence of other specified parts of digestive tract; Z88.0 Allergy status to penicillin; Z91.018 Allergy to other foods; Z79.899 Other long term (current) drug therapy; Z37.0 Single live birth; Z3A.39 39 weeks gestation of pregnancy
CPT/HCPCS: 01967; 36415; 51702; 59025; 59409; 85025; 85027; 86592; 86850; 86900; 86901; A9270-GY; J1200; J2001; J2540; J2590; J3010; J3490; J7050; J7120